=== PATIENT | female | born 1945 | race Caucasian/White ===

== ENCOUNTER 2017-06-11 19:39 | Inpatient (IN) | payer MEDICARE ==
[2017-06-11] MEDS ORDERED: SODIUM CHLORIDE 0.9% 500 ML IV STA (20:09)
--- NOTE | 2017-06-11 20:18 | ED ---
General Adult HPI - General Source: patient, RN notes reviewed Mode of arrival: EMS Limitations: altered mental status <Mehdi Starks - Last Filed: 06/11/17 20:48> <Ernesto Bailon - Last Filed: 06/11/17 23:35> - General Chief complaint: Fall Stated complaint: Fall Time Seen by Provider: 06/11/17 19:40 - History of Present Illness Initial comments: This is a 72-year-old female with a past medical history significant for dementia. Patient comes to the emergency department after she tripped and hurt her right knee and hurt her neck. Patient states she doesn't remember much about the fall but she does not remember having any difficulty breathing shortness of breath or chest pain. Patient believes she just tripped which is not 100% sure because of her dementia she is not that accurate. Patient denies any headache or head pain. Patient denies any numbness or weakness. Patient denies any abdominal pain. Patient denies any recent fever chills or cough. Patient denies any upper extremity or lower extremity injuries. (Mehdi Starks) - Related Data Home Medications Medication Instructions Recorded Confirmed Magnesium Oxide [Mag-Ox] 250 mg PO BID@0800,1800 08/18/15 06/11/17 Potassium Chloride [Klor-Con 20] 20 meq PO HS@1800 08/18/15 06/11/17 Pravastatin Sodium [Pravachol] 40 mg PO Q48H 08/18/15 06/11/17 Diltiazem Oral [Cardizem Oral] 30 mg PO BID@0800,1800 06/11/17 06/11/17 Furosemide [Lasix] 40 mg PO DAILY@0800 06/11/17 06/11/17 Irbesartan [Avapro] 300 mg PO DAILY@0800 06/11/17 06/11/17 Lisinopril [Prinivil] 10 mg PO DAILY 06/11/17 06/11/17 Memantine HCl [Namenda Xr] 14 mg PO DAILY@0800 06/11/17 06/11/17 Pantoprazole Sodium [Protonix] 40 mg PO DAILY@0800 06/11/17 06/11/17 cloNIDine HCL [Catapres] 0.4 mg PO BID@0800,1800 06/11/17 06/11/17 Allergies Allergy/AdvReac Type Severity Reaction Status Date / Time No Known Allergies Allergy Verified 06/11/17 19:54 Review of Systems ROS Other: All systems not noted in ROS Statement are negative. <Mehdi Starks - Last Filed: 06/11/17 20:48> ROS Other: All systems not noted in ROS Statement are negative. <AdamarisErnesto - Last Filed: 06/11/17 23:35> ROS Statement: Those systems with pertinent positive or pertinent negative responses have been documented in the HPI. Past Medical History Past Medical History: Atrial Fibrillation, Dementia, Hypertension, Memory Impairment History of Any Multi-Drug Resistant Organisms: None Reported Past Surgical History: Hysterectomy, Joint Replacement, Tonsillectomy Additional Past Surgical History / Comment(s): rt knee replacement Past Anesthesia/Blood Transfusion Reactions: No Reported Reaction Past Psychological History: No Psychological Hx Reported Smoking Status: Never smoker Past Alcohol Use History: None Reported Past Drug Use History: None Reported - Past Family History Father History Unknown: Yes <StarksMehdi - Last Filed: 06/11/17 20:48> General Exam Limitations: altered mental status <Mehdi Starks - Last Filed: 06/11/17 20:48> <BraddatErnesto - Last Filed: 06/11/17 23:35> - General Exam Comments Initial Comments: GENERAL: Patient is well-developed and well-nourished. Patient is nontoxic and well- hydrated and is in mild distress. ENT: Neck is soft and supple. No significant lymphadenopathy is noted. Oropharynx is clear. Moist mucous membranes. Neck has full range of motion without eliciting any pain. EYES: The sclera were anicteric and conjunctiva were pink and moist. Extraocular movements were intact and pupils were equal round and reactive to light. Eyelids were unremarkable. PULMONARY: Unlabored respirations. Good breath sounds bilaterally. No audible rales rhonchi or wheezing was noted. CARDIOVASCULAR: There is a regular rate and rhythm without any murmurs gallops or rubs. ABDOMEN: Soft and nontender with normal bowel sounds. No palpable organomegaly was noted. There is no palpable pulsatile mass. SKIN: Skin is clear with no lesions or rashes and otherwise unremarkable. NEUROLOGIC: Patient is alert and oriented 2. Cranial nerves II through XII are grossly intact. Motor and sensory are also intact. Normal speech, volume and content. Symmetrical smile. MUSCULOSKELETAL: Patient's right knee is tender to palpation anterior and lateral aspect of the knee LYMPHATICS: No significant lymphadenopathy is noted PSYCHIATRIC: Normal psychiatric evaluation. (Mehdi Starks) Vital Signs 06/11/17 06/11/17 19:40 23:05 Temperature 100.3 F H Pulse Rate 62 75 Respiratory 22 20 Rate Blood Pressure 161/70 146/63 O2 Sat by Pulse 98 97 Oximetry Medical Decision Making - Lab Data Result diagrams: 06/11/17 20:24 <Mehdi Starks - Last Filed: 06/11/17 20:48> - Lab Data Result diagrams: 06/11/17 20:24 06/11/17 20:24 <Ernesto Bailon - Last Filed: 06/11/17 23:35> - Medical Decision Making EKG shows atrial fibrillation at 64 bpm QRS is 94 Q-T intervals 410 QTC is 422. Patient's EKG shows no ST segment elevation or depression or T wave abnormalities are noted. Dr. Chacon will be taking over the care of this patient at 9 PM (Mehdi Starks) Receive this patient has a sign out, pending her studies. I did reevaluate the patient following the studies, and discuss her injuries with her. The patient does appear to have some moderate to severe underlying dementia. In light of this I also phoned the patient's brother who has subsequent come to the hospital and is at the bedside. I did have discussion with the patient prior to his arrival about CODE STATUS and the patient does not demonstrate the capacity to make this decision, nor is she able to answer questions regarding CODE STATUS. Discussion with the patient's brother and his are reveal that she has previously expressed desire not to have machine life-support and they state that they believe is her desire to not have CPR. Discussed the case with Dr[facility], and he will admit the patient provided orthopedic surgery can manage her injuries. I discussed case with the physician assistant director of financial aid covering for [facility], as she turned, who stepped case with Dr. Mann, and they can be managed injuries. They request patient placed into the immobilizer. We have provided analgesia and also immobilized patient's right leg. Patient and family questions answered (Ernesto Bailon) - Lab Data Lab Results 06/11/17 06/11/17 06/11/17 Range/Units 20:24 20:24 20:24 WBC 11.8 H (3.8-10.6) k/uL RBC 4.73 (3.80-5.40) m/uL Hgb 11.9 (11.4-16.0) gm/dL Hct 38.0 (34.0-46.0) % MCV 80.3 (80.0-100.0) fL MCH 25.2 (25.0-35.0) pg MCHC 31.4 (31.0-37.0) g/dL RDW 16.2 H (11.5-15.5) % Plt Count 247 (150-450) k/uL Neutrophils % 91 % Lymphocytes % 3 % Monocytes % 5 % Eosinophils % 0 % Basophils % 0 % Neutrophils # 10.8 H (1.3-7.7) k/uL Lymphocytes # 0.4 L (1.0-4.8) k/uL Monocytes # 0.5 (0-1.0) k/uL Eosinophils # 0.0 (0-0.7) k/uL Basophils # 0.0 (0-0.2) k/uL Hypochromasia Moderate Anisocytosis Slight PT (9.0-12.0) sec INR (<1.2) APTT (22.0-30.0) sec Sodium 140 (137-145) mmol/L Potassium 4.2 (3.5-5.1) mmol/L Chloride 107 (98-107) mmol/L Carbon Dioxide 20 L (22-30) mmol/L Anion Gap 13 mmol/L BUN 27 H (7-17) mg/dL Creatinine 1.20 H (0.52-1.04) mg/dL Est GFR (MDRD) Af Amer 53 (>60 ml/min/1.73 sqM) Est GFR (MDRD) Non-Af 44 (>60 ml/min/1.73 sqM) Glucose 156 H (74-99) mg/dL Calcium 10.1 (8.4-10.2) mg/dL Magnesium 2.1 (1.6-2.3) mg/dL Total Bilirubin 0.3 (0.2-1.3) mg/dL AST 18 (14-36) U/L ALT 27 (9-52) U/L Alkaline Phosphatase 93 (38-126) U/L Total Creatine Kinase 47 (30-135) U/L CK-MB (CK-2) 1.2 (0.0-2.4) ng/mL CK-MB (CK-2) Rel Index 2.6 Troponin I 0.013 (0.000-0.034) ng/mL Total Protein 6.4 (6.3-8.2) g/dL Albumin 3.8 (3.5-5.0) g/dL 06/11/17 Range/Units 20:24 WBC (3.8-10.6) k/uL RBC (3.80-5.40) m/uL Hgb (11.4-16.0) gm/dL Hct (34.0-46.0) % MCV (80.0-100.0) fL MCH (25.0-35.0) pg MCHC (31.0-37.0) g/dL RDW (11.5-15.5) % Plt Count (150-450) k/uL Neutrophils % % Lymphocytes % % Monocytes % % Eosinophils % % Basophils % % Neutrophils # (1.3-7.7) k/uL Lymphocytes # (1.0-4.8) k/uL Monocytes # (0-1.0) k/uL Eosinophils # (0-0.7) k/uL Basophils # (0-0.2) k/uL Hypochromasia Anisocytosis PT 10.0 (9.0-12.0) sec INR 1.0 (<1.2) APTT 23.8 (22.0-30.0) sec Sodium (137-145) mmol/L Potassium (3.5-5.1) mmol/L Chloride (98-107) mmol/L Carbon Dioxide (22-30) mmol/L Anion Gap mmol/L BUN (7-17) mg/dL Creatinine (0.52-1.04) mg/dL Est GFR (MDRD) Af Amer (>60 ml/min/1.73 sqM) Est GFR (MDRD) Non-Af (>60 ml/min/1.73 sqM) Glucose (74-99) mg/dL Calcium (8.4-10.2) mg/dL Magnesium (1.6-2.3) mg/dL Total Bilirubin (0.2-1.3) mg/dL AST (14-36) U/L ALT (9-52) U/L Alkaline Phosphatase (38-126) U/L Total Creatine Kinase (30-135) U/L CK-MB (CK-2) (0.0-2.4) ng/mL CK-MB (CK-2) Rel Index Troponin I (0.000-0.034) ng/mL Total Protein (6.3-8.2) g/dL Albumin (3.5-5.0) g/dL Disposition <Mehdi Starks - Last Filed: 06/11/17 20:48> <Ernesto Bailon - Last Filed: 06/11/17 23:35> Clinical Impression: Fall, Right femoral shaft fracture, Cervical transverse process fracture Disposition: ADMITTED IP TO THIS [facility] Condition: Poor Referrals: None,Stated [Primary Care Provider] - 1-2 days
[2017-06-11 20:38] LABS: Anisocytosis Slight; Basophils % (A) 0 %; Eosinophils % (A) 0 %; HGB 11.9 gm/dL (11.4-16.0); Hypochromasia Moderate; Lymphocytes # (A) 0.4 k/uL (1.0-4.8); Lymphocytes % (A) 3 %; MCH 25.2 pg (25.0-35.0); MCHC 31.4 g/dL (31.0-37.0); MCV 80.3 fL (80.0-100.0); Monocytes # (A) 0.5 k/uL (0-1.0); Monocytes % (A) 5 %; Neutrophils # (A) 10.8 k/uL (1.3-7.7); Neutrophils % (A) 91 %; Platelet Count 247 k/uL (150-450); RBC 4.73 m/uL (3.80-5.40); RDW 16.2 % (11.5-15.5); WBC 11.8 k/uL (3.8-10.6)
[2017-06-11] MEDS ORDERED: ACETAMINOPHEN TAB 500 MG TAB PO STA (20:48)
[2017-06-11 20:49] LABS: Partial Thromboplastin Time 23.8 sec (22.0-30.0)
[2017-06-11 20:50] LABS: Albumin 3.8 g/dL (3.5-5.0); Calcium 10.1 mg/dL (8.4-10.2); Magnesium 2.1 mg/dL (1.6-2.3); Potassium 4.2 mmol/L (3.5-5.1); Total Bilirubin 0.3 mg/dL (0.2-1.3); Total Protein 6.4 g/dL (6.3-8.2)
[2017-06-11 21:16] LABS: Creatine Kinase MB 1.2 ng/mL (0.0-2.4); Troponin I 0.013 ng/mL (0.000-0.034)
--- NOTE | 2017-06-11 21:18 | CT ---
EXAMINATION TYPE: CT brain annika kraus DATE OF EXAM: 06/11/2017 COMPARISON: NONE HISTORY: Fall today on carpet. History of dementia. CT DLP: 2155.90 mGycm Automated exposure control for dose reduction was used. TECHNIQUE: CT scan of the head and cervical spine are performed without contrast. Examination is subo ptimal due to motion artifact. FINDINGS: There is no acute intracranial hemorrhage, mass effect, or midline shift identified. Mode rate cortical atrophy and chronic white matter ischemic changes are noted. The ventricles and sulci a re within normal limits in size. The globes are intact and the visualized sinuses are clear. Cervical spine is visualized in its entirety from C1 through upper thoracic levels and demonstrates s atisfactory alignment. There is a lucency identified in the transverse process on the left at the lev el of C6 which is felt to be a fracture. This is complete and minimally displaced. Multilevel degener ative changes are identified in the cervical spine with multiple levels demonstrating endplate spurri ng and facet hypertrophy. Prevertebral soft tissue appears within normal limits. The C1-C2 articulat ion is unremarkable. IMPRESSION: 1. Complete minimally displaced fracture of the posterior transverse process on the left at the level of C6. 2. No acute intracranial hemorrhage, mass effect, or midline shift is seen.
--- NOTE | 2017-06-11 21:49 | XR ---
EXAMINATION TYPE: XR chest 1V DATE OF EXAM: 06/11/2017 COMPARISON: August 19, 2015 HISTORY: Chest pain TECHNIQUE: Single frontal view of the chest is obtained. FINDINGS: Mild cephalization of the pulmonary vasculature is identified which could be due to mild CH F. No pleural effusion or pneumothorax is identified. The cardiac silhouette is borderline enlarged. IMPRESSION: Findings concerning for mild congestive heart failure.
[2017-06-11] MEDS ORDERED: MORPHINE SULFATE 2 MG/ML SYRINGE IVP ONE (21:50)
--- NOTE | 2017-06-11 21:50 | XR ---
Exam: Right knee complete TECHNIQUE: 2 views of the right knee were obtained. HISTORY: Right knee pain. Findings: There is an acute complete comminuted fracture of the distal aspect of the femur. There frannie ears to be 1.5 cm of impaction. There is previously been a tricompartmental knee arthroplasty. Extens suhail soft tissue swelling is noted as well as a lipohemarthrosis. IMPRESSION: Acute complete comminuted and impacted fracture of the distal femur.
[2017-06-11] MEDS: MORPHINE SULFATE 5 MG/ML SYRINGE IV STA ×2 (21:55→23:24)
[2017-06-11] MEDS ORDERED: ACETAMINOPHEN TAB 325 MG TAB PO PRN (22:38)
[2017-06-11] MEDS ORDERED: NALOXONE 0.4 MG/ML 1 ML VIAL IV PRN (22:38)
[2017-06-11] MEDS ORDERED: ONDANSETRON 4 MG/2 ML VIAL IVP PRN (22:38)
[2017-06-11] MEDS ORDERED: MORPHINE SULFATE 5 MG/ML SYRINGE IV STA (23:23)
[2017-06-12 00:03] VITALS: BMI 40.7
[2017-06-12] MEDS: HYDROcodone/APAP 5-325MG 1 EACH TAB PO PRN ×5 (00:57→20:27)
[2017-06-12] MEDS: MORPHINE SULFATE 2 MG/ML SYRINGE IV PRN ×5 (03:35→20:08)
[2017-06-12] MEDS: cloNIDine HCL 0.2 MG TAB PO SCH ×3 (03:56→20:20)
[2017-06-12] MEDS: MAGNESIUM OXIDE 400 MG TAB PO SCH ×3 (03:57→20:19)
[2017-06-12] MEDS: DILTIAZEM ORAL 30 MG TAB PO SCH ×3 (03:57→20:20)
[2017-06-12] MEDS ORDERED: DILTIAZEM ORAL 30 MG TAB PO SCH (08:00)
[2017-06-12] MEDS ORDERED: MAGNESIUM OXIDE 400 MG TAB PO SCH (08:00)
[2017-06-12] MEDS ORDERED: cloNIDine HCL 0.2 MG TAB PO SCH (08:00)
--- NOTE | 2017-06-12 08:15 | P.CNOR ---
History of Present Illness - HPI Consult date: 06/12/17 History of present illness: This is a 72-year-old female with a known history of dementia who is admitted for a right distal femur fracture after a fall. Patient also sustained a neck injury. Patient states she does not remember what happened. There is no family present in the room to speak with. Patient was evaluated in the emergency room. Patient does admit to pain in the right lower extremity. Patient denies pain in the upper extremities, left lower extremity, neck, back or hips. Patient denies any fever/chills, numbness, tingling or weakness. Review of Systems See HPI. Past Medical History Past Medical History: Atrial Fibrillation, Dementia, Hypertension, Memory Impairment History of Any Multi-Drug Resistant Organisms: None Reported Past Surgical History: Hysterectomy, Joint Replacement, Tonsillectomy Additional Past Surgical History / Comment(s): rt knee replacement; gastric bypass Past Anesthesia/Blood Transfusion Reactions: No Reported Reaction Past Psychological History: No Psychological Hx Reported Smoking Status: Never smoker Past Alcohol Use History: None Reported Past Drug Use History: None Reported - Past Family History Father History Unknown: Yes Medications and Allergies Home Medications Medication Instructions Recorded Confirmed Type Magnesium Oxide [Mag-Ox] 250 mg PO BID@0800,1800 08/18/15 06/11/17 History Potassium Chloride [Klor-Con 20] 20 meq PO HS@1800 08/18/15 06/11/17 History Pravastatin Sodium [Pravachol] 40 mg PO Q48H 08/18/15 06/11/17 History Diltiazem Oral [Cardizem Oral] 30 mg PO BID@0800,1800 06/11/17 06/11/17 History Furosemide [Lasix] 40 mg PO DAILY@0806/11/17 06/11/17 History Irbesartan [Avapro] 300 mg PO DAILY@0800 06/11/17 06/11/17 History Lisinopril [Prinivil] 10 mg PO DAILY 06/11/17 06/11/17 History Memantine HCl [Namenda Xr] 14 mg PO DAILY@0800 06/11/17 06/11/17 History Pantoprazole Sodium [Protonix] 20 mg PO DAILY@0800 06/11/17 06/11/17 History cloNIDine HCL [Catapres] 0.4 mg PO BID@0800,1800 06/11/17 06/11/17 History Allergies Allergy/AdvReac Type Severity Reaction Status Date / Time No Known Allergies Allergy Verified 06/11/17 19:54 Physical Examination On exam patient is alert and in no acute distress. Knee immobilizer is removed from the right lower extremity revealing mild deformity at the knee. There is mild soft tissue swelling. Skin is intact. Calf is soft and nontender to palpation. Patient has full foot and ankle motion without difficulty or pain. Right lower extremity is warm and well perfused. Neurovascular status and circulatory status are intact. Results X-rays of the right knee are reviewed showing an acute complete comminuted and impacted fracture of the distal femur. CT of the head and cervical spine shows #1 complete displaced fracture of the posterior transverse process on the left at the level of C6. #2 no acute intracranial hemorrhage, mass effect, or midline shift is seen. - Labs Labs: Abnormal Lab Results - Last 24 Hours (Table) 06/11/17 06/11/17 Range/Units 20:24 20:24 WBC 11.8 H (3.8-10.6) k/uL RDW 16.2 H (11.5-15.5) % Neutrophils # 10.8 H (1.3-7.7) k/uL Lymphocytes # 0.4 L (1.0-4.8) k/uL Carbon Dioxide 20 L (22-30) mmol/L BUN 27 H (7-17) mg/dL Creatinine 1.20 H (0.52-1.04) mg/dL Glucose 156 H (74-99) mg/dL H & H 06/11/17 Range/Units 20:24 Hgb 11.9 (11.4-16.0) gm/dL Hct 38.0 (34.0-46.0) % Coagulation 06/11/17 Range/Units 20:24 INR 1.0 (<1.2) Result Diagrams: 06/11/17 20:24 06/11/17 20:24 Assessment and Plan (1) Fracture of distal end of right femur Current Visit: Yes Status: Acute Code(s): S72.401A - UNSP FRACTURE OF LOWER END OF RIGHT FEMUR, INIT FOR CLOS FX SNOMED Code(s): 413579823 (2) Hx of total knee arthroplasty Current Visit: Yes Status: Acute Code(s): Z96.659 - PRESENCE OF UNSPECIFIED ARTIFICIAL KNEE JOINT SNOMED Code(s): 9409691758638 (3) Cervical transverse process fracture Current Visit: Yes Status: Acute Code(s): S12.9XXA - FRACTURE OF NECK, UNSPECIFIED, INITIAL ENCOUNTER SNOMED Code(s): 356467805 (4) Fall Current Visit: Yes Status: Acute Code(s): W19.XXXA - UNSPECIFIED FALL, INITIAL ENCOUNTER SNOMED Code(s): 9453687 Plan: #1. Maintain knee immobilizer to the right lower extremity along with nonweightbearing status. #2. Maintain cervical collar #3. Rest, ice and elevate the right lower extremity. #4. Continue pain control. #5. ORIF of the right distal femur is planned for Tuesday06/14/2017 pending medical clearance.
[2017-06-12] MEDS: LISINOPRIL 10 MG TAB PO SCH (08:32)
[2017-06-12] MEDS: PRAVASTATIN SODIUM 40 MG TAB PO SCH (08:32)
[2017-06-12] MEDS: FUROSEMIDE 40 MG TAB PO SCH (08:41)
[2017-06-12] MEDS: LOSARTAN 50 MG TAB PO SCH (08:43)
[2017-06-12] MEDS: FAMOTIDINE 20 MG TAB PO SCH ×2 (08:44→20:19)
[2017-06-12] MEDS: MEMANTINE 5 MG TAB PO SCH ×2 (08:45→20:20)
[2017-06-12] MEDS: PANTOPRAZOLE 40 MG TABLET PO SCH (08:45)
[2017-06-12] MEDS: ENOXAPARIN 40 MG/0.4 ML SYRINGE SQ SCH (11:14)
--- NOTE | 2017-06-12 12:17 | P.GSHP ---
History of Present Illness H&P Date: 06/12/17 Chief Complaint: Fall Patient presents to the emergency department last night. She lives in assisted living. She apparently fell from a standing position. She has dementia and has poor short-term memory just chronic for her. Per the patient's brother there is no change in baseline patient. In the ER the patient was complaining of her neck and her right knee. Limited workup showed a transverse process fracture of C6. She was also found have a right femoral fracture above a previous knee replacement. Complains of only pain in the neck and then leg at this time. Denies shortness of breath, no chest pain. She was evaluated today by orthopedics. They have plans for repair femoral fracture this Tuesday after medical clearance obtained. She has a c-collar intact currently. - Review of Systems Comment: The patient denies any acute changes in vision or hearing, no dysphagia or odynophagia, no chest pain or shortness of breath, no dysuria or hematuria, no headache, no runny nose, no rectal bleeding or melena, no unexplained weight loss Past Medical History Past Medical History: Atrial Fibrillation, Dementia, Hypertension, Memory Impairment History of Any Multi-Drug Resistant Organisms: None Reported Past Surgical History: Hysterectomy, Joint Replacement, Tonsillectomy Additional Past Surgical History / Comment(s): rt knee replacement; gastric bypass Past Anesthesia/Blood Transfusion Reactions: No Reported Reaction Past Psychological History: No Psychological Hx Reported Smoking Status: Never smoker Past Alcohol Use History: None Reported Past Drug Use History: None Reported - Past Family History Father History Unknown: Yes Medications and Allergies Home Medications Medication Instructions Recorded Confirmed Type Magnesium Oxide [Mag-Ox] 250 mg PO BID@0800,1800 08/18/15 06/11/17 History Potassium Chloride [Klor-Con 20] 20 meq PO HS@1800 08/18/15 06/11/17 History Pravastatin Sodium [Pravachol] 40 mg PO Q48H 08/18/15 06/11/17 History Diltiazem Oral [Cardizem Oral] 30 mg PO BID@0800,1800 06/11/17 06/11/17 History Furosemide [Lasix] 40 mg PO DAILY@0800 06/11/17 06/11/17 History Irbesartan [Avapro] 300 mg PO DAILY@0800 06/11/17 06/11/17 History Lisinopril [Prinivil] 10 mg PO DAILY 06/11/17 06/11/17 History Memantine HCl [Namenda Xr] 14 mg PO DAILY@0800 06/11/17 06/11/17 History Pantoprazole Sodium [Protonix] 20 mg PO DAILY@0800 06/11/17 06/11/17 History cloNIDine HCL [Catapres] 0.4 mg PO BID@0800,1800 06/11/17 06/11/17 History Allergies Allergy/AdvReac Type Severity Reaction Status Date / Time No Known Allergies Allergy Verified 06/11/17 19:54 Surgical - Exam Vital Signs Temp Pulse Resp BP Pulse Ox 100.3 F H 62 22 161/70 98 06/11/17 19:40 06/11/17 19:40 06/11/17 19:40 06/11/17 19:40 06/11/17 19:40 Physical exam: General: Well-developed, well-nourished HEENT: Normocephalic, sclerae nonicteric, trachea midline, mild neck tenderness , c-collar intact Chest: Equal breath sounds, nontender Abdomen: Nontender, nondistended Extremities: Right lower extremity tenderness Neuro: Alert and to person and place Results - Labs 06/11/17 20:24 06/11/17 20:24 Abnormal Lab Results - Last 24 Hours (Table) 06/11/17 06/11/17 Range/Units 20:24 20:24 WBC 11.8 H (3.8-10.6) k/uL RDW 16.2 H (11.5-15.5) % Neutrophils # 10.8 H (1.3-7.7) k/uL Lymphocytes # 0.4 L (1.0-4.8) k/uL Carbon Dioxide 20 L (22-30) mmol/L BUN 27 H (7-17) mg/dL Creatinine 1.20 H (0.52-1.04) mg/dL Glucose 156 H (74-99) mg/dL Diabetes panel 06/11/17 Range/Units 20:24 Sodium 140 (137-145) mmol/L Potassium 4.2 (3.5-5.1) mmol/L Chloride 107 (98-107) mmol/L Carbon Dioxide 20 L (22-30) mmol/L BUN 27 H (7-17) mg/dL Creatinine 1.20 H (0.52-1.04) mg/dL Glucose 156 H (74-99) mg/dL Calcium 10.1 (8.4-10.2) mg/dL AST 18 (14-36) U/L ALT 27 (9-52) U/L Alkaline Phosphatase 93 (38-126) U/L Total Protein 6.4 (6.3-8.2) g/dL Albumin 3.8 (3.5-5.0) g/dL Calcium panel 06/11/17 Range/Units 20:24 Calcium 10.1 (8.4-10.2) mg/dL Albumin 3.8 (3.5-5.0) g/dL Pituitary panel 06/11/17 Range/Units 20:24 Sodium 140 (137-145) mmol/L Potassium 4.2 (3.5-5.1) mmol/L Chloride 107 (98-107) mmol/L Carbon Dioxide 20 L (22-30) mmol/L BUN 27 H (7-17) mg/dL Creatinine 1.20 H (0.52-1.04) mg/dL Glucose 156 H (74-99) mg/dL Calcium 10.1 (8.4-10.2) mg/dL Adrenal panel 06/11/17 Range/Units 20:24 Sodium 140 (137-145) mmol/L Potassium 4.2 (3.5-5.1) mmol/L Chloride 107 (98-107) mmol/L Carbon Dioxide 20 L (22-30) mmol/L BUN 27 H (7-17) mg/dL Creatinine 1.20 H (0.52-1.04) mg/dL Glucose 156 H (74-99) mg/dL Calcium 10.1 (8.4-10.2) mg/dL Total Bilirubin 0.3 (0.2-1.3) mg/dL AST 18 (14-36) U/L ALT 27 (9-52) U/L Alkaline Phosphatase 93 (38-126) U/L Total Protein 6.4 (6.3-8.2) g/dL Albumin 3.8 (3.5-5.0) g/dL Assessment and Plan (1) Fall Narrative/Plan: Consult medicine for medical clearance and medical management. We will add pelvis x-ray. CAT scan chest and pelvis will be held off for now we'll follow the patient clinically. Continue GI and DVT prophylaxis. Continue diet. Await final orthopedic recommendations regarding c-collar. Current Visit: Yes Status: Acute Code(s): W19.XXXA - UNSPECIFIED FALL, INITIAL ENCOUNTER SNOMED Code(s): 7546911
[2017-06-12] MEDS: SODIUM CHLORIDE 0.9% 1,000 ML IV SCH (15:11)
--- NOTE | 2017-06-12 15:47 | XR ---
EXAMINATION TYPE: XR pelvis AP view DATE OF EXAM: 06/12/2017 CLINICAL HISTORY: Pain after a fall TECHNIQUE: A single AP view of the pelvis is obtained. COMPARISON: None. FINDINGS: The exam is suboptimal for evaluation of femoral fracture due to patient positioning. No gr oss evidence of femoral fracture is seen. Myositis ossificans is noted of the left gluteal region. He terotopic ossification/enthesopathy is seen of the iliac crests. Postsurgical changes of the lower nadege mbar spine are noted. Mild osseous demineralization is seen. Sacroiliac joints are symmetric as is th e pubic symphysis. Moderate femoral acetabular arthropathy is also noted bilaterally. IMPRESSION: 1. No gross evidence for pelvic fracture although the exam is somewhat limited for evaluation of the proximal femurs given patient positioning. 2. Moderate degenerative changes of the femoral acetabular joints, postsurgical changes of the lower lumbar spine and myositis ossificans of the left gluteal region.
--- NOTE | 2017-06-12 17:07 | CONS ---
CONSULTATION DATE OF CONSULTATION: 06/12/17 REASON FOR CONSULTATION: Medical management requested by Dr. Rodriguez. CONSULTATION: This is a 72-year-old patient of visiting physician, Dr. Patino, lives at the [facility]. Uses a cane. Fell near the door. This was a mechanical fall after losing balance. No chest pain. No palpitation. No passing-out. As a subsequent start the patient is now diagnosed to have a C6 transverse process fracture on the left side, right distal femur fracture. Right leg is in a brace. The patient's son and daughter at the bedside. The patient's chronic stable medical conditions include hypertension, dementia, atrial fibrillation. Not a candidate for anticoagulation because of previous nosebleeds. The patient is able to answer simple questions. REVIEW OF SYSTEMS: CONSTITUTIONAL: None. HEENT none. Respiratory none. Cardiovascular none. Gastrointestinal none. Genitourinary: None. Musculoskeletal arthritic pain in joints and at the fracture site. Dermatological: None. Hematologic none. Lymphatics none. Psychiatry: Forgetful. Neurological uses a cane. PAST MEDICAL HISTORY: Atrial fibrillation, dementia, hypertension. PAST SURGICAL HISTORY: Hysterectomy, joint replacement, tonsillectomy, right knee replacement, gastric bypass. SOCIAL HISTORY: No smoking. No alcohol. Lives at the [facility]. FAMILY HISTORY: Reviewed, noncontributory to presentation. HOME MEDICATIONS: 1. Protonix 20 mg a day. 2. Prinivil 10 mg a day. 3. Pravachol 40 mg every 48 hours. 4. Catapres 0.4 mg p.o. b.i.d. 5. Klor-Con 20 mEq p.o. q.h.s. 6. Namenda XR 40 mg p.o. daily. 7. Magnesium oxide 250 mg p.o. b.i.d. 8. Avapro 300 mg p.o. daily. 9. Lasix 40 mg p.o. daily. 10.Cardizem 30 mg p.o. t.i.d. ALLERGIES: None. PHYSICAL EXAMINATION: Temperature 98.2, pulse 91, respirations 16, blood pressure 164/90, pulse ox 98% on room. General appearance: Well built, BMI 40.7. Lying in bed. Eyes pupils equal. Conjunctivae normal. HEENT external appearance of nose and ears normal. Oral cavity normal. Neck cervical collar in place. Respiratory effort normal. Lungs slightly decreased breath sounds. Cardiovascular heart sounds irregular. No edema. ABDOMEN: Soft, nontender. Liver and spleen not palpable. Lymphatics: No lymph nodes palpable in neck or axillae. Psychiatry: The patient is slowly able to tell the name of the hospital. It took a while to tell me it is May. Able to answer simple questions. Neurological: Pupils equal. No facial asymmetry. Moving all limbs. Extremities: Right lower extremity in a knee brace and cervical collar in place. INVESTIGATIONS: White count 11.8, hemoglobin 11.9, potassium 4.2, BUN 27, creatinine 1.20. X-ray of the right leg shows distal femur fracture and also the patient has a C6 transverse process fracture on the left side. EKG atrial fibrillation, rate controlled. ASSESSMENT: 1. Right distal femur fracture secondary to fall. 2. C6 transverse process fracture on the left side with a cervical collar in place. 3. Morbid obesity BMI 40.7. 4. Persistent atrial fibrillation. The patient is not a candidate for anticoagulation because of bleeding in the past. 5. Alzheimer's dementia with no psychosis. 6. Essential hypertension uncontrolled. PLAN: Home medications will be resumed. Pain control is in place. We will use Lovenox for DVT prophylaxis. The patient has got a limited exercise tolerance. Uses a cane to get about, but denies any chest pain or palpitation. The patient given her age and vascular surgery remains in [id number] risk for surgery with no evident immediate contraindications. Care was discussed the patient and the family at the bedside. Questions were answered. Thank you Dr. Rodriguez. Copy to Dr. Patino from [facility]. MMODL / IJN: [id number] /
[2017-06-12] MEDS: POTASSIUM CHLORIDE ER 20 MEQ TAB.ER PO SCH (20:19)
[2017-06-13] MEDS: HYDROcodone/APAP 5-325MG 1 EACH TAB PO PRN ×5 (02:15→21:29)
[2017-06-13] MEDS: MORPHINE SULFATE 2 MG/ML SYRINGE IV PRN (05:02)
[2017-06-13] MEDS ORDERED: diphenhydrAMINE 25 MG CAP PO PRN (05:06)
[2017-06-13 07:19] LABS: Basophils % (A) 0 %; Eosinophils # (A) 0.1 k/uL (0-0.7); Eosinophils % (A) 1 %; HCT 35.1 % (34.0-46.0); HGB 10.6 gm/dL (11.4-16.0); Hypochromasia Marked; Lymphocytes # (A) 1.6 k/uL (1.0-4.8); Lymphocytes % (A) 17 %; MCH 25.4 pg (25.0-35.0); MCHC 30.2 g/dL (31.0-37.0); MCV 84.1 fL (80.0-100.0); Mean Platelet Volume 7.8; Monocytes # (A) 0.9 k/uL (0-1.0); Monocytes % (A) 10 %; Neutrophils # (A) 6.6 k/uL (1.3-7.7); Neutrophils % (A) 70 %; Platelet Count 218 k/uL (150-450); RBC 4.17 m/uL (3.80-5.40); RDW 15.3 % (11.5-15.5); WBC 9.5 k/uL (3.8-10.6)
[2017-06-13 07:54] LABS: ALT 27 U/L (9-52); AST 17 U/L (14-36); Albumin 3.5 g/dL (3.5-5.0); Alkaline Phosphatase 78 U/L (38-126); Anion Gap 10 mmol/L; Blood Urea Nitrogen 19 mg/dL (7-17); Calcium 9.4 mg/dL (8.4-10.2); Carbon Dioxide 22 mmol/L (22-30); Chloride 110 mmol/L (98-107); Glucose 113 mg/dL (74-99); Potassium 4.9 mmol/L (3.5-5.1); Sodium 142 mmol/L (137-145); Total Bilirubin 0.6 mg/dL (0.2-1.3); Total Protein 6.2 g/dL (6.3-8.2)
[2017-06-13] MEDS: MAGNESIUM OXIDE 400 MG TAB PO SCH ×2 (08:42→16:52)
[2017-06-13] MEDS: PANTOPRAZOLE 40 MG TABLET PO SCH (08:42)
[2017-06-13] MEDS: cloNIDine HCL 0.2 MG TAB PO SCH (08:42)
[2017-06-13] MEDS: MEMANTINE 5 MG TAB PO SCH ×2 (08:42→16:53)
[2017-06-13] MEDS: FUROSEMIDE 40 MG TAB PO SCH (08:43)
[2017-06-13] MEDS: FAMOTIDINE 20 MG TAB PO SCH (08:43)
[2017-06-13] MEDS: DILTIAZEM ORAL 30 MG TAB PO SCH ×2 (08:43→16:53)
[2017-06-13] MEDS: LISINOPRIL 10 MG TAB PO SCH (08:43)
[2017-06-13] MEDS: LOSARTAN 50 MG TAB PO SCH (08:48)
[2017-06-13] MEDS: ENOXAPARIN 40 MG/0.4 ML SYRINGE SQ SCH (08:48)
--- NOTE | 2017-06-13 09:56 | P.PN ---
Subjective Progress Note Date: 06/13/17 This is a 72-year-old female admitted for right distal femur fracture and fracture of C6 transverse process. Patient does report pain to the right lower extremity but states pain is under control. Patient has a history of dementia and does not remember how this fall occurred. Patient states her neck has been painful but she is tolerating the cervical collar. Patient has no new complaints today. Objective - Vital Signs Vital signs: Vital Signs Temp 98.8 F 06/13/17 07:00 Pulse 99 06/13/17 07:00 Resp 16 06/13/17 07:00 BP 168/82 06/13/17 07:00 Pulse Ox 97 06/13/17 07:00 Intake & Output 06/12/17 06/13/17 06/13/17 18:59 06:59 18:59 Intake Total 480 Output Total 800 950 Balance -320 -950 Intake: Oral 480 Output: Urine 800 950 Other: Voiding Method Indwelling Catheter Indwelling Catheter - Exam On exam patient is sitting up in bed and in no acute distress. Knee immobilizer intact to the right lower extremity. Patient has full foot and ankle motion without difficulty. Sensation intact to the right foot. Neurovascular status and circulatory status intact. - Labs CBC & Chem 7: 06/13/17 06:59 06/13/17 06:59 Labs: Abnormal Lab Results - Last 24 Hours (Table) 06/13/17 06/13/17 Range/Units 06:59 06:59 Hgb 10.6 L (11.4-16.0) gm/dL MCHC 30.2 L (31.0-37.0) g/dL Chloride 110 H (98-107) mmol/L BUN 19 H (7-17) mg/dL Glucose 113 H (74-99) mg/dL Total Protein 6.2 L (6.3-8.2) g/dL Assessment and Plan (1) Fracture of distal end of right femur Current Visit: Yes Status: Acute Code(s): S72.401A - UNSP FRACTURE OF LOWER END OF RIGHT FEMUR, INIT FOR CLOS FX SNOMED Code(s): 433255331 (2) Hx of total knee arthroplasty Current Visit: Yes Status: Acute Code(s): Z96.659 - PRESENCE OF UNSPECIFIED ARTIFICIAL KNEE JOINT SNOMED Code(s): 4298190491069 (3) Cervical transverse process fracture Current Visit: Yes Status: Acute Code(s): S12.9XXA - FRACTURE OF NECK, UNSPECIFIED, INITIAL ENCOUNTER SNOMED Code(s): 060438215 (4) Fall Current Visit: Yes Status: Acute Code(s): W19.XXXA - UNSPECIFIED FALL, INITIAL ENCOUNTER SNOMED Code(s): 2519500 Plan: #1. Maintain knee immobilizer to the right lower extremity along with nonweightbearing status. #2. Maintain cervical collar at all times #3. Rest, ice and elevate the right lower extremity. #4. Continue pain control. #5. NPO at midnight #6. ORIF of the right distal femur is planned for tomorrow.
--- NOTE | 2017-06-13 11:38 | P.PN ---
<LitoNandaPepper M - Last Filed: 06/13/17 11:38> Subjective Progress Note Date: 06/13/17 72-year-old female seen and examined resting in bed patient is status post fall from a standing position resulting in a fracture of the distal end of the right femur. Patient is being scheduled per orthopedics tomorrow to undergo an ORIF of the right distal femur. Currently denying dizziness lightheadedness chest pain or shortness of breath. Immobilizer is in place to the right lower extremity with a cervical collar in place Patient states she remembers why she fell. was going back and forth to the bathroom having loose frequent stools tripped on something fell Objective - Vital Signs Vital signs: Vital Signs Temp 98.8 F 06/13/17 07:00 Pulse 99 06/13/17 07:00 Resp 16 06/13/17 07:00 BP 168/82 06/13/17 07:00 Pulse Ox 97 06/13/17 07:00 Intake & Output 06/12/17 06/13/17 06/13/17 18:59 06:59 18:59 Intake Total 480 Output Total 800 950 Balance -320 -950 Weight 117.934 kg Intake: Oral 480 Output: Urine 800 950 Other: Voiding Method Indwelling Catheter Indwelling Catheter - Exam Physical exam 72-year-old female sitting up in bed pleasant cooperative talkative with a c- collar on Lungs diminished at the bases otherwise adequate air movement Heart S1-S2 audible regular denying chest pain when questioning Abdomen indwelling Villa catheter in place soft nondistended no stool no nausea no vomiting bowel tones present nontender Extremities upper extremities unremarkable right lower extremity immobilizer in place - Labs CBC & Chem 7: 06/13/17 06:59 06/13/17 06:59 Labs: Abnormal Lab Results - Last 24 Hours (Table) 06/13/17 06/13/17 Range/Units 06:59 06:59 Hgb 10.6 L (11.4-16.0) gm/dL MCHC 30.2 L (31.0-37.0) g/dL Chloride 110 H (98-107) mmol/L BUN 19 H (7-17) mg/dL Glucose 113 H (74-99) mg/dL Total Protein 6.2 L (6.3-8.2) g/dL Assessment and Plan Assessment: Impression Fall from a standing position with right femoral fracture Baseline dementia with short-term memory loss Hypertension History of gastric bypass in 1979 Chronic debility with the use of a cane Fracture of C6 transverse Plan right femur tomorrow scheduled per orthopedic IV fluid for hydration as ordered Pain control Continue with the c-collar is needed per orthopedics recommendations CAT scan of the chest and pelvis on hold will re-eval DVT and GI prophylaxis Further recommendations pending The above impression and plan of care have been discussed and directed by signing physician. Pepper Morse nurse practitioner acting as scribe for signing physician. <Saulo Rodriguez - Last Filed: 06/13/17 17:05> Objective - Vital Signs Vital signs: Vital Signs Temp 98.6 F 06/13/17 15:00 Pulse 89 06/13/17 15:00 Resp 16 06/13/17 15:00 BP 141/83 06/13/17 15:00 Pulse Ox 96 06/13/17 15:00 Intake & Output 06/12/17 06/13/17 06/13/17 18:59 06:59 18:59 Intake Total 480 1386 Output Total 498 186 8492 Balance -320 -950 -264 Weight 117.934 kg Intake: Intake, IV Titration 675 Amount Sodium Chloride 0.9% 1, 675 000 ml @ 75 mls/hr IV . [id number] [facility] Rx#:[id number] Oral 480 711 Output: Urine 561 111 7309 Other: Voiding Method Indwelling Catheter Indwelling Catheter - Labs CBC & Chem 7: 06/13/17 06:59 06/13/17 06:59 Labs: Abnormal Lab Results - Last 24 Hours (Table) 06/13/17 06/13/17 Range/Units 06:59 06:59 Hgb 10.6 L (11.4-16.0) gm/dL MCHC 30.2 L (31.0-37.0) g/dL Chloride 110 H (98-107) mmol/L BUN 19 H (7-17) mg/dL Glucose 113 H (74-99) mg/dL Total Protein 6.2 L (6.3-8.2) g/dL Assessment and Plan Assessment: As above. No further general surgery plans for this patient. We'll transfer this patient to the medical service at this point. Continue orthopedic evaluation and care. (1) Fall Current Visit: Yes Status: Acute Code(s): W19.XXXA - UNSPECIFIED FALL, INITIAL ENCOUNTER SNOMED Code(s): 2264658
--- NOTE | 2017-06-13 16:50 | PN ---
PROGRESS NOTE DATE OF SERVICE: 06/13/17 ATTENDING NOTE: Patient was seen and examined by me. I discussed with nurse practitioner, Ms. Watson. The patient is status post right distal femur fracture and fracture. Has got a new collar in place. Feels more comfortable. Tolerating a diet. Awaiting surgery tomorrow. Brother at the bedside. PHYSICAL EXAMINATION: On examination, afebrile, pulse 99, respiratory rate 16. Blood pressure 160/82, pulse ox 97% on room air. Lungs are clear. Cardiovascular 1st and 2nd sounds are normal. ASSESSMENT: 1. Right distal femur fracture and C6 transverse process fracture. 2. Essential hypertension, still somewhat uncontrolled. PLAN: Will change the patient's Catapres to 2.3 mg 3 times a day. Other medication and treatment plan is to continue. MMODL / IJN: [id number] /
[2017-06-13] MEDS: cloNIDine HCL 0.1 MG TAB PO SCH ×2 (16:51→21:29)
[2017-06-13] MEDS: HEPARIN SODIUM,PORCINE 5,000 UNIT/ML 1 ML VIAL SQ SCH ×2 (16:52→23:52)
[2017-06-13] MEDS: POTASSIUM CHLORIDE ER 20 MEQ TAB.ER PO SCH (16:52)
[2017-06-13] MEDS: SODIUM CHLORIDE 0.9% 1,000 ML IV SCH ×2 (18:15→21:35)
--- NOTE | 2017-06-13 20:05 | P.PN ---
Progress Note - Text Progress Note Date: 06/13/17 DATE OF SERVICE: 06/13/2017 PRESENTING COMPLAINT: Status post fall HISTORY OF PRESENT ILLNESS: 72-year-old female who uses a cane and fell near the door after she lost her balance was a mechanical fall. No chest pain or palpitations no passing out. As result patient has sustained a C6 transverse process fracture on the left side and a right distal femur fracture. Surgical intervention scheduled for 06/14/2017. INTERVAL HISTORY: 06/13/2017: Lying in bed she is wearing a hard neck brace once it switched out. It's causing her tremendous amount of pain. No acute overnight events, afebrile, blood pressure and vital signs stable. Neck and right leg causing the patient fair amount of pain pain medications on board and do a pretty good job keeping the pain under control. Tolerating her diet, currently remains on bedrest and last BM prior to admission. REVIEW OF SYSTEMS: Done for constitutional ,cardiovascular, GI, pulmonary with relevant findings as above. CURRENT MEDICATIONS Tylenol, Warner, Catapres, Cardizem, Benadryl, Lasix, heparin, lisinopril, Cozaar , Namenda, mag oxide, morphine sulfate, Narcan, Zofran, Protonix, potassium chloride, Pravachol. PHYSICAL EXAM VITAL SIGNS: Temp temperature 98.8, pulse 99, respiratory rate 18, blood pressure 160/82, oxygen saturation 97% GENERAL APPEARANCE: Lying in bed, not in distress. HEENT: Normocephalic, Pupils equal. Conjunctiva normal. JVD not raised. Mass not palpable.: RESPIRATORY: Respiratory effort normal. Lungs clear to auscultation. CARDIOVASCULAR: Irregular rhythm. No edema. ABDOMEN: Soft. Liver and spleen not palpable. No tenderness. No mass palpable. GENITOURINARY: Villa catheter in place PSYCHIATRY: Able to answer simple straightforward questions. Mood and affect normal. EXTREMITY, right lower extremity in a knee brace and cervical collar in place INVESTIGATIONS: Hemoglobin 10.6, chloride 110, BUN 19, ASSESSMENT: -Right distal femur fracture secondary to a fall. -C6 transverse process fracture on the left side with cervical collar in place. -Morbid obesity BMI 40.7. -Persistent atrial fibrillation, patient is not a candidate for anticoagulation because of bleeding in the past. -Alzheimer's dementia with no psychoses. -Essential hypertension, uncontrolled PLAN: Continue current medication treatment plan, Lovenox for DVT prophylaxis. Surgery scheduled for the morning will be made nothing by mouth after midnight. Plan of care discussed the bedside we will continue to follow closely. PHOTOGRAMMETRY AIRPLANE PILOT statement: Patient was seen and examined by nurse practitioner Moira Watson and all elements of the case discussed with attending Dr. Hancock
[2017-06-14] MEDS: HEPARIN SODIUM,PORCINE 5,000 UNIT/ML 1 ML VIAL SQ SCH (08:34)
[2017-06-14] MEDS: FUROSEMIDE 40 MG TAB PO SCH (08:37)
[2017-06-14] MEDS: LOSARTAN 50 MG TAB PO SCH (08:37)
[2017-06-14] MEDS: LISINOPRIL 10 MG TAB PO SCH (08:37)
[2017-06-14] MEDS: MEMANTINE 5 MG TAB PO SCH ×2 (08:37→17:18)
[2017-06-14] MEDS: DILTIAZEM ORAL 30 MG TAB PO SCH ×2 (08:38→17:17)
[2017-06-14] MEDS: cloNIDine HCL 0.1 MG TAB PO SCH ×3 (08:38→21:33)
[2017-06-14] MEDS: MORPHINE SULFATE 2 MG/ML SYRINGE IV PRN ×2 (08:44→18:48)
[2017-06-14] MEDS: PANTOPRAZOLE 40 MG TABLET PO SCH (08:50)
[2017-06-14] MEDS: MAGNESIUM OXIDE 400 MG TAB PO SCH ×2 (08:50→17:17)
[2017-06-14] MEDS: PRAVASTATIN SODIUM 40 MG TAB PO SCH (08:50)
[2017-06-14] MEDS: SODIUM CHLORIDE 0.9% 1,000 ML IV SCH ×3 (08:51→16:56)
--- NOTE | 2017-06-14 10:48 | XR ---
Right ankle HISTORY: Pain 2 views of the right ankle No comparisons Bone mineralization is reduced which may limit sensitivity. There is overlying artifact. Postop peterson es are noted posterior Achilles insertion, calcaneus. Ossific densities are present at the level of t he Achilles insertion, there may be heterotopic new bone formation, calcific tendinitis. There is a p lantar calcaneal spur with some associated calcification. No evident joint effusion. Vascular calcifi cations are noted incidentally. Spurring is present at the tibiotalar joint, intertarsal joints. Alig nment is maintained, mild joint space loss. IMPRESSION: No acute fracture or dislocation. Proximal fifth metatarsal is not well seen on the front al view. Exam is limited.
[2017-06-14] MEDS ORDERED: ceFAZolin IN SWFI 2 GM/20 ML SYRINGE IVP ONE (11:30)
[2017-06-14] MEDS ORDERED: IV FLUID CONTINUATION 900 ML IV ONE (11:48)
[2017-06-14] MEDS ORDERED: SODIUM CHLORIDE 0.9% 100 ML BAG ONE (12:56)
[2017-06-14] MEDS ORDERED: ceFAZolin 1,000 MG VIAL ONE (12:56)
[2017-06-14] MEDS ORDERED: fentaNYL (PF) 50 MCG/ML 2 ML AMP ONE (12:56)
[2017-06-14] MEDS ORDERED: MIDAZOLAM 2 MG/2 ML VIAL ONE (12:56)
[2017-06-14] MEDS ORDERED: KETAMINE 10 MG/ML 20 ML VIAL ONE (12:56)
[2017-06-14] MEDS ORDERED: HYDROmorphone (PF) 1 MG/ML ONE (12:56)
[2017-06-14] MEDS ORDERED: PROPOFOL 10 MG/ML 20 ML VIAL IV ONE (12:56)
[2017-06-14] MEDS ORDERED: PHENYLEPHRINE-0.9% NACL SYG 1 MG/10 ML SYRINGE ONE (12:56)
[2017-06-14] MEDS ORDERED: LACTATED RINGERS 1,000 ML IV ONE (13:36)
--- NOTE | 2017-06-14 15:00 | P.OP ---
Date of Procedure: 06/14/17 Preoperative Diagnosis: Periprosthetic distal femur fracture right Postoperative Diagnosis: Periprosthetic distal femur fracture right Procedure(s) Performed: Open reduction and internal fixation of the periprosthetic distal femur fracture right Implants: Vera and Nephew distal femur periarticular plate, 6-hole Locking and non- locking screws Anesthesia: spinal Surgeon: Surjit Mann Perfume Maker #1: Lorie Purcell Estimated Blood Loss (ml): 100 Pathology: none sent Condition: stable Disposition: PACU Indications for Procedure: This is a 72-year-old female who fell and landed onto her right leg. She's had a prior right total knee arthroplasty performed and is a minimal ambulator. She sustained a periprosthetic distal femur fracture of her right femur just proximal to her knee replacement. Due to the displacement of the fracture, I recommended open reduction and internal fixation informed consent was obtained. Operative Findings: The operative findings are consistent with a periprosthetic distal femur fracture of the right leg. Description of Procedure: The patient was seen in the preoperative area, consent was reviewed and the operative site was marked with a skin marker. Patient was then brought to the operating room and given a spinal anesthetic by the anesthesia department. 2 g of Ancef were given intravenously. Patient was then placed supine on the operating room table, and the right lower extremities and prepped and draped in usual sterile fashion. A universal timeout was then performed which confirmed the patient's name, surgical site, ALLERGIES, and consent. The procedure began by making a lateral incision over the lateral condyle of the right knee. The fracture was then reduced and the appropriate length plate was then placed percutaneously on the lateral aspect of the femur. Screws were then placed provisionally both proximally and distally in order to hold the plate. Fluoroscopic x-rays confirmed reduction of the fracture locking and nonlocking screws were then placed both proximally and distally which afforded excellent fixation of the fracture. The proximal screws were placed through small stab incisions through the skin. After all the screws been placed, final x-rays were obtained which show the fracture reduced in good position alignment as well as good position of the plate and screws. Wound was then irrigated and closed with 0 Vicryl followed by 2-0 Vicryl and estrella for the skin. Sterile dressing was applied and patient was transferred recovery room in stable condition. The assistant professor of biochemistry NAVA Su was required due the complexity of surgery and the need for skilled surgical specialist.
--- NOTE | 2017-06-14 15:30 | XR ---
Open reduction internal fixation HISTORY: Fracture 2 minutes 17 seconds fluoroscopy time. 2 intraoperative C-arm images document the procedure. See repo rt from orthopedic surgery.
--- NOTE | 2017-06-14 15:54 | FL ---
Fluoroscopy HISTORY: Open reduction internal fixation 2 minutes 17 seconds fluoroscopy time supplied to the referring clinician. 2 intraoperative C-arm im ages document the procedure. See dictated report from orthopedic surgery.
[2017-06-14] MEDS: POTASSIUM CHLORIDE ER 20 MEQ TAB.ER PO SCH (17:17)
[2017-06-14] MEDS: HYDROcodone/APAP 5-325MG 1 EACH TAB PO PRN ×2 (18:04→21:36)
--- NOTE | 2017-06-14 19:51 | P.PN ---
Progress Note - Text Progress Note Date: 06/14/17 DATE OF SERVICE: 06/14/2017 PRESENTING COMPLAINT: Status post fall HISTORY OF PRESENT ILLNESS: 72-year-old female who uses a cane and fell near the door after she lost her balance was a mechanical fall. No chest pain or palpitations no passing out. As result patient has sustained a C6 transverse process fracture on the left side and a right distal femur fracture. Status post open reduction internal fixation of the periprosthetic distal femur fracture right INTERVAL HISTORY: Lying in bed, wearing a soft c-collar. Remains nothing by mouth for surgery this morning. Afebrile, vitals are stable. Remains on bedrest last BM, prior to admission. 06/13/2017: Lying in bed she is wearing a hard neck brace once it switched out. It's causing her tremendous amount of pain. No acute overnight events, afebrile, blood pressure and vital signs stable. Neck and right leg causing the patient fair amount of pain pain medications on board and do a pretty good job keeping the pain under control. Tolerating her diet, currently remains on bedrest and last BM prior to admission. REVIEW OF SYSTEMS: Done for constitutional ,cardiovascular, GI, pulmonary with relevant findings as above. CURRENT MEDICATIONS Tylenol, Etters, Catapres, Cardizem, Benadryl, Lasix, heparin, lisinopril, Cozaar , Namenda, mag oxide, morphine sulfate, Narcan, Zofran, Protonix, potassium chloride, Pravachol. PHYSICAL EXAM VITAL SIGNS: Temperature 99.0, pulse 83, respiratory rate 16, blood pressure 154/79, oxygen saturation 96% on room air. GENERAL APPEARANCE: Lying in bed, not in distress. HEENT: Normocephalic, Pupils equal. Conjunctiva normal. JVD not raised. Mass not palpable.: RESPIRATORY: Respiratory effort normal. Lungs clear to auscultation. CARDIOVASCULAR: Irregular rhythm. No edema. ABDOMEN: Soft. Liver and spleen not palpable. No tenderness. No mass palpable. GENITOURINARY: Villa catheter in place PSYCHIATRY: Able to answer simple straightforward questions. Mood and affect normal. EXTREMITY, right lower extremity in a knee brace and cervical collar in place INVESTIGATIONS: Hemoglobin 10.6, chloride 110, BUN 19 ASSESSMENT: -Right distal femur fracture secondary to a fall, status post open reduction internal fixation of periprosthetic distal femur fracture -C6 transverse process fracture on the left side with cervical collar in place. -Morbid obesity BMI 40.7. -Persistent atrial fibrillation, patient is not a candidate for anticoagulation because of bleeding in the past. -Alzheimer's dementia with no psychoses. -Essential hypertension, controlled PLAN: Continue current medication treatment plan, will begin working with physical therapy tomorrow. Plan of care discussed the bedside we will continue to follow closely. DISTRIBUTION SUPERINTENDENT statement: Patient was seen and examined by nurse practitioner Moira Watson and all elements of the case discussed with attending Dr. Hancock
[2017-06-14] MEDS: ceFAZolin IN SWFI 2 GM/20 ML SYRINGE IVP SCH (21:33)
[2017-06-15] MEDS: SODIUM CHLORIDE 0.9% 1,000 ML IV SCH (04:11)
[2017-06-15] MEDS: ceFAZolin IN SWFI 2 GM/20 ML SYRINGE IVP SCH (04:11)
[2017-06-15] MEDS: HYDROcodone/APAP 5-325MG 1 EACH TAB PO PRN ×4 (04:15→19:26)
--- NOTE | 2017-06-15 05:12 | PN ---
PROGRESS NOTE DATE OF SERVICE: 06/14/2017. ATTENDING NOTE: Patient seen and examined by me. I discussed with my nurse practitioner, Ms. Watson. The patient is status post right femur surgery. Lying in bed, tired. ON EXAM: Lungs are clear CARDIOVASCULAR: First and second sounds normal. Dressing over the right femur. INVESTIGATIONS: No blood work from today. ASSESSMENT: 1. Status post right femur repair. 2. C6 transverse process fracture, left side with cervical collar in place. Continue current medication and treatment plan. Will follow. MMODL / IJN: [id number] /
[2017-06-15] MEDS: hydrOXYzine PAMOATE 25 MG CAP PO PRN ×2 (07:40→19:27)
[2017-06-15] MEDS: DILTIAZEM ORAL 30 MG TAB PO SCH ×2 (07:41→19:27)
[2017-06-15] MEDS: FUROSEMIDE 40 MG TAB PO SCH (07:42)
[2017-06-15] MEDS: LOSARTAN 50 MG TAB PO SCH (07:42)
[2017-06-15] MEDS: MAGNESIUM OXIDE 400 MG TAB PO SCH ×2 (07:42→19:27)
[2017-06-15] MEDS: MEMANTINE 5 MG TAB PO SCH ×2 (07:43→19:28)
[2017-06-15] MEDS: LISINOPRIL 10 MG TAB PO SCH (07:43)
[2017-06-15] MEDS: PANTOPRAZOLE 40 MG TABLET PO SCH (07:43)
[2017-06-15] MEDS: cloNIDine HCL 0.1 MG TAB PO SCH ×3 (07:43→20:27)
--- NOTE | 2017-06-15 09:35 | P.PN ---
Subjective Progress Note Date: 06/15/17 This is a 72-year-old female admitted for right distal femur fracture and fracture of C6 transverse process. Patient is status post ORIF right distal femur. This is postoperative day #1. Patient is seen and evaluated at bedside today. Patient does report pain to the right lower extremity as expected after surgery. Patient states that her cervical collar is very uncomfortable. Patient denies any other complaints today. Objective - Vital Signs Vital signs: Vital Signs Temp 99 F 06/15/17 01:17 Pulse 72 06/15/17 01:17 Resp 16 06/15/17 01:17 BP 167/87 06/15/17 01:17 Pulse Ox 100 06/15/17 01:17 Intake & Output 06/14/17 06/15/17 06/15/17 18:59 06:59 18:59 Intake Total 2000 800 180 Output Total 2700 1000 Balance -700 -200 180 Intake: IV 1700 Intake, IV Titration 300 300 Amount Sodium Chloride 0.9% 1, 300 300 000 ml @ 75 mls/hr IV . [id number] [facility] Rx#:[id number] Oral 500 180 Output: Urine 2600 1000 Estimated Blood Loss 100 Other: Voiding Method Indwelling Catheter Indwelling Catheter - Exam On exam patient is sitting up in bed and in no acute distress. Surgical dressing is removed. Incisions are clean, dry and intact. There is minimal drainage at this time. There is mild soft tissue swelling. Sensation intact to the right foot. Cervical collar in place. Neurovascular status and circulatory status intact. - Labs CBC & Chem 7: 06/13/17 06:59 06/13/17 06:59 Assessment and Plan (1) Fracture of distal end of right femur Current Visit: Yes Status: Acute Code(s): S72.401A - UNSP FRACTURE OF LOWER END OF RIGHT FEMUR, INIT FOR CLOS FX SNOMED Code(s): 486490734 (2) Hx of total knee arthroplasty Current Visit: Yes Status: Acute Code(s): Z96.659 - PRESENCE OF UNSPECIFIED ARTIFICIAL KNEE JOINT SNOMED Code(s): 3197879445195 (3) Cervical transverse process fracture Current Visit: Yes Status: Acute Code(s): S12.9XXA - FRACTURE OF NECK, UNSPECIFIED, INITIAL ENCOUNTER SNOMED Code(s): 037380381 (4) Fall Current Visit: Yes Status: Acute Code(s): W19.XXXA - UNSPECIFIED FALL, INITIAL ENCOUNTER SNOMED Code(s): 7918471 Plan: #1. Nonweightbearing to the right lower extremity. #2. Maintain cervical collar at all times. Working on getting a different kind of cervical collar or a different size. #3. Daily dressing changes to right lower extremity. Rest, ice and elevate the right lower extremity. #4. Continue pain control. #5. We'll continue to follow the patient closely.
[2017-06-15] MEDS: INSULIN ASPART 100 UNIT/ML 1 ML 10 ML VIAL SQ SCH ×3 (12:00→20:26)
[2017-06-15 12:03] LABS: Glucose,Whole Blood 134 mg/dL (75-99)
[2017-06-15] MEDS: ENOXAPARIN 40 MG/0.4 ML SYRINGE SQ SCH ×2 (14:26→20:26)
--- NOTE | 2017-06-15 16:26 | P.CNOR ---
History of Present Illness - [facility] Consult date: 06/15/17 Requesting physician: Lorie Purcell Consult reason: fracture (Left C6 transverse process fracture) History of present illness: Patient is a very pleasant 72-year-old female who is seen and examined at the bedside after we were consulted for further evaluation in regards to her cervical spine. Patient had recently fallen and sustained a right distal femur fracture as well as a cervical fracture at C6. She has been seen and examined by Dr. Surjit Mann and Lorie Purcell PA-C. She subsequently underwent an open reduction and internal fixation of the right periprosthetic distal femur fracture. She is planning to go to rehabilitation following discharge. This was postponed today due to waiting for an authorization number. She is planning go to rehabilitation tomorrow. Since her fall, she has been placed in a hard cervical collar due to her C6 fracture. She's had significant difficulty with this brace as it is uncomfortable for her and rides up on the front of her face. She states she has some stiffness in her cervical spine but has not experienced significant pain. She denies any upper extremity weakness and radiculopathy bilaterally. She has active full range of motion of the upper extremities without difficulty. She has no significant complaints in regards to her upper extremities or cervical spine other than the difficulty with wearing the hard cervical collar. Past Medical History Past Medical History: Atrial Fibrillation, Dementia, Hypertension, Memory Impairment History of Any Multi-Drug Resistant Organisms: None Reported Past Surgical History: Hysterectomy, Joint Replacement, Tonsillectomy Additional Past Surgical History / Comment(s): rt knee replacement; gastric bypass Past Anesthesia/Blood Transfusion Reactions: No Reported Reaction Past Psychological History: No Psychological Hx Reported Smoking Status: Never smoker Past Alcohol Use History: None Reported Past Drug Use History: None Reported - Past Family History Father History Unknown: Yes Medications and Allergies Home Medications Medication Instructions Recorded Confirmed Type Magnesium Oxide [Mag-Ox] 250 mg PO BID@0800,1800 08/18/15 06/11/17 History Potassium Chloride [Klor-Con 20] 20 meq PO HS@1800 08/18/15 06/11/17 History Pravastatin Sodium [Pravachol] 40 mg PO Q48H 08/18/15 06/11/17 History Diltiazem Oral [Cardizem Oral] 30 mg PO BID@0800,1800 06/11/17 06/11/17 History Furosemide [Lasix] 40 mg PO DAILY@0800 06/11/17 06/11/17 History Irbesartan [Avapro] 300 mg PO DAILY@0800 06/11/17 06/11/17 History Lisinopril [Prinivil] 10 mg PO DAILY 06/11/17 06/11/17 History Memantine HCl [Namenda Xr] 14 mg PO DAILY@0800 06/11/17 06/11/17 History Pantoprazole Sodium [Protonix] 20 mg PO DAILY@0800 06/11/17 06/11/17 History cloNIDine HCL [Catapres] 0.4 mg PO BID@0800,1800 06/11/17 06/11/17 History Allergies Allergy/AdvReac Type Severity Reaction Status Date / Time No Known Allergies Allergy Verified 06/11/17 19:54 Physical Examination Physical exam: Patient is awake, alert, and oriented 3 Vital signs stable Good chest excursion with deep inspiration and expiration Abdomen soft nontender Examination of the cervical spine reveals skin is intact with no abrasions, lacerations, or bruises; no erythema, purulence or signs of infection No significant pain with palpation of the cervical spine Stiff but adequate range of motion of the cervical spine including flexion, extension, and bilateral rotation Production Estimator strength, thumb strength, interosseous strength, biceps strength, triceps strength, and shoulder strength positive sustained bilaterally No upper extremity hyperreflexia bilaterally Hoffmans sign negative upper extremity bilaterally Results Pertinent studies: CT of the head and cervical spine: C6 complete minimally displaced fracture of the posterior transverse process on the left; no evidence of acute intracranial hemorrhage, mass effect, or midline shift is seen; Mutlilevel cervical degenerative disc disease with multiple levels demonstrating spurring and facet hypertrophy - Labs Labs: Abnormal Lab Results - Last 24 Hours (Table) 06/15/17 Range/Units 11:58 POC Glucose (mg/dL) 134 H (75-99) mg/dL H & H 06/11/17 06/13/17 Range/Units 20:24 06:59 Hgb 11.9 10.6 L (11.4-16.0) gm/dL Hct 38.0 35.1 (34.0-46.0) % Coagulation 06/11/17 Range/Units 20:24 INR 1.0 (<1.2) Result Diagrams: 06/13/17 06:59 06/13/17 06:59 Assessment and Plan Assessment: Assessment: C6 left transverse process fracture Cervical degenerative disc disease and facet arthropathy Status post fall Status post open reduction and internal fixation of the right periprosthetic distal femur fracture (1) Degenerative disc disease, cervical Current Visit: Yes Status: Acute Code(s): M50.30 - OTHER CERVICAL DISC DEGENERATION, UNSP CERVICAL REGION SNOMED Code(s): 39475208 (2) Facet arthropathy, cervical Current Visit: Yes Status: Acute Code(s): M46.92 - UNSPECIFIED INFLAMMATORY SPONDYLOPATHY, CERVICAL REGION SNOMED Code(s): 163943469 (3) Cervical transverse process fracture Current Visit: Yes Status: Acute Code(s): S12.9XXA - FRACTURE OF NECK, UNSPECIFIED, INITIAL ENCOUNTER SNOMED Code(s): 115829144 (4) Fall Current Visit: Yes Status: Acute Code(s): W19.XXXA - UNSPECIFIED FALL, INITIAL ENCOUNTER SNOMED Code(s): 5335443 (5) Fracture of distal end of right femur Current Visit: Yes Status: Acute Code(s): S72.401A - UNSP FRACTURE OF LOWER END OF RIGHT FEMUR, INIT FOR CLOS FX SNOMED Code(s): 793487093 Plan: Plan: 1. Patient has been discussed in detail and imaging has been reviewed with Dr. Vahe Mazariegos. We'll plan to continue conservative treatment at this time in regards to her left C6 transverse process fracture and cervical degenerative changes. We will plan to discontinue her hard cervical collar and transition her into a soft cervical collar. She should continue to wear this soft cervical colar for comfort and support at all times, except while bathing. We will plan have her follow-up in the outpatient setting in approximately 2-3 weeks for further evaluation. She may continue to participate in light activities to tolerance with her brace is intact in regards to her cervical spine and upper extremities. She should continue with activities for her right lower extremity as instructed by Dr. Surjit Mann and Lorie Purcell PA-C. At this time, patient is clear for discharge from orthopedic spine standpoint. 2. Medicine to continue following the patient closely 3. Following discharge, patient may follow-up with Jesus Crowe or Dr. Vahe Mazariegos at [facility] in approximately 2-3 weeks for further evaluation 4. Patient has been discussed in detail with Dr. Vahe Mazariegos and he agrees with this plan. Time with Patient: Less than 30
[2017-06-15 16:57] LABS: Glucose,Whole Blood 139 mg/dL (75-99)
--- NOTE | 2017-06-15 17:42 | P.PN ---
Progress Note - Text Progress Note Date: 06/15/17 DATE OF SERVICE: 06/15/2017 PRESENTING COMPLAINT: Status post fall HISTORY OF PRESENT ILLNESS: 72-year-old female who uses a cane and fell near the door after she lost her balance was a mechanical fall. No chest pain or palpitations no passing out. As result patient has sustained a C6 transverse process fracture on the left side and a right distal femur fracture. Status post open reduction internal fixation of the periprosthetic distal femur fracture right INTERVAL HISTORY: 06/15/2017: Lying in bed, hard c-collar on appears uncomfortable. Right knee pain is well controlled, afebrile, vital signs stable, no acute overnight events. Status post ORIF of periprosthetic distal femur fracture on the right. Patient remains nonweightbearing to the right lower extremity, agreeable to work with physical therapy. seen by orthospine ordered C6 fracture. 06/14/2017: Lying in bed, wearing a soft c-collar. Remains nothing by mouth for surgery this morning. Afebrile, vitals are stable. Remains on bedrest last BM, prior to admission. 06/13/2017: Lying in bed she is wearing a hard neck brace once it switched out. It's causing her tremendous amount of pain. No acute overnight events, afebrile, blood pressure and vital signs stable. Neck and right leg causing the patient fair amount of pain pain medications on board and do a pretty good job keeping the pain under control. Tolerating her diet, currently remains on bedrest and last BM prior to admission. REVIEW OF SYSTEMS: Done for constitutional ,cardiovascular, GI, pulmonary with relevant findings as above. CURRENT MEDICATIONS Tylenol, [place], Catapres, Cardizem, Benadryl, Lasix, Lovenox Vistaril lisinopril , Cozaar, Namenda, mag oxide, morphine sulfate, Narcan, Zofran, Protonix, potassium chloride, Pravachol. PHYSICAL EXAM VITAL SIGNS: Temperature 98.1, pulse 87, respiratory rate 17, blood pressure 181/68, oxygen saturation 97% on room air GENERAL APPEARANCE: Lying in bed, appears somewhat uncomfortable. HENT: Normocephalic, oral cavity normal, external appearance of ears/nose normal. NECK: C-collar in place ill fitting EYES:Pupils equal. Conjunctiva normal. RESPIRATORY: Respiratory effort normal. Lungs clear to auscultation. CARDIOVASCULAR: Irregular rhythm. No edema. ABDOMEN: Soft. Liver and spleen not palpable. No tenderness. No mass palpable. GENITOURINARY: Villa catheter in place PSYCHIATRY: Able to answer simple straightforward questions. Mood and affect normal. EXTREMITY, right lower extremity in a knee brace and cervical collar in place INVESTIGATIONS: None new ASSESSMENT: -Right distal femur fracture secondary to a fall, status post open reduction internal fixation of periprosthetic distal femur fracture -C6 transverse process fracture on the left side with cervical collar in place. -Morbid obesity BMI 40.7. -Persistent atrial fibrillation, patient is not a candidate for anticoagulation because of bleeding in the past. -Alzheimer's dementia with no psychoses. -Essential hypertension, controlled PLAN: Continue current medication treatment plan, will continue working with physical therapy tomorrow. Plan of care discussed the bedside we will continue to follow closely. [employer] statement: Patient was seen and examined by nurse practitioner Moira Watson and all elements of the case discussed with attending Dr. Hancock
[2017-06-15 18:45] LABS: Hemoglobin A1C 6.3 % (4.0-6.0)
--- NOTE | 2017-06-15 19:40 | PN ---
PROGRESS NOTE DATE OF SERVICE: 06/15/2017 ATTENDING NOTE: This patient was seen and examined by me. I discussed the case with the nurse practitioner Ms. Watson. The patient is sitting up in a chair, awake. Hard C-collar is in place. Lungs are clear. CARDIOVASCULAR: First and second sounds normal. Answering questions. Accu-Cheks are noted. ASSESSMENT: 1. Right distal femur fracture, status post open reduction internal fixation. 2. C6 transverse process, left side, with cervical collar in place. PLAN: Continue current medication and treatment plan. Patient will work with physical therapy. Patient is tolerating a diet. Will discontinue the IV fluids. MMODL / IJN: [id number] /
[2017-06-15 20:23] LABS: Glucose,Whole Blood 138 mg/dL (75-99)
[2017-06-15] MEDS: POTASSIUM CHLORIDE ER 20 MEQ TAB.ER PO SCH (20:27)
[2017-06-16] MEDS: hydrOXYzine PAMOATE 25 MG CAP PO PRN ×3 (03:34→17:40)
[2017-06-16] MEDS: HYDROcodone/APAP 5-325MG 1 EACH TAB PO PRN ×5 (03:34→20:56)
[2017-06-16 06:44] LABS: Basophils % (A) 0 %; Eosinophils # (A) 0.1 k/uL (0-0.7); Eosinophils % (A) 1 %; Hypochromasia Moderate; Lymphocytes # (A) 1.3 k/uL (1.0-4.8); Lymphocytes % (A) 18 %; MCH 25.3 pg (25.0-35.0); MCHC 30.2 g/dL (31.0-37.0); MCV 83.8 fL (80.0-100.0); Mean Platelet Volume 7.7; Monocytes # (A) 0.7 k/uL (0-1.0); Monocytes % (A) 9 %; Neutrophils % (A) 68 %; Platelet Count 202 k/uL (150-450); RBC 3.34 m/uL (3.80-5.40); RDW 15.4 % (11.5-15.5); WBC 7.3 k/uL (3.8-10.6)
[2017-06-16 06:49] LABS: Glucose,Whole Blood 114 mg/dL (75-99)
[2017-06-16 06:49] LABS: HGB 8.5 gm/dL (11.4-16.0)
[2017-06-16 06:51] LABS: Anion Gap 7 mmol/L; Blood Urea Nitrogen 16 mg/dL (7-17); Calcium 9.5 mg/dL (8.4-10.2); Carbon Dioxide 22 mmol/L (22-30); Chloride 109 mmol/L (98-107); Glucose 110 mg/dL (74-99); Potassium 4.2 mmol/L (3.5-5.1); Sodium 138 mmol/L (137-145)
[2017-06-16] MEDS: INSULIN ASPART 100 UNIT/ML 1 ML 10 ML VIAL SQ SCH ×4 (07:49→20:55)
[2017-06-16] MEDS: LISINOPRIL 10 MG TAB PO SCH (07:50)
[2017-06-16] MEDS: MAGNESIUM OXIDE 400 MG TAB PO SCH ×2 (07:50→17:41)
[2017-06-16] MEDS: LOSARTAN 50 MG TAB PO SCH (07:51)
[2017-06-16] MEDS: FUROSEMIDE 40 MG TAB PO SCH (07:51)
[2017-06-16] MEDS: MEMANTINE 5 MG TAB PO SCH ×2 (07:51→17:41)
[2017-06-16] MEDS: cloNIDine HCL 0.1 MG TAB PO SCH ×3 (07:51→20:55)
[2017-06-16] MEDS: ENOXAPARIN 40 MG/0.4 ML SYRINGE SQ SCH ×2 (07:51→20:55)
[2017-06-16] MEDS: PANTOPRAZOLE 40 MG TABLET PO SCH (07:51)
[2017-06-16] MEDS: DILTIAZEM ORAL 30 MG TAB PO SCH ×2 (07:51→17:41)
--- NOTE | 2017-06-16 09:01 | P.PN ---
Subjective Progress Note Date: 06/16/17 This is a 72-year-old female admitted for right distal femur fracture and fracture of C6 transverse process. Patient is status post ORIF right distal femur. This is postoperative day #2. Patient is seen and evaluated at bedside today. Patient states her pain is better controlled today. Patient denies any new complaints today. Objective - Vital Signs Vital signs: Vital Signs Temp 97.5 F L 06/16/17 07:00 Pulse 100 06/16/17 07:00 Resp 16 06/16/17 07:00 BP 105/56 06/16/17 08:54 Pulse Ox 96 06/16/17 07:00 Intake & Output 06/15/17 06/16/17 06/16/17 18:59 06:59 18:59 Intake Total 537 1412.5 120 Output Total 1000 500 600 Balance -463 912.5 -480 Intake: Intake, IV Titration 862.5 Amount Sodium Chloride 0.9% 1, 862.5 000 ml @ 75 mls/hr IV . [id number] [facility] Rx#:[id number] Oral 537 550 120 Output: Urine 1000 500 600 Other: Voiding Method Indwelling Catheter Indwelling Catheter Indwelling Catheter - Exam On exam patient is sitting up in bed and in no acute distress. Incisions are clean, dry and intact. There is no drainage at this time. There is mild soft tissue swelling. Sensation intact to the right foot. Calf is soft and nontender to palpation. Neurovascular status and circulatory status intact. - Labs CBC & Chem 7: 06/16/17 06:15 06/16/17 06:15 Labs: Abnormal Lab Results - Last 24 Hours (Table) 06/13/17 06/15/17 06/15/17 Range/Units 06:59 11:58 16:53 RBC (3.80-5.40) m/uL Hgb (11.4-16.0) gm/dL Hct (34.0-46.0) % MCHC (31.0-37.0) g/dL Chloride (98-107) mmol/L Glucose (74-99) mg/dL POC Glucose (mg/dL) 134 H 139 H (75-99) mg/dL Hemoglobin A1c 6.3 H (4.0-6.0) % 06/15/17 06/16/17 06/16/17 Range/Units 20:21 06:15 06:15 RBC 3.34 L (3.80-5.40) m/uL Hgb 8.5 L D (11.4-16.0) gm/dL Hct 28.0 L (34.0-46.0) % MCHC 30.2 L (31.0-37.0) g/dL Chloride 109 H (98-107) mmol/L Glucose 110 H (74-99) mg/dL POC Glucose (mg/dL) 138 H (75-99) mg/dL Hemoglobin A1c (4.0-6.0) % 06/16/17 Range/Units 06:47 RBC (3.80-5.40) m/uL Hgb (11.4-16.0) gm/dL Hct (34.0-46.0) % MCHC (31.0-37.0) g/dL Chloride (98-107) mmol/L Glucose (74-99) mg/dL POC Glucose (mg/dL) 114 H (75-99) mg/dL Hemoglobin A1c (4.0-6.0) % Assessment and Plan (1) Fracture of distal end of right femur Current Visit: Yes Status: Acute Code(s): S72.401A - UNSP FRACTURE OF LOWER END OF RIGHT FEMUR, INIT FOR CLOS FX SNOMED Code(s): 733306626 (2) Hx of total knee arthroplasty Current Visit: Yes Status: Acute Code(s): Z96.659 - PRESENCE OF UNSPECIFIED ARTIFICIAL KNEE JOINT SNOMED Code(s): 6035600298869 (3) Cervical transverse process fracture Current Visit: Yes Status: Acute Code(s): S12.9XXA - FRACTURE OF NECK, UNSPECIFIED, INITIAL ENCOUNTER SNOMED Code(s): 244817080 (4) Fall Current Visit: Yes Status: Acute Code(s): W19.XXXA - UNSPECIFIED FALL, INITIAL ENCOUNTER SNOMED Code(s): 6207458 Plan: #1. Nonweightbearing to the right lower extremity. #2. Maintain soft collar #3. Daily dressing changes to right lower extremity. Rest, ice and elevate the right lower extremity. #4. Continue pain control. #5. We'll continue to follow the patient closely.
[2017-06-16 11:23] LABS: Glucose,Whole Blood 121 mg/dL (75-99)
[2017-06-16] MEDS: PRAVASTATIN SODIUM 40 MG TAB PO SCH (12:34)
[2017-06-16] MEDS: SENNOSIDES 8.6 MG TAB PO SCH ×2 (12:34→20:55)
[2017-06-16 16:54] LABS: Glucose,Whole Blood 110 mg/dL (75-99)
[2017-06-16] MEDS: POTASSIUM CHLORIDE ER 20 MEQ TAB.ER PO SCH (17:41)
--- NOTE | 2017-06-16 19:46 | P.PN ---
Progress Note - Text Progress Note Date: 06/16/17 DATE OF SERVICE: 06/16/2017 PRESENTING COMPLAINT: Status post fall HISTORY OF PRESENT ILLNESS: 72-year-old female who uses a cane and fell near the door after she lost her balance was a mechanical fall. No chest pain or palpitations no passing out. As result patient has sustained a C6 transverse process fracture on the left side and a right distal femur fracture. Status post open reduction internal fixation of the periprosthetic distal femur fracture right INTERVAL HISTORY: 06/16/2017: Lying in bed, soft c-collar on appears comfortable. Right knee pain is controlled however is tender when touched. No acute overnight events, afebrile vital signs stable. Doesn't really want to participate in physical therapy, requires convincing. Tolerating her diet eating about 50% of her meals, last BM prior to admission. 06/15/2017: Lying in bed, hard c-collar on appears uncomfortable. Right knee pain is well controlled, afebrile, vital signs stable, no acute overnight events. Status post ORIF of periprosthetic distal femur fracture on the right. Patient remains nonweightbearing to the right lower extremity, agreeable to work with physical therapy. seen by orthospine ordered C6 fracture. 06/14/2017: Lying in bed, wearing a soft c-collar. Remains nothing by mouth for surgery this morning. Afebrile, vitals are stable. Remains on bedrest last BM, prior to admission. 06/13/2017: Lying in bed she is wearing a hard neck brace once it switched out. It's causing her tremendous amount of pain. No acute overnight events, afebrile, blood pressure and vital signs stable. Neck and right leg causing the patient fair amount of pain pain medications on board and do a pretty good job keeping the pain under control. Tolerating her diet, currently remains on bedrest and last BM prior to admission. REVIEW OF SYSTEMS: Done for constitutional ,cardiovascular, GI, pulmonary with relevant findings as above. CURRENT MEDICATIONS Tylenol, [place], Catapres, Cardizem, Benadryl, Lasix, Lovenox Vistaril lisinopril , Cozaar, Namenda, mag oxide, morphine sulfate, Narcan, Zofran, Protonix, potassium chloride, Pravachol. PHYSICAL EXAM VITAL SIGNS: Temperature 97.5, pulse 100, respiratory rate 16, blood pressure 174/76, oxygen saturation 96% on room air. GENERAL APPEARANCE: Lying in bed, appears comfortable. HENT: Normocephalic, oral cavity normal, external appearance of ears/nose normal. NECK: Soft C-collar in place EYES:Pupils equal. Conjunctiva normal. RESPIRATORY: Respiratory effort normal. Lungs clear to auscultation. CARDIOVASCULAR: Irregular rhythm. No edema. ABDOMEN: Soft. Liver and spleen not palpable. No tenderness. No mass palpable. GENITOURINARY: Villa catheter in place PSYCHIATRY: Able to answer simple straightforward questions. Mood and affect normal. EXTREMITY, right lower extremity in a knee brace and soft cervical collar in place INVESTIGATIONS: LABS: Hemoglobin 8.5, chloride 109, Accu-Cheks noted. ASSESSMENT: -Right distal femur fracture secondary to a fall, status post open reduction internal fixation of periprosthetic distal femur fracture -C6 transverse process fracture on the left side with cervical collar in place. -Morbid obesity BMI 40.7. -Persistent atrial fibrillation, patient is not a candidate for anticoagulation because of bleeding in the past. -Alzheimer's dementia with no psychoses. -Essential hypertension, controlled PLAN: Continue current medication treatment plan, will continue working with physical therapy tomorrow. Discharge planning to [facility] pending insurance authorization. Plan of care discussed the bedside we will continue to follow closely. [employer]PRENTICE statement: Patient was seen and examined by nurse practitioner Moira Watson and all elements of the case discussed with attending Dr. Hancock
[2017-06-16 20:22] LABS: Glucose,Whole Blood 155 mg/dL (75-99)
--- NOTE | 2017-06-16 23:29 | PN ---
PROGRESS NOTE DATE OF SERVICE: 06/16/2017. ATTENDING NOTE: This patient was seen and examined by me. I discussed the case with the nurse practitioner Ms. Watson. Patient is sitting in bed, comfortable, tolerating a diet. Pain is controlled. On examination, afebrile. Blood pressure 143/75. Lungs are clear. CARDIOVASCULAR: First and second sounds normal. Neck collar in place. Answering simple questions. Hemoglobin 8.5. ASSESSMENT: 1. Status post right femur repair. 2. Acute blood loss anemia as expected from surgery. PLAN: Continue current medication and treatment plan. Awaiting inpatient rehab placement. MMODL / IJN: [id number] /
[2017-06-17 01:55] VITALS: RESP 16
[2017-06-17] MEDS: hydrOXYzine PAMOATE 25 MG CAP PO PRN (02:28)
[2017-06-17] MEDS: HYDROcodone/APAP 5-325MG 1 EACH TAB PO PRN ×3 (02:28→12:51)
[2017-06-17 07:09] LABS: Glucose,Whole Blood 135 mg/dL (75-99)
[2017-06-17] MEDS: MEMANTINE 5 MG TAB PO SCH (07:51)
[2017-06-17] MEDS: PANTOPRAZOLE 40 MG TABLET PO SCH (07:51)
[2017-06-17] MEDS: ENOXAPARIN 40 MG/0.4 ML SYRINGE SQ SCH (07:51)
[2017-06-17] MEDS: LOSARTAN 50 MG TAB PO SCH (07:51)
[2017-06-17] MEDS: DILTIAZEM ORAL 30 MG TAB PO SCH (07:52)
[2017-06-17] MEDS: MAGNESIUM OXIDE 400 MG TAB PO SCH (07:52)
[2017-06-17] MEDS: FUROSEMIDE 40 MG TAB PO SCH (07:52)
[2017-06-17] MEDS: LISINOPRIL 10 MG TAB PO SCH (07:52)
[2017-06-17] MEDS: cloNIDine HCL 0.1 MG TAB PO SCH (07:53)
[2017-06-17] MEDS: SENNOSIDES 8.6 MG TAB PO SCH (07:53)
[2017-06-17] MEDS: INSULIN ASPART 100 UNIT/ML 1 ML 10 ML VIAL SQ SCH ×2 (07:56→12:57)
--- NOTE | 2017-06-17 08:22 | P.PN ---
Subjective Progress Note Date: 06/17/17 This is a 72-year-old female admitted for right distal femur fracture and fracture of C6 transverse process. Patient is status post ORIF right distal femur. This is postoperative day #3. Patient is seen and evaluated at bedside today. Patient states her pain is controlled today. Patient states she was tolerating a soft collar well. Patient denies any new complaints today. Objective - Vital Signs Vital signs: Vital Signs Temp 99.0 F 06/17/17 07:49 Pulse 93 06/17/17 07:49 Resp 16 06/17/17 07:49 BP 165/88 06/17/17 07:49 Pulse Ox 96 06/17/17 07:49 Intake & Output 06/16/17 06/17/17 06/17/17 18:59 06:59 18:59 Intake Total 360 300 0 Output Total 2200 700 Balance -1840 -400 0 Intake: Oral 360 300 0 Output: Urine 2200 700 Other: Voiding Method Indwelling Catheter Indwelling Catheter - Exam On exam patient is sitting up in bed and in no acute distress. Incisions are clean, dry and intact. There is no drainage at this time. There is mild soft tissue swelling. Sensation intact to the right foot. Calves are soft and nontender to palpation. Neurovascular status and circulatory status intact. - Labs CBC & Chem 7: 06/16/17 06:15 06/16/17 06:15 Labs: Abnormal Lab Results - Last 24 Hours (Table) 06/16/17 06/16/17 06/16/17 Range/Units 11:05 16:44 20:21 POC Glucose (mg/dL) 121 H 110 H 155 H (75-99) mg/dL 06/17/17 Range/Units 06:58 POC Glucose (mg/dL) 135 H (75-99) mg/dL Assessment and Plan (1) Fracture of distal end of right femur Current Visit: Yes Status: Acute Code(s): S72.401A - UNSP FRACTURE OF LOWER END OF RIGHT FEMUR, INIT FOR CLOS FX SNOMED Code(s): 375709788 (2) Hx of total knee arthroplasty Current Visit: Yes Status: Acute Code(s): Z96.659 - PRESENCE OF UNSPECIFIED ARTIFICIAL KNEE JOINT SNOMED Code(s): 9565097159160 (3) Cervical transverse process fracture Current Visit: Yes Status: Acute Code(s): S12.9XXA - FRACTURE OF NECK, UNSPECIFIED, INITIAL ENCOUNTER SNOMED Code(s): 519756001 (4) Fall Current Visit: Yes Status: Acute Code(s): W19.XXXA - UNSPECIFIED FALL, INITIAL ENCOUNTER SNOMED Code(s): 1574293 Plan: #1. Nonweightbearing to the right lower extremity. #2. Maintain soft collar. #3. Daily dressing changes to right lower extremity. Rest, ice and elevate the right lower extremity. #4. Continue pain control. #5. Waffle boots to bilateral lower extremities for pressure ulcer prevention as patient is refusing repositioning and not participating in physical therapy much. #5. We'll continue to follow the patient closely. Likely discharge to rehab in the near future.
[2017-06-17 09:52] LABS: Anisocytosis Slight; Basophils % (A) 0 %; Eosinophils % (A) 0 %; HCT 27.1 % (34.0-46.0); HGB 8.6 gm/dL (11.4-16.0); Hypochromasia Moderate; Lymphocytes # (A) 0.9 k/uL (1.0-4.8); Lymphocytes % (A) 12 %; MCH 25.7 pg (25.0-35.0); MCHC 31.8 g/dL (31.0-37.0); MCV 80.9 fL (80.0-100.0); Mean Platelet Volume 9.5; Monocytes # (A) 0.6 k/uL (0-1.0); Monocytes % (A) 9 %; Neutrophils # (A) 5.5 k/uL (1.3-7.7); Neutrophils % (A) 75 %; Platelet Count 225 k/uL (150-450); RBC 3.35 m/uL (3.80-5.40); RDW 16.4 % (11.5-15.5); WBC 7.3 k/uL (3.8-10.6)
[2017-06-17 10:17] LABS: Anion Gap 8 mmol/L; Blood Urea Nitrogen 20 mg/dL (7-17); Calcium 9.3 mg/dL (8.4-10.2); Carbon Dioxide 25 mmol/L (22-30); Chloride 106 mmol/L (98-107); Glucose 148 mg/dL (74-99); Potassium 4.7 mmol/L (3.5-5.1); Sodium 139 mmol/L (137-145)
[2017-06-17 11:03] LABS: Glucose,Whole Blood 142 mg/dL (75-99)
--- NOTE | 2017-06-17 13:03 | DS ---
DISCHARGE SUMMARY DATE OF ADMISSION: 06/11/2017 DATE OF DISCHARGE: 06/17/2017 FINAL DIAGNOSIS: 1. Right distal femur fracture secondary to fall, status post ORIF of periprosthetic distal femur fracture. 2. C6 transverse process fracture on the left side secondary to fall. 3. Morbid obesity, body mass index 40.7. 4. Persistent atrial fibrillation, not a candidate for anticoagulation. 5. Alzheimer's dementia, late onset with no psychosis. 6. Essential hypertension, controlled. 7. Acute blood-loss anemia as expected from surgery. CONSULTATION: 1. Dr. Mann from Orthopedics. 2. Dr. Rodriguez from General Surgery. HOSPITAL COURSE: This is a patient who took a fall at home with the above fractures, taken to the OR by Dr. Mann and above surgery was carried out. The patient has got a cervical collar in place. The patient is able answer simple question because of underlying dementia. PHYSICAL EXAMINATION: Temperature 99, pulse 93, respirations 16, blood pressure 165/88, before her blood pressure is 120/75. Lungs are clear. The patient is wearing a cervical collar. Hemoglobin is 8.6. OPERATIVE DESCRIPTION: The patient had open reduction, internal fixation of the periprosthetic distal right femur fracture. DISCHARGE MEDICATIONS: 1. Magnesium oxide 250 mg p.o. b.i.d. 2. Potassium 20 mEq p.o. q.h.s. 3. Pravachol 40 mg p.o. q.48 hours. 4. Cardizem will be changed to 30 mg p.o. t.i.d. 5. Lasix 40 mg p.o. daily. 6. Avapro 37 mg p.o. daily. 7. Prinivil 10 mg p.o. daily. 8. Namenda XR 14 mg p.o. daily. 9. Protonix 20 mg p.o. daily. 10.[place] 5 one tablet q.4 p.r.n. 11.Catapres 0.3 mg p.o. t.i.d. 12.Lovenox 40 mg subcu for 21 days. DISPOSITION: [facility]. Follow up with Dr. Ashby at [facility]. Follow up with Johnathan Chen 06/27/2017. Follow up with 07/04/2017. Orthopedic orders are coming in separately. MMODL / IJN: [id number] /
[2017-06-17 14:29] VITALS: BP 143/79; PULSE 100; TEMP 98.2
== END 2017-06-17 15:50 | DRG 481 ==
LOC: EC 19:39 → 3SUR 22:38
PROVIDERS: ADMIT Hospitalist; ATTEND Hospitalist
PROC: 0QSB04Z Reposition Right Lower Femur with Internal Fixation Device, Open Approach (ICD-10-PCS; principal; 2017-06-14 14:30)
DX: S72.401A Unspecified fracture of lower end of right femur, initial encounter for closed fracture (principal); S12.500A Unspecified displaced fracture of sixth cervical vertebra, initial encounter for closed fracture; I48.1 Persistent atrial fibrillation; E66.01 Morbid (severe) obesity due to excess calories; Z68.41 Body mass index [BMI] 40.0-44.9, adult; M97.11XA Periprosthetic fracture around internal prosthetic right knee joint, initial encounter; D62 Acute posthemorrhagic anemia; G30.1 Alzheimer's disease with late onset; F02.80 Dementia in other diseases classified elsewhere, unspecified severity, without behavioral disturbance, psychotic disturbance, mood disturbance, and anxiety; I10 Essential (primary) hypertension; M46.92 Unspecified inflammatory spondylopathy, cervical region; M50.30 Other cervical disc degeneration, unspecified cervical region; R53.81 Other malaise; Z79.899 Other long term (current) drug therapy; Z90.710 Acquired absence of both cervix and uterus; Z98.84 Bariatric surgery status; W01.0XXA Fall on same level from slipping, tripping and stumbling without subsequent striking against object, initial encounter; Y92.009 Unspecified place in unspecified non-institutional (private) residence as the place of occurrence of the external cause
CPT/HCPCS: 36415; 70450; 71045; 72125; 72170; 80048; 80053; 82550; 82553; 83036; 83735; 84484; 85025; 85610; 85730; 86850; 86870; 86880; 86900; 86901; 86902; 93005; 94760; 96361; 96374; 96376; 99285

== ENCOUNTER 2018-10-27 13:02 | Inpatient (IN) | payer MEDICARE, OTHER ==
[2018-10-27] MEDS ORDERED: FAMOTIDINE 20 MG/2 ML VIAL IV STA (13:29)
[2018-10-27] MEDS ORDERED: SODIUM CHLORIDE 0.9% 1,000 ML IV STA (13:29)
[2018-10-27] MEDS ORDERED: METOCLOPRAMIDE 5 MG/ML 2 ML VIAL IVP STA ×2 (13:29→20:02)
[2018-10-27] MEDS ORDERED: DILTIAZEM 5 MG/ML 5 ML VIAL IVP STA ×2 (13:29→16:04)
--- NOTE | 2018-10-27 13:32 | ED ---
General Adult HPI - General Chief complaint: Arrhythmia/Palpitations Stated complaint: Nausea Time Seen by Provider: 10/27/18 13:12 Source: patient, EMS, RN notes reviewed Mode of arrival: EMS Limitations: altered mental status - History of Present Illness Initial comments: Patient is a pleasant 73-year-old female presenting to the emergency Department with complaints of nausea. Patient is a poor historian. Patient presents from [facility]. Patient admits to feeling sick to her stomach. Patient states she has been vomiting. Patient reportedly that patient had dry heaves and nausea and was sweaty. Patient denies any discomfort. No chest pain. No abdominal pain. No history of chronic vomiting per patient. Patient does have a known history of atrial fibrillation. - Related Data Home Medications Medication Instructions Recorded Confirmed Magnesium Oxide [Mag-Ox] 400 mg PO DAILY 08/18/15 10/27/18 Potassium Chloride [Klor-Con 20] 20 meq PO DAILY@0600 08/18/15 10/27/18 Pravastatin Sodium [Pravachol] 40 mg PO Q48H 08/18/15 10/27/18 Furosemide [Lasix] 40 mg PO BID@0600,1400 06/11/17 10/27/18 Acetaminophen [Acetaminophen ER] 650 mg PO Q4HR PRN 09/04/18 10/27/18 Cyanocobalamin [Vitamin B-12 1,000 mg IM QMONTH 09/04/18 10/27/18 Injection] Ferrous Sulfate [Feosol] 325 mg PO DAILY 09/04/18 10/27/18 Magnesium Hydroxide [Milk of 2,400 ml PO DAILY PRN 09/04/18 10/27/18 Magnesia] Memantine HCl [Namenda Xr] 28 mg PO DAILY 09/04/18 10/27/18 traZODone HCL 25 mg PO HS 09/04/18 10/27/18 Albuterol Nebulized [Ventolin 2.5 mg INHALATION RT-Q4H PRN 10/27/18 10/27/18 Nebulized] Bisacodyl [Dulcolax] 10 mg RECTAL DAILY PRN 10/27/18 10/27/18 Hydrocodone/Acetaminophen [Beeson 1 tab PO Q6HR PRN 10/27/18 10/27/18 7.5-325] Losartan Potassium 100 mg PO DAILY 10/27/18 10/27/18 Na Phos,M-B/Na Phos,Di-Ba [Fleet 133 ml RECTAL DAILY PRN 10/27/18 10/27/18 Adult] Omeprazole [PriLOSEC] 20 mg PO DAILY@0600 10/27/18 10/27/18 Potassium Chloride [Klor-Con 10] 10 meq PO DAILY@1400 10/27/18 10/27/18 Previous Rx's Medication Instructions Recorded Diltiazem Oral [Cardizem*] 30 mg PO TID #0 06/17/17 cloNIDine HCL [Catapres] 0.3 mg PO TID tab 06/17/17 Allergies Allergy/AdvReac Type Severity Reaction Status Date / Time No Known Allergies Allergy Verified 10/27/18 13:59 Review of Systems ROS Statement: Those systems with pertinent positive or pertinent negative responses have been documented in the HPI. ROS Other: All systems not noted in ROS Statement are negative. Constitutional: Denies: fever Eyes: Denies: eye pain ENT: Denies: throat pain Respiratory: Denies: cough Cardiovascular: Denies: chest pain Endocrine: Denies: fatigue Gastrointestinal: Reports: as per HPI, nausea. Denies: abdominal pain Genitourinary: Denies: dysuria Musculoskeletal: Denies: back pain Skin: Denies: rash Neurological: Denies: headache Past Medical History Past Medical History: Atrial Fibrillation, Dementia, GERD/Reflux, Hyperlipidemia, Hypertension, Memory Impairment Additional Past Medical History / Comment(s): IRON DEFICIENCY, ANEMIA, SPONDYLOPATHY, CERVICAL REGION, DEGEN. DISC DX,CERVICAL AREA., FX 6TH CERVICAL VERTEBRAE, FX RT FEMUR,INTESTINAL BYPASS AND ANASTOMOSIS STATUS History of Any Multi-Drug Resistant Organisms: MRSA Date of last positivie culture/infection: 09/04/18 MDRO Source:: LEG Past Surgical History: Hysterectomy, Joint Replacement, Tonsillectomy Additional Past Surgical History / Comment(s): rt knee replacement; gastric bypass Past Anesthesia/Blood Transfusion Reactions: No Reported Reaction Past Psychological History: No Psychological Hx Reported Smoking Status: Never smoker - Past Family History Father History Unknown: Yes General Exam Limitations: altered mental status General appearance: alert, in no apparent distress Head exam: Present: atraumatic Eye exam: Present: normal appearance, PERRL ENT exam: Present: normal oropharynx Neck exam: Present: normal inspection Respiratory exam: Present: normal lung sounds bilaterally Cardiovascular Exam: Present: tachycardia, irregular rhythm GI/Abdominal exam: Present: soft. Absent: distended, tenderness, guarding, rebound, rigid Extremities exam: Present: normal inspection Neurological exam: Present: alert Psychiatric exam: Present: normal affect, normal mood Skin exam: Present: normal color Course Vital Signs 10/27/18 10/27/18 10/27/18 13:10 13:12 13:20 Temperature 97.3 F L Pulse Rate 110 H 118 H Respiratory 18 Rate Blood Pressure 206/133 203/111 203/111 O2 Sat by Pulse 95 95 95 Oximetry 10/27/18 10/27/18 10/27/18 13:30 13:40 13:50 Temperature Pulse Rate 113 H 118 H 114 H Respiratory 20 Rate Blood Pressure 188/115 189/121 179/125 O2 Sat by Pulse 93 L 94 L 94 L Oximetry 10/27/18 10/27/18 10/27/18 14:00 14:10 14:20 Temperature Pulse Rate 116 H 123 H 124 H Respiratory 19 Rate Blood Pressure 175/120 188/143 199/132 O2 Sat by Pulse 94 L 95 95 Oximetry 10/27/18 10/27/18 10/27/18 14:22 14:30 14:40 Temperature Pulse Rate 120 H 96 102 H Respiratory 18 Rate Blood Pressure 192/117 182/117 184/115 O2 Sat by Pulse 96 91 L 94 L Oximetry 10/27/18 10/27/18 10/27/18 14:50 15:00 15:20 Temperature Pulse Rate 98 112 H Respiratory 16 Rate Blood Pressure 190/119 180/112 180/120 O2 Sat by Pulse 95 93 L Oximetry 10/27/18 15:58 Temperature Pulse Rate 112 H Respiratory 16 Rate Blood Pressure 191/116 O2 Sat by Pulse 92 L Oximetry EKG Findings - EKG Comments: EKG Findings:: A. fib with RVR, rate 114. QRS 86. QT 304. QTC 419. Normal axis. Normal QRS. Nonspecific T waves. Medical Decision Making - Medical Decision Making Patient reevaluated and updated. Case was discussed in detail with Dr. Hancock, who will admit covering for Dr. Ashby. - Lab Data Result diagrams: 10/27/18 13:38 10/27/18 13:38 Lab Results 10/27/18 10/27/18 10/27/18 Range/Units 13:38 13:38 13:38 WBC 15.6 H (3.8-10.6) k/uL RBC 5.59 H (3.80-5.40) m/uL Hgb 16.3 H (11.4-16.0) gm/dL Hct 50.2 H (34.0-46.0) % MCV 89.7 (80.0-100.0) fL MCH 29.2 (25.0-35.0) pg MCHC 32.5 (31.0-37.0) g/dL RDW 15.1 (11.5-15.5) % Plt Count 159 (150-450) k/uL Neutrophils % 86 % Lymphocytes % 6 % Monocytes % 7 % Eosinophils % 1 % Basophils % 0 % Neutrophils # 13.4 H (1.3-7.7) k/uL Lymphocytes # 1.0 (1.0-4.8) k/uL Monocytes # 1.0 (0-1.0) k/uL Eosinophils # 0.1 (0-0.7) k/uL Basophils # 0.0 (0-0.2) k/uL PT 10.1 (9.0-12.0) sec INR 0.9 (<1.2) APTT 19.1 L (22.0-30.0) sec Sodium 142 (137-145) mmol/L Potassium 4.3 (3.5-5.1) mmol/L Chloride 107 (98-107) mmol/L Carbon Dioxide 27 (22-30) mmol/L Anion Gap 8 mmol/L BUN 35 H (7-17) mg/dL Creatinine 1.01 (0.52-1.04) mg/dL Est GFR (CKD-EPI)AfAm 63 (>60 ml/min/1.73 sqM) Est GFR (CKD-EPI)NonAf 55 (>60 ml/min/1.73 sqM) Glucose 123 H (74-99) mg/dL Calcium 10.2 (8.4-10.2) mg/dL Total Bilirubin 1.1 (0.2-1.3) mg/dL AST 33 (14-36) U/L ALT 30 (9-52) U/L Alkaline Phosphatase 85 (38-126) U/L Creatine Kinase 49 (30-135) U/L Troponin I (0.000-0.034) ng/mL Total Protein 7.2 (6.3-8.2) g/dL Albumin 4.2 (3.5-5.0) g/dL Amylase 41 (30-110) U/L Lipase 74 (23-300) U/L 10/27/18 Range/Units 13:38 WBC (3.8-10.6) k/uL RBC (3.80-5.40) m/uL Hgb (11.4-16.0) gm/dL Hct (34.0-46.0) % MCV (80.0-100.0) fL MCH (25.0-35.0) pg MCHC (31.0-37.0) g/dL RDW (11.5-15.5) % Plt Count (150-450) k/uL Neutrophils % % Lymphocytes % % Monocytes % % Eosinophils % % Basophils % % Neutrophils # (1.3-7.7) k/uL Lymphocytes # (1.0-4.8) k/uL Monocytes # (0-1.0) k/uL Eosinophils # (0-0.7) k/uL Basophils # (0-0.2) k/uL PT (9.0-12.0) sec INR (<1.2) APTT (22.0-30.0) sec Sodium (137-145) mmol/L Potassium (3.5-5.1) mmol/L Chloride (98-107) mmol/L Carbon Dioxide (22-30) mmol/L Anion Gap mmol/L BUN (7-17) mg/dL Creatinine (0.52-1.04) mg/dL Est GFR (CKD-EPI)AfAm (>60 ml/min/1.73 sqM) Est GFR (CKD-EPI)NonAf (>60 ml/min/1.73 sqM) Glucose (74-99) mg/dL Calcium (8.4-10.2) mg/dL Total Bilirubin (0.2-1.3) mg/dL AST (14-36) U/L ALT (9-52) U/L Alkaline Phosphatase (38-126) U/L Creatine Kinase (30-135) U/L Troponin I 0.055 H* (0.000-0.034) ng/mL Total Protein (6.3-8.2) g/dL Albumin (3.5-5.0) g/dL Amylase (30-110) U/L Lipase (23-300) U/L - Radiology Data Radiology results: image reviewed (Abdominal x-ray shows no acute process. Chest x-ray shows chronic changes right effusion.) Critical Care Time Critical Care Time: Yes Total Critical Care Time: 32 Disposition Clinical Impression: Atrial fibrillation with RVR, Pleural effusion, Hypertension, Nausea Disposition: ADMITTED IP TO THIS HOSP Is patient prescribed a controlled substance at d/c from ED?: No Referrals: Srikanth Ashby MD [Primary Care Provider] - 1-2 days Decision Time: 16:18
[2018-10-27 13:57] LABS: Basophils % (A) 0 %; Eosinophils # (A) 0.1 k/uL (0-0.7); Eosinophils % (A) 1 %; HCT 50.2 % (34.0-46.0); HGB 16.3 gm/dL (11.4-16.0); Lymphocytes % (A) 6 %; MCH 29.2 pg (25.0-35.0); MCHC 32.5 g/dL (31.0-37.0); MCV 89.7 fL (80.0-100.0); Mean Platelet Volume 8.6; Monocytes % (A) 7 %; Neutrophils # (A) 13.4 k/uL (1.3-7.7); Neutrophils % (A) 86 %; Platelet Count 159 k/uL (150-450); RBC 5.59 m/uL (3.80-5.40); RDW 15.1 % (11.5-15.5); WBC 15.6 k/uL (3.8-10.6)
[2018-10-27 14:05] LABS: Albumin 4.2 g/dL (3.5-5.0); Calcium 10.2 mg/dL (8.4-10.2); Potassium 4.3 mmol/L (3.5-5.1); Total Bilirubin 1.1 mg/dL (0.2-1.3); Total Protein 7.2 g/dL (6.3-8.2)
[2018-10-27 14:11] LABS: INR 0.9 (<1.2); Prothrombin Time 10.1 sec (9.0-12.0)
[2018-10-27 14:23] LABS: Partial Thromboplastin Time 19.1 sec (22.0-30.0)
--- NOTE | 2018-10-27 15:14 | XR ---
EXAMINATION TYPE: XR chest 2V DATE OF EXAM: 10/27/2018 COMPARISON: Chest x-ray June 11, 2017 HISTORY: Chest and abdominal pain. Diaphoresis. History of atrial fibrillation. TECHNIQUE: Frontal and lateral views of the chest are obtained. FINDINGS: There is new Elevated right hemidiaphragm with small to borderline moderate size right pl eural effusion felt present. No mediastinal shift is seen. Background chronic parenchymal change. Lef t lung is clear. The cardiac silhouette size is stable and mildly enlarged with atherosclerotic aort a. The osseous structures remain demineralized. IMPRESSION: Chronic parenchymal changes and cardiomegaly with new small to borderline moderate size right pleural effusion felt present.
--- NOTE | 2018-10-27 15:28 | XR ---
EXAMINATION TYPE: XR KUB DATE OF EXAM: 10/27/2018 COMPARISON: NONE HISTORY: Diaphoresis. Nausea. TECHNIQUE: 2 views supine FINDINGS: There is no sign of intestinal obstruction or pneumoperitoneum. Fecal pattern is normal. Th ere is fusion surgery at L4-5. I see no pathologic calcifications over the kidneys. There is elevated right diaphragm. There is extensive soft tissue calcification over the lateral left buttock that cou ld relate to fat necrosis. IMPRESSION: Nonacute abdomen.
[2018-10-27] MEDS ORDERED: cloNIDine 0.3 MG/24HR PATCH TRANSDERM SCH (16:00)
[2018-10-27] MEDS ORDERED: NALOXONE 0.4 MG/ML 1 ML VIAL IV PRN (16:19)
[2018-10-27] MEDS ORDERED: SODIUM CHLORIDE 0.9% 1,000 ML IV SCH (16:30)
[2018-10-27] MEDS ORDERED: hydrALAZINE HCL 20 MG/ML 1 ML VIAL IVP STA (18:06)
[2018-10-27] MEDS ORDERED: LORazepam 2 MG/ML INJ IV STA (20:25)
[2018-10-27] MEDS ORDERED: BISACODYL 10 MG SUPP RECTAL PRN (23:47)
[2018-10-27] MEDS ORDERED: ALBUTEROL NEBULIZED 2.5 MG/3 ML INHALATION PRN (23:47)
[2018-10-28] MEDS ORDERED: DILTIAZEM 125 MG in SODIUM CHLORIDE 0.9% 100 ML IV SCH ×2
[2018-10-28] MEDS: cloNIDine HCL 0.1 MG TAB PO SCH ×3 (00:03→17:12)
[2018-10-28] MEDS: PANTOPRAZOLE 40 MG TABLET PO SCH (06:12)
[2018-10-28] MEDS: FUROSEMIDE 40 MG TAB PO SCH ×2 (06:12→14:34)
[2018-10-28] MEDS: POTASSIUM CHLORIDE ER 20 MEQ TAB.ER PO SCH (06:13)
[2018-10-28 07:15] LABS: Basophils % (A) 0 %; Eosinophils % (A) 0 %; HCT 44.8 % (34.0-46.0); HGB 13.8 gm/dL (11.4-16.0); Hypochromasia Slight; Lymphocytes # (A) 1.6 k/uL (1.0-4.8); Lymphocytes % (A) 12 %; MCH 28.3 pg (25.0-35.0); MCHC 30.7 g/dL (31.0-37.0); MCV 92.1 fL (80.0-100.0); Mean Platelet Volume 8.7; Monocytes # (A) 1.1 k/uL (0-1.0); Monocytes % (A) 9 %; Neutrophils # (A) 9.7 k/uL (1.3-7.7); Neutrophils % (A) 77 %; Platelet Count 149 k/uL (150-450); RBC 4.86 m/uL (3.80-5.40); RDW 15.2 % (11.5-15.5); WBC 12.6 k/uL (3.8-10.6)
[2018-10-28 07:47] LABS: Albumin 3.8 g/dL (3.5-5.0); Calcium 9.9 mg/dL (8.4-10.2); Potassium 3.9 mmol/L (3.5-5.1); Total Bilirubin 0.9 mg/dL (0.2-1.3); Total Protein 6.6 g/dL (6.3-8.2)
[2018-10-28] MEDS: PRAVASTATIN SODIUM 40 MG TAB PO SCH (08:56)
[2018-10-28] MEDS: MAGNESIUM OXIDE 400 MG TAB PO SCH (08:56)
[2018-10-28] MEDS: FERROUS SULFATE 325 MG TAB PO SCH (08:56)
[2018-10-28] MEDS: LOSARTAN 50 MG TAB PO SCH (08:56)
[2018-10-28] MEDS: MEMANTINE 10 MG TAB PO SCH ×2 (08:56→21:24)
[2018-10-28] MEDS ORDERED: NA PHOS,M-B/NA PHOS,DI-BA 133 ML ENEMA RECTAL PRN (09:00)
[2018-10-28] MEDS ORDERED: PRAVASTATIN SODIUM 40 MG TAB PO SCH (09:00)
[2018-10-28] MEDS: DILTIAZEM ORAL 60 MG TAB PO SCH ×2 (11:20→17:12)
--- NOTE | 2018-10-28 12:27 | ECHOF ---
Referral Reason:afib MEASUREMENTS -------- HEIGHT: 162.6 cm WEIGHT: 93.0 kg BP: 162/91 RVIDd: 4.0 cm (< 3.3) IVSd: 1.5 cm (0.6 - 1.1) LVIDd: 4.2 cm (3.9 - 5.3) LVPWd: 1.5 cm (0.6 - 1.1) IVSs: 2.0 cm LVIDs: 3.0 cm LVPWs: 1.9 cm LA Diam: 4.1 cm (2.7 - 3.8) LAESV Index (A-L): 30.97 ml/m Ao Diam: 3.0 cm (2.0 - 3.7) AV Cusp: 1.4 cm (1.5 - 2.6) MV EXCURSION: 19.436 mm (> 18.000) MV EF SLOPE: 62 mm/s (70 - 150) EPSS: 0.3 cm AV maxP.71 mmHg AV meanP.05 mmHg RAP: 15.00 mmHg RVSP: 34.18 mmHg FINDINGS -------- Atrial fibrillation. This was a technically difficult study with suboptimal views. The left ventricular size is normal. There is moderate concentric left ventricular hypertrophy. O verall left ventricular systolic function is normal with, an EF between 55 - 60 %. The right ventricle is moderately enlarged. LA is midly dilated 29-33ml/m2. The right atrium is normal in size. 3 ml of Lumason was utilized for enhancement of images. Interatrial and interventricular septum intact. There is mild to moderate aortic valve sclerosis. There is mild aortic stenosis present. Peak/aden n gradient across the Aortic Valve is 20.71mmHg / 12.05mmHg. The mitral valve leaflets are mildly thickened. Mild mitral annular calcification present. Mild tricuspid regurgitation present. There is borderline pulmonary hypertension. The right ventr icular systolic pressure, as measured by Doppler, is 34.18mmHg. The pulmonic valve was not well visualized. The aortic root size is normal. Normal inferior vena cava with less than 50% inspiratory collapse consistent with estimated right atr ial pressure of 15 mmHg. There is no pericardial effusion. CONCLUSIONS -------- 1. Atrial fibrillation. 2. This was a technically difficult study with suboptimal views. 3. The left ventricular size is normal. 4. There is moderate concentric left ventricular hypertrophy. 5. Overall left ventricular systolic function is normal with, an EF between 55 - 60 %. 6. The right ventricle is moderately enlarged. 7. LA is midly dilated 29-33ml/m2. 8. The right atrium is normal in size. 9. 3 ml of Lumason was utilized for enhancement of images. 10. Interatrial and interventricular septum intact. 11. There is mild to moderate aortic valve sclerosis. 12. There is mild aortic stenosis present. 13. Peak/mean gradient across the Aortic Valve is 20.71mmHg / 12.05mmHg. 14. The mitral valve leaflets are mildly thickened. 15. Mild mitral annular calcification present. 16. Mild tricuspid regurgitation present. 17. There is borderline pulmonary hypertension. 18. The right ventricular systolic pressure, as measured by Doppler, is 34.18mmHg. 19. The pulmonic valve was not well visualized. 20. The aortic root size is normal. 21. Normal inferior vena cava with less than 50% inspiratory collapse consistent with estimated right atrial pressure of 15 mmHg. 22. There is no pericardial effusion. CUSTOMER SERVICE ADVISOR: Grace Austin RDCS
[2018-10-28 13:01] LABS: Appearance,Urine Cloudy (Clear); Bacteria,Urine Rare /hpf; Bilirubin,Urine Negative (Negative); Blood,Urine Small (Negative); Color,Urine Light Yellow; Glucose,Urine (UA) Negative (Negative); Hyaline Casts,Urine 12 /lpf (0-2); Ketones,Urine Negative (Negative); Leukocyte Esterase,Urine Large (Negative); Mucus,Urine Rare /hpf; Nitrite,Urine Negative (Negative); Protein,Urine Negative (Negative); RBC,Urine 4 /hpf (0-5); Specific Gravity,Urine 1.013 (1.001-1.035); Squamous Epithelial Cell,Urine 2 /hpf (0-4); Urobilinogen,Urine <2.0 mg/dL (<2.0); WBC,Urine 80 /hpf (0-5)
--- NOTE | 2018-10-28 13:52 | P.CRDCN ---
History of Present Illness History of present illness: This is a pleasant 73-year-old female past medical history significant for dementia, hypertension, dyslipidemia, iron deficiency anemia and chronic persistent atrial fibrillation not on long-term anticoagulation secondary to progressive dementia and failure to comply. She follows in the office of Dr. Morales, however has not been in since 2016. We have been asked to see her in consultation secondary to atrial fibrillation with rapid ventricular response, hypertension and pleural effusion. She is seen and examined sitting up resting comfortably in bed in no acute distress. She states she presented to the hospital because she felt her heart flip flopping in her chest. There is some question regarding her dementia and confusion. Apparently the emergency department currently complaint was nausea. She denies any blood pressure on arrival was 206/133 and 203/111. She has been initiated on a Cardizem drip in the emergency department. Heart rates this morning 77 with a blood pressure of 117/67. EKG on admission atrial fibrillation with heart rate of 114 ST abnormalities noted inferiorly. Chest x-ray rest chronic parenchymal changes with small to borderline moderate size right pleural effusion. Abdominal x-rays negative for any acute abdominal process. Laboratory data reviewed, WBC on admission 15.6 repeat this morning 12.6, hemoglobin on admission 16.3 repeat this morning 13.8, platelets 149, sodium 144, potassium 3.9, creatinine 0.9, GFR 63, troponin 0.055, 0.050, 0.057. At home cardiac medications include losartan 100 mg daily, pravastatin 40 mg every other day, diltiazem 30 mg 3 times a day, Lasix 40 mg twice a day, clonidine 0.3 mg 3 times a day. Echocardiogram obtained reveals preserved LV systolic function with ejection fraction 55-60%, mild to moderate aortic valve sclerosis, mild aortic stenosis with a mean gradient of 12 mmHg, tricuspid regurgitation and mild pulmonary hypertension with an RVSP of 34 mmHg. At the time of my exam: CONSTITUTIONAL: Denies fever. Denies chills. EYES: Denies blurred vision. Denies vision changes. Denies eye pain. EARS, NOSE, MOUTH & THROAT: Denies headache. Denies sore throat. Denies ear pain. CARDIOVASCULAR: Denies chest pain. Denies shortness of breath. Denies orthopnea. Denies PND. Denies palpitations. RESPIRATORY: Denies cough. GASTROINTESTINAL: Denies abdominal pain. Denies diarrhea. Denies constipation. Denies nausea. Denies vomiting. MUSCULOSKELETAL: Denies myalgias. INTEGUMENTARY: Denies pruitis. Denies rash. NEUROLOGIC: Denies numbness. Denies tingling. Denies weakness. PSYCHIATRIC: Denies anxiety. Denies depression. ENDOCRINE: Denies fatigue. Denies weight change. Denies polydipsia. Denies polyurina. GENITOURINARY: Denies burning, hematuria or urgency with micturation. HEMATOLOGIC: Denies history of anemia. Denies bleeding. GENERAL: This is a 73-year-old female in no apparent distress at the time of my examination. HEENT: Head is atraumatic, normocephalic. Pupils are equal, round. Sclerae anicteric. Conjunctivae are clear. Mucous membranes of the mouth are moist. Neck is supple. There is no jugular venous distention. No carotid bruit is heard. LUNGS: Clear to auscultation no wheezes, rales or rhonchi. No chest wall tenderness is noted on palpation or with deep breathing. HEART: Irregular rate and rhythm without murmurs, rubs or gallops. S1 and S2 heard. ABDOMEN: Soft, nontender. Bowel sounds are heard. No organomegaly noted. EXTREMITIES: Trace peripheral lower extremity non-pitting edema with chronic dryness and sloughing of skin. No calf tenderness noted. VASCULAR: Radial and dorsalis pedis pulses palpated, no evidence of clubbing. NEUROLOGIC: Patient is awake, alert and oriented x3. ASSESSMENT Atrial fibrillation with mildly rapid ventricular response. Chronic persistent. On long-term anticoagulation secondary to progressive dementia and n oncompliance. Hypertension, uncontrolled on admission. Mild troponin elevation noted indicative of an acute coronary syndrome with no rise and fall pattern. No evidence of LV wall motion abnormality on echocardiogram. Dyslipidemia Leukocytosis PLAN Echocardiogram has been obtained and reviewed. Discontinue cardizem infusion and increase her PO dose to 60 mg TID. Check NTproBNP and TSH. Repeat chest xray in the morning. We will continue to follow. Nurse Practitioner note has been reviewed, I agree with a documented findings and plan of care. Patient was seen and examined. Past Medical History Past Medical History: Atrial Fibrillation, Dementia, GERD/Reflux, Hyperlipidemia, Hypertension, Memory Impairment, Pneumonia Additional Past Medical History / Comment(s): IRON DEFICIENCY, ANEMIA, SPONDYLOPATHY, CERVICAL REGION, DEGEN. DISC DX,CERVICAL AREA., FX 6TH CERVICAL VERTEBRAE, FX RT FEMUR,INTESTINAL BYPASS AND ANASTOMOSIS STATUS, interstitial lung disease History of Any Multi-Drug Resistant Organisms: MRSA Date of last positivie culture/infection: 09/04/18 MDRO Source:: LEG Past Surgical History: Hysterectomy, Joint Replacement, Tonsillectomy Additional Past Surgical History / Comment(s): rt knee replacement; gastric bypass Past Anesthesia/Blood Transfusion Reactions: No Reported Reaction Past Psychological History: Depression Smoking Status: Never smoker Past Alcohol Use History: None Reported Past Drug Use History: None Reported - Past Family History Father History Unknown: Yes Mother Additional Family Medical History / Comment(s): Rheumatic fever, htn, pneumonia, sepsis Medications and Allergies Home Medications Medication Instructions Recorded Confirmed Type Magnesium Oxide [Mag-Ox] 400 mg PO DAILY 08/18/15 10/27/18 History Potassium Chloride [Klor-Con 20] 20 meq PO DAILY@0600 08/18/15 10/27/18 History Pravastatin Sodium [Pravachol] 40 mg PO Q48H 08/18/15 10/27/18 History Furosemide [Lasix] 40 mg PO BID@0600,1400 06/11/17 10/27/18 History Diltiazem Oral [Cardizem*] 30 mg PO TID #0 06/17/17 10/27/18 Rx cloNIDine HCL [Catapres] 0.3 mg PO TID tab 06/17/17 10/27/18 Rx Acetaminophen [Acetaminophen ER] 650 mg PO Q4HR PRN 09/04/18 10/27/18 History Cyanocobalamin [Vitamin B-12 1,000 mg IM QMONTH 09/04/18 10/27/18 History Injection] Ferrous Sulfate [Feosol] 325 mg PO DAILY 09/04/18 10/27/18 History Magnesium Hydroxide [Milk of 2,400 ml PO DAILY PRN 09/04/18 10/27/18 History Magnesia] Memantine HCl [Namenda Xr] 28 mg PO DAILY 09/04/18 10/27/18 History traZODone HCL 25 mg PO HS 09/04/18 10/27/18 History Albuterol Nebulized [Ventolin 2.5 mg INHALATION RT-Q4H PRN 10/27/18 10/27/18 History Nebulized] Bisacodyl [Dulcolax] 10 mg RECTAL DAILY PRN 10/27/18 10/27/18 History Hydrocodone/Acetaminophen [Gates 1 tab PO Q6HR PRN 10/27/18 10/27/18 History 7.5-325] Losartan Potassium 100 mg PO DAILY 10/27/18 10/27/18 History Na Phos,M-B/Na Phos,Di-Ba [Fleet 133 ml RECTAL DAILY PRN 10/27/18 10/27/18 History Adult] Omeprazole [PriLOSEC] 20 mg PO DAILY@0600 10/27/18 10/27/18 History Potassium Chloride [Klor-Con 10] 10 meq PO DAILY@1400 10/27/18 10/27/18 History Allergies Allergy/AdvReac Type Severity Reaction Status Date / Time No Known Allergies Allergy Verified 10/27/18 13:59 Physical Exam Vitals: Vital Signs Temp Pulse Pulse Resp BP BP Pulse Ox 10/28/18 03:12 97.5 F L 95 20 117/66 97 10/28/18 02:00 119/66 10/28/18 00:30 191/96 10/28/18 00:00 97.9 F 123 H 18 189/92 96 10/27/18 20:40 120 H 20 147/82 10/27/18 20:30 119 H 18 161/87 10/27/18 20:20 122 H 16 162/87 10/27/18 20:05 113 H 18 147/99 98 10/27/18 20:00 99.1 F 120 H 18 140/72 94 L 10/27/18 19:00 118 H 16 193/113 10/27/18 17:50 114 H 187/116 94 L 10/27/18 17:40 98 193/115 95 10/27/18 17:30 117 H 178/104 94 L 10/27/18 17:20 120 H 18 177/113 93 L 10/27/18 17:00 111 H 18 169/109 93 L 10/27/18 16:50 100 170/111 93 L 10/27/18 16:40 111 H 18 174/124 94 L 10/27/18 16:30 118 H 181/122 91 L 10/27/18 16:20 112 H 171/118 95 10/27/18 16:10 124 H 191/116 94 L 10/27/18 15:58 112 H 16 191/116 92 L 10/27/18 15:50 117 H 20 199/112 95 10/27/18 15:40 123 H 186/109 94 L 10/27/18 15:30 106 H 197/116 93 L 10/27/18 15:20 112 H 180/120 93 L 10/27/18 15:00 180/112 10/27/18 14:50 98 16 190/119 95 10/27/18 14:40 102 H 184/115 94 L 10/27/18 14:30 96 182/117 91 L 10/27/18 14:22 120 H 18 192/117 96 10/27/18 14:20 124 H 199/132 95 10/27/18 14:10 123 H 188/143 95 10/27/18 14:00 116 H 19 175/120 94 L 10/27/18 13:50 114 H 179/125 94 L 10/27/18 13:40 118 H 20 189/121 94 L 10/27/18 13:30 113 H 188/115 93 L 10/27/18 13:20 118 H 203/111 95 10/27/18 13:12 97.3 F L 110 H 18 203/111 95 10/27/18 13:10 206/133 95 Intake and Output 10/27/18 10/28/18 10/28/18 22:59 06:59 14:59 Intake Total 200 200 Balance 200 200 Intake: Oral 200 200 Other: # Voids 0 1 Weight 91.5 kg 93 kg Results 10/28/18 05:59 10/28/18 05:59 Cardiac Enzymes 10/27/18 10/27/18 10/27/18 Range/Units 13:38 13:38 19:34 AST 33 (14-36) U/L Troponin I 0.055 H* 0.050 H* (0.000-0.034) ng/mL 10/28/18 10/28/18 Range/Units 01:33 05:59 AST 27 (14-36) U/L Troponin I 0.057 H* (0.000-0.034) ng/mL Coagulation 10/27/18 Range/Units 13:38 PT 10.1 (9.0-12.0) sec APTT 19.1 L (22.0-30.0) sec CBC 10/27/18 10/28/18 Range/Units 13:38 05:59 WBC 15.6 H 12.6 H (3.8-10.6) k/uL RBC 5.59 H 4.86 (3.80-5.40) m/uL Hgb 16.3 H 13.8 (11.4-16.0) gm/dL Hct 50.2 H 44.8 (34.0-46.0) % Plt Count 159 149 L (150-450) k/uL Comprehensive Metabolic Panel 10/27/18 10/28/18 Range/Units 13:38 05:59 Sodium 142 144 (137-145) mmol/L Potassium 4.3 3.9 (3.5-5.1) mmol/L Chloride 107 111 H (98-107) mmol/L Carbon Dioxide 27 25 (22-30) mmol/L BUN 35 H 33 H (7-17) mg/dL Creatinine 1.01 0.90 (0.52-1.04) mg/dL Glucose 123 H 106 H (74-99) mg/dL Calcium 10.2 9.9 (8.4-10.2) mg/dL AST 33 27 (14-36) U/L ALT 30 27 (9-52) U/L Alkaline Phosphatase 85 68 (38-126) U/L Total Protein 7.2 6.6 (6.3-8.2) g/dL Albumin 4.2 3.8 (3.5-5.0) g/dL Current Medications Generic Name Dose Route Start Last Admin Trade Name Freq PRN Reason Stop Dose Admin Acetaminophen 650 mg 10/27/18 23:47 Tylenol Tab PO Q4HR PRN Pain Control Hydrocodone Bitart/Acetaminophen 1 each 10/27/18 23:47 Gates 7.5-325 PO Q6HR PRN Pain Albuterol Sulfate 2.5 mg 10/27/18 23:47 Ventolin Nebulized INHALATION RT-Q4H PRN Shortness Of Breath Bisacodyl 10 mg 10/27/18 23:47 Dulcolax RECTAL DAILY PRN Constipation Clonidine 0.3 mg 10/28/18 00:00 10/28/18 00:03 Catapres PO 0.3 mg TID DSETINEY Administration Ferrous Sulfate 325 mg 10/28/18 09:00 Feosol PO DAILY [facility] Furosemide 40 mg 10/28/18 06:00 10/28/18 06:12 Lasix PO 40 mg BID@0600,1400 [facility] Administration Sodium Chloride 1,000 mls @ 20 mls/hr 10/27/18 16:30 10/27/18 17:29 Saline 0.9% IV Not Given .Q24H DESTINEY Diltiazem HCl 125 mg/ Sodium 125 mls @ 5 mls/hr 10/28/18 00:00 10/28/18 00:03 Chloride IV 5 mg/hr .Q24H DESTINEY 5 mls/hr Administration 5 MG/HR Losartan Potassium 100 mg 10/28/18 09:00 Cozaar PO DAILY [facility] Magnesium Hydroxide 2,400 mg 10/27/18 23:47 Milk Of Magnesia PO DAILY PRN Constipation Magnesium Oxide 400 mg 10/28/18 09:00 Mag-Ox PO DAILY [facility] Memantine 10 mg 10/28/18 09:00 Namenda PO BID [facility] Naloxone HCl 0.2 mg 10/27/18 16:19 Narcan IV Q2M PRN Opioid Reversal Pantoprazole Sodium 40 mg 10/28/18 06:00 10/28/18 06:12 Protonix PO 40 mg DAILY@0600 [facility] Administration Potassium Chloride 10 meq 10/28/18 14:00 K-Dur 10 PO DAILY@1400 [facility] Potassium Chloride 20 meq 10/28/18 06:00 10/28/18 06:13 K-Dur 20 PO 20 meq DAILY@0600 [facility] Administration Pravastatin Sodium 40 mg 10/28/18 09:00 Pravachol PO Q48H [facility] Sodium Biphosphate/Sodium Phosphate 133 ml 10/28/18 09:00 Fleet Adult RECTAL DAILY PRN Constipation Trazodone HCl 25 mg 10/28/18 21:00 Desyrel PO HS [facility] Intake and Output 10/27/18 10/28/18 10/28/18 22:59 06:59 14:59 Intake Total 200 200 Balance 200 200 Intake: Oral 200 200 Other: # Voids 0 1 Weight 91.5 kg 93 kg 10/28/18 05:59 10/28/18 05:59
[2018-10-28] MEDS: POTASSIUM CHLORIDE ER 10 MEQ TAB.ER.PRT PO SCH (14:34)
[2018-10-28] MEDS: FUROSEMIDE 10 MG/ML 4 ML VIAL IV SCH (16:14)
--- NOTE | 2018-10-28 16:34 | HP ---
HISTORY AND PHYSICAL DATE OF ADMISSION: 10/27/2018 DATE OF SERVICE: 10/28/2018. PRESENTING COMPLAINT: Nausea, heart racing. HISTORY OF PRESENTING COMPLAINT: This is a 73-year-old patient who is currently a resident of [facility]. Chronic stable medical conditions include obesity, persistent atrial fibrillation, not a candidate for anticoagulation, Alzheimer's dementia, hypertension. The patient is a resident of [facility] on the [place]. EMS was called out. The patient has been complaining of nausea and did not even take her medications on the day of presentation. Heart rate had gone up to about 110s to 120. The patient kept calling out for brother. Patient has underlying dementia. The patient herself not able to give me much of a history. Cannot tell me if she has any really any other symptoms. REVIEW OF SYSTEMS: CONSTITUTIONAL: Tired. HEENT none. RESPIRATORY: Cannot tell. CARDIOVASCULAR: As above. GASTROINTESTINAL: Nausea. GENITOURINARY: None. MUSCULOSKELETAL: Pain in some joints. DERMATOLOGICAL: Chronic lower extremity skin changes. HEMATOLOGICAL, LYMPHATICS: None. PSYCHIATRY: Very forgetful. NEUROLOGICAL: None. PAST MEDICAL HISTORY: Atrial fibrillation, dementia, GERD, hyperlipidemia, hypertension, iron deficiencies, interstitial lung disease. PAST SURGICAL HISTORY: Hysterectomy, right knee replacement, gastric bypass. SOCIAL HISTORY: No smoking, alcohol. Currently resident of [facility]. FAMILY HISTORY: Of hypertension, rheumatic fever. HOME MEDICATIONS: 1. Trazodone 25 mg q.h.s. 2. Catapres 0.3 mg p.o. t.i.d. 3. Pravachol 40 mg q.48 hours. 4. Potassium 20 mEq p.o. daily and 10 mEq at 2:00 pm. 5. Prilosec 20 mg p.o. daily. 6. Adult Fleet 133 mL rectal daily p.r.n. 7. Namenda XR 28 mg p.o. daily. 8. Magnesium oxide 400 mg p.o. daily. 9. Milk of magnesia 2400 mg daily p.r.n. 10.Losartan 100 mg p.o. daily. 11.[place] 7.5 one tab q.6h p.r.n. 12.Lasix 40 mg b.i.d. 13.Iron 325 p.o. daily. 14.Cardizem 30 mg t.i.d. 15.Vitamin B12 1000 mcg every month. 16.Dulcolax 10 mg rectally daily p.r.n. 17.Ventolin 2.5 q.4 p.r.n. 18.Tylenol 650 mg q.4 p.r.n. ALLERGIES: None. PHYSICAL EXAMINATION: VITAL SIGNS: Vital signs on presentation, temperature 97.3, pulse 118, respiration 18, blood pressure was 139/125, pulse 95% on room air. GENERAL APPEARANCE: Well built. BMI 35.2, sitting up, tired-appearing. EYES: Pupils equal. Conjunctivae normal. HEENT: External appearance of nose and ears normal. Oral cavity normal. NECK: JVD unable to assess. Mass not palpable. RESPIRATORY: Effort normal. LUNGS: Fair air entry. CARDIOVASCULAR: Heart sounds irregular. Minimal edema. ABDOMEN: Soft, nontender. Liver and spleen not palpable. LYMPHATICS: No lymph nodes palpable in the neck and axilla. PSYCHIATRY: Patient knows her name, does not know where she is or why she is here. Does not know the month or the year. NEUROLOGICAL: Pupils equal. No facial asymmetry. Does move her limbs. INVESTIGATIONS: White count 15.6, hemoglobin 16.3. Potassium 4.3. BUN 35, creatinine 1.01. Troponin 0.055 and 0.050 and 0.057. ProBNP 4060. 2D echocardiogram, EF of 55-60 percent, moderate concentric left ventricular hypertrophy. EKG tracing personally reviewed by me shows atrial flutter with a rate of 114. Chest x-ray personally reviewed by me shows questionable venous prominence, elevated right diaphragm versus possible right- sided pleural effusion. ASSESSMENT: 1. Persistent atrial fibrillation now with rapid ventricular rate, uncontrolled on presentation. 2. Right pleural effusion could be from congestive heart failure. 3. Acute on chronic congestive heart failure from diastolic dysfunction. Ejection fraction 55-60 percent, precipitated by atrial fibrillation. 4. Major cognitive impairment from late onset dementia. 5. Gastroesophageal reflux disease. 6. Hypertension. 7. Hyperlipidemia. 8. Primary osteoarthritis. 9. Troponin leak probably from congestive heart failure. No obvious evidence of acute coronary syndrome. PLAN: Patient's dose of Cardizem was increased. We will give a couple of doses of IV Lasix. Keep a close eye on the electrolytes. Cardiology was consulted. Copy to Dr. Ashby. MMODL / IJN: [id number] /
[2018-10-28] MEDS: traZODone HCL 50 MG TAB PO SCH (21:24)
[2018-10-29] MEDS: FUROSEMIDE 10 MG/ML 4 ML VIAL IV SCH ×3 (00:03→14:00)
[2018-10-29] MEDS: DILTIAZEM ORAL 60 MG TAB PO SCH ×4 (02:35→22:09)
[2018-10-29] MEDS: PANTOPRAZOLE 40 MG TABLET PO SCH (06:06)
[2018-10-29] MEDS: POTASSIUM CHLORIDE ER 20 MEQ TAB.ER PO SCH (06:06)
--- NOTE | 2018-10-29 06:43 | XR ---
EXAMINATION TYPE: XR chest 2V DATE OF EXAM: 10/29/2018 HISTORY: follow up. REFERENCE: Previous study dated 10/27/2018. FINDINGS: There is chronic apparent elevation of the right hemidiaphragm. The heart is enlarged. No d efinite pleural fluid is seen. The lungs appear clear. IMPRESSION: MILD CARDIOMEGALY.
[2018-10-29 07:18] LABS: Calcium 9.8 mg/dL (8.4-10.2); Potassium 3.8 mmol/L (3.5-5.1)
[2018-10-29] MEDS: LOSARTAN 50 MG TAB PO SCH (08:37)
[2018-10-29] MEDS: FERROUS SULFATE 325 MG TAB PO SCH (08:37)
[2018-10-29] MEDS: MAGNESIUM OXIDE 400 MG TAB PO SCH (08:37)
[2018-10-29] MEDS: MEMANTINE 10 MG TAB PO SCH ×2 (08:37→20:38)
[2018-10-29] MEDS: cloNIDine HCL 0.1 MG TAB PO SCH ×4 (08:37→22:09)
--- NOTE | 2018-10-29 13:29 | P.PN ---
Subjective Progress Note Date: 10/29/18 This is a pleasant 73-year-old female past medical history significant for dementia, hypertension, dyslipidemia, iron deficiency anemia and chronic persistent atrial fibrillation not on long-term anticoagulation secondary to progressive dementia and failure to comply. She follows in the office of Dr. Morales, however has not been in since 2015. We have been asked to see her in consultation secondary to atrial fibrillation with rapid ventricular response, hypertension and pleural effusion. She is seen and examined sitting up resting comfortably in bed in no acute distress. She states she presented to the hospital because she felt her heart flip flopping in her chest. There is some question regarding her dementia and confusion. Apparently the emergency department currently complaint was nausea. She denies any blood pressure on arrival was 206/133 and 203/111. She has been initiated on a Cardizem drip in the emergency department. Heart rates this morning 77 with a blood pressure of 117/67. 10/29/2018 Patient was seen and examined this morning, no complaints. Hemodynamically stable. Blood pressure 102/58 with a heart rate in the 60s, 94% on room air. Sodium 140, potassium 3.8, BUN 28 and creatinine 0.9. Echocardiogram with Doppler study was performed which revealed an ejection fraction of 55-60%, mild to moderate aortic valve sclerosis with mild aortic stenosis. Objective - Vital Signs Vital signs: Vital Signs Temp 98.7 F 10/29/18 11:30 Pulse 61 10/29/18 11:30 Resp 18 10/29/18 11:30 BP 102/58 10/29/18 11:30 Pulse Ox 94 L 10/29/18 11:30 Intake & Output 10/28/18 10/29/18 10/29/18 18:59 06:59 18:59 Intake Total 480 480 Output Total 400 600 Balance 80 -120 Weight 92.5 kg Intake: Oral 480 480 Output: Urine 400 600 Other: Voiding Method Bedpan Bedpan # Voids 3 2 - Exam GENERAL: This is a 73-year-old female in no apparent distress at the time of my examination. HEENT: Head is atraumatic, normocephalic. Pupils are equal, round. Sclerae anicteric. Conjunctivae are clear. Mucous membranes of the mouth are moist. Neck is supple. There is no jugular venous distention. No carotid bruit is heard. LUNGS: Clear to auscultation no wheezes, rales or rhonchi. No chest wall t enderness is noted on palpation or with deep breathing. HEART: Irregular rate and rhythm without murmurs, rubs or gallops. S1 and S2 heard. ABDOMEN: Soft, nontender. Bowel sounds are heard. No organomegaly noted. EXTREMITIES: Trace peripheral lower extremity non-pitting edema with chronic dryness and sloughing of skin. No calf tenderness noted. VASCULAR: Radial and dorsalis pedis pulses palpated, no evidence of clubbing. NEUROLOGIC: Patient is awake, alert and oriented x2. - Labs CBC & Chem 7: 10/28/18 05:59 10/29/18 06:06 Labs: Abnormal Lab Results - Last 24 Hours (Table) 10/29/18 Range/Units 06:06 BUN 28 H (7-17) mg/dL Assessment and Plan Plan: ASSESSMENT AND PLAN #1Atrial fibrillation with mildly rapid ventricular response. Chronic persistent. Not on long-term anticoagulation secondary to progressive dementia and noncompliance. #2Hypertension, uncontrolled on admission. #3Mild troponin elevation noted indicative of an acute coronary syndrome with no rise and fall pattern. No evidence of LV wall motion abnormality on echocardiogram. #4Dyslipidemia #5Leukocytosis Plan Repeat chest x-ray this morning showed mild cardiomegaly. From our perspective, patient may be able to be switched over to oral diuretics from tomorrow. DNP note has been reviewed, I agree with a documented findings and plan of care. Patient was seen and examined.
[2018-10-29] MEDS: POTASSIUM CHLORIDE ER 10 MEQ TAB.ER.PRT PO SCH (14:00)
[2018-10-29] MEDS: traZODone HCL 50 MG TAB PO SCH (20:38)
[2018-10-29] MEDS: ACETAMINOPHEN TAB 325 MG TAB PO PRN (22:49)
--- NOTE | 2018-10-29 23:42 | PN ---
PROGRESS NOTE DATE OF SERVICE: 10/29/2018. PRESENTING COMPLAINT: Tired. INTERVAL HISTORY: This patient admitted with atrial fibrillation, uncontrolled, congestive heart failure exacerbation. Did get IV Lasix. Breathing is better. Tolerating a diet. Overall feeling better. Heart rate is better controlled. REVIEW OF SYSTEMS: Done for constitutional, cardiovascular, GI, pulmonary and relevant findings as above. CURRENT MEDICATIONS: Reviewed that include Cardizem 60 mg t.i.d., IV Lasix is being discontinued. PHYSICAL EXAMINATION: VITAL SIGNS: Temperature 98.8, pulse 58, respirations 16, blood pressure 176/79, pulse ox 97% on room air. GENERAL APPEARANCE: Sitting up, awake. EYES: Pupils equal. Conjunctivae normal. NECK: JVD unable to assess. Mass not palpable. RESPIRATORY: Effort increased. LUNGS: Improved air entry. CARDIOVASCULAR: Heart sounds irregular. Minimal edema. ABDOMEN: Soft, nontender. Liver and spleen not palpable. PSYCHIATRY: Can answer only simple questions. INVESTIGATIONS: Potassium 3.8, BUN 28, creatinine 0.91. ASSESSMENT: 1. Persistent atrial fibrillation with rapid ventricular rate on presentation, heart rate now better controlled. 2. Right pleural effusion could be from congestive heart failure. 3. Acute on chronic congestive heart failure from diastolic dysfunction. Ejection fraction 50-55 percent, precipitated by atrial fibrillation, improved. 4. Major cognitive impairment from late onset dementia. 5. Gastroesophageal reflux disease. 6. Hypertension. 7. Hyperlipidemia. 8. Primary osteoarthritis. 9. Troponin leak from congestive heart failure. PLAN: The patient will be switched to p.o. Lasix tomorrow. If remains stable can be discharged. Prognosis guarded. MMODL / IJN: [id number] /
[2018-10-30] MEDS: PANTOPRAZOLE 40 MG TABLET PO SCH (05:12)
[2018-10-30] MEDS: POTASSIUM CHLORIDE ER 20 MEQ TAB.ER PO SCH (05:12)
[2018-10-30] MEDS: ACETAMINOPHEN TAB 325 MG TAB PO PRN (06:41)
[2018-10-30 07:00] LABS: Calcium 9.7 mg/dL (8.4-10.2)
[2018-10-30] MEDS: HYDROcodone/APAP 7.5-325MG 1 EACH TAB PO PRN (08:34)
[2018-10-30] MEDS: MAGNESIUM OXIDE 400 MG TAB PO SCH (09:10)
[2018-10-30] MEDS: cloNIDine HCL 0.1 MG TAB PO SCH ×3 (09:10→21:03)
[2018-10-30] MEDS: DILTIAZEM ORAL 60 MG TAB PO SCH ×2 (09:11→15:35)
[2018-10-30] MEDS: FUROSEMIDE 40 MG TAB PO SCH ×2 (09:11→15:38)
[2018-10-30] MEDS: MEMANTINE 10 MG TAB PO SCH ×2 (09:11→21:03)
[2018-10-30] MEDS: PRAVASTATIN SODIUM 40 MG TAB PO SCH (09:11)
[2018-10-30] MEDS: FERROUS SULFATE 325 MG TAB PO SCH (09:11)
[2018-10-30] MEDS: LOSARTAN 50 MG TAB PO SCH (11:36)
[2018-10-30] MEDS: MAGNESIUM HYDROXIDE 2,400 MG/10 ML CUP PO PRN (14:05)
[2018-10-30] MEDS: POTASSIUM CHLORIDE ER 10 MEQ TAB.ER.PRT PO SCH (14:05)
--- NOTE | 2018-10-30 15:12 | P.PN ---
Subjective Progress Note Date: 10/30/18 This is a pleasant 73-year-old female past medical history significant for dementia, hypertension, dyslipidemia, iron deficiency anemia and chronic persistent atrial fibrillation not on long-term anticoagulation secondary to progressive dementia and failure to comply. She follows in the office of Dr. Morales, however has not been in since 2015. We have been asked to see her in consultation secondary to atrial fibrillation with rapid ventricular response, hypertension and pleural effusion. She is seen and examined sitting up resting comfortably in bed in no acute distress. She states she presented to the hospital because she felt her heart flip flopping in her chest. There is some question regarding her dementia and confusion. Apparently the emergency department currently complaint was nausea. She denies any blood pressure on arrival was 206/133 and 203/111. She has been initiated on a Cardizem drip in the emergency department. Heart rates this morning 77 with a blood pressure of 117/67. 10/29/2018 Patient was seen and examined this morning, no complaints. Hemodynamically stable. Blood pressure 102/58 with a heart rate in the 60s, 94% on room air. Sodium 140, potassium 3.8, BUN 28 and creatinine 0.9. Echocardiogram with Doppler study was performed which revealed an ejection fraction of 55-60%, mild to moderate aortic valve sclerosis with mild aortic stenosis. 10/30/2018 Patientseen and examined today, no complaints, significant fluctuations in blood pressure noted, at 820 this morning her blood pressure was 188/90, at 9:00 this morning in the left arm 140/100, right arm 150/100. Then at 11 AM her pressure was documented to be 96/60. Once the patient has had her lunch today we will recheck her blood pressures, she does not stand, so we will check a lying and fully sitting up blood pressure in both arms and make medication adjustments accordingly. Objective - Vital Signs Vital signs: Vital Signs Temp 98 F 10/30/18 11:30 Pulse 65 10/30/18 11:30 Resp 20 10/30/18 11:31 BP 96/60 10/30/18 11:30 Pulse Ox 94 L 10/30/18 11:30 Intake & Output 10/29/18 10/30/18 10/30/18 18:59 06:59 18:59 Intake Total 720 240 Output Total 1400 400 Balance -680 -160 Weight 91.5 kg Intake: Oral 720 240 Output: Urine 1400 400 Other: Voiding Method Bedpan Bedpan Bedpan # Voids 1 1 - Exam GENERAL: This is a 73-year-old female in no apparent distress at the time of my examination. HEENT: Head is atraumatic, normocephalic. Pupils are equal, round. Sclerae anicteric. Conjunctivae are clear. Mucous membranes of the mouth are moist. Neck is supple. There is no jugular venous distention. No carotid bruit is heard. LUNGS: Clear to auscultation no wheezes, rales or rhonchi. No chest wall tenderness is noted on palpation or with deep breathing. HEART: Irregular rate and rhythm without murmurs, rubs or gallops. S1 and S2 heard. ABDOMEN: Soft, nontender. Bowel sounds are heard. No organomegaly noted. EXTREMITIES: Trace peripheral lower extremity non-pitting edema with chronic dry ness and sloughing of skin. No calf tenderness noted. VASCULAR: Radial and dorsalis pedis pulses palpated, no evidence of clubbing. NEUROLOGIC: Patient is awake, alert and oriented x2. - Labs CBC & Chem 7: 10/28/18 05:59 10/30/18 05:25 Labs: Abnormal Lab Results - Last 24 Hours (Table) 10/30/18 Range/Units 05:25 BUN 29 H (7-17) mg/dL Glucose 102 H (74-99) mg/dL Assessment and Plan Plan: ASSESSMENT AND PLAN #1Atrial fibrillation with mildly rapid ventricular response. Chronic persistent. Not on long-term anticoagulation secondary to progressive dementia and noncompliance. #2Hypertension, uncontrolled on admission. #3Mild troponin elevation noted indicative of an acute coronary syndrome with no rise and fall pattern. No evidence of LV wall motion abnormality on echocardiogram. #4Dyslipidemia #5Leukocytosis Plan We will check orthostatics, lying and sitting in both arms, and adjustments will be made to her medications accordingly. She continues to be in atrial fibrillation with a controlled ventricular response. DNP note has been reviewed, I agree with a documented findings and plan of care. Patient was seen and examined.
[2018-10-30] MEDS: traZODone HCL 50 MG TAB PO SCH (21:04)
--- NOTE | 2018-10-30 23:55 | PN ---
PROGRESS NOTE DATE OF SERVICE: October 30, 2018. PRESENTING COMPLAINT: Tired. INTERVAL HISTORY: Patient admitted with atrial fibrillation, uncontrolled; congestive heart failure exacerbation. Did get IV Lasix, hardly eating. Nausea is present. Tired. Because of dementia, does not really communicate much. REVIEW OF SYSTEMS: Attempted for constitutional, cardiovascular, GI, pulmonary; relevant findings as above. CURRENT MEDICATIONS: Reviewed that include: p.o. Lasix and Cardizem 60 mg 3 times a day. PHYSICAL EXAMINATION: VITAL SIGNS: Temperature 97.8, pulse 79. Respiratory rate 20, blood pressure 109/63, pulse ox 98% on room air. GENERAL APPEARANCE: Lying in bed, tired-appearing. EYES: Pupils are equal. Conjunctivae normal. NECK: JVD unable to assess. Mass not palpable. RESPIRATORY: Effort increased. LUNGS: Fair air entry. CARDIOVASCULAR: Heart sounds irregular. Minimal edema. ABDOMEN: Soft, nontender. Liver and spleen not palpable. PSYCHIATRY: Can answer only some simple questions. INVESTIGATIONS: Potassium 4, BUN 29, creatinine 0.90. ASSESSMENT: 1. Persistent atrial fibrillation rapid ventricular rate on presentation, heart rate now better controlled. 2. Right pleural effusion that could be from congestive heart failure. 3. Acute on chronic congestive heart failure from diastolic dysfunction. Ejection fraction 50-55 percent presented with atrial fibrillation. 4. Major cognitive impairment from late onset dementia. 5. Gastroesophageal reflux disease. 6. Hypertension. 7. Hyperlipidemia. 8. Primary osteoarthritis. 9. Troponin leak from congestive heart failure. PLAN: We will cut back the dose of p.o. Lasix as patient's oral intake is minimal. We will also stop the Namenda. Does not play a role in advanced dementia. We will also stop the ferrous sulfate that could be contributing to patient's nausea. Follow. MMODL / IJN: [id number] /
[2018-10-31] MEDS: HYDROcodone/APAP 7.5-325MG 1 EACH TAB PO PRN ×2 (01:22→06:31)
[2018-10-31] MEDS: DILTIAZEM ORAL 60 MG TAB PO SCH ×4 (01:27→21:43)
[2018-10-31] MEDS: POTASSIUM CHLORIDE ER 20 MEQ TAB.ER PO SCH (05:30)
[2018-10-31] MEDS: PANTOPRAZOLE 40 MG TABLET PO SCH (05:30)
[2018-10-31 07:25] LABS: Calcium 9.8 mg/dL (8.4-10.2); Potassium 3.6 mmol/L (3.5-5.1)
[2018-10-31] MEDS ORDERED: NITROGLYCERIN SL TABS 0.4 MG TAB SUBLINGUAL STA (09:42)
[2018-10-31] MEDS ORDERED: ONDANSETRON 4 MG/2 ML VIAL IVP STA (09:42)
[2018-10-31] MEDS: cloNIDine HCL 0.1 MG TAB PO SCH ×3 (10:21→21:43)
[2018-10-31] MEDS: FUROSEMIDE 40 MG TAB PO SCH (11:12)
[2018-10-31] MEDS: MAGNESIUM OXIDE 400 MG TAB PO SCH (11:12)
[2018-10-31] MEDS: LOSARTAN 50 MG TAB PO SCH (11:12)
[2018-10-31] MEDS: MAGNESIUM HYDROXIDE 2,400 MG/10 ML CUP PO PRN (11:12)
[2018-10-31 12:10] LABS: Glucose,Whole Blood 174 mg/dL (75-99)
--- NOTE | 2018-10-31 16:34 | P.PN ---
Subjective Progress Note Date: 10/31/18 This is a pleasant 73-year-old female past medical history significant for dementia, hypertension, dyslipidemia, iron deficiency anemia and chronic persistent atrial fibrillation not on long-term anticoagulation secondary to progressive dementia and failure to comply. She follows in the office of Dr. Morales, however has not been in since 2015. We have been asked to see her in consultation secondary to atrial fibrillation with rapid ventricular response, hypertension and pleural effusion. She is seen and examined sitting up resting comfortably in bed in no acute distress. She states she presented to the hospital because she felt her heart flip flopping in her chest. There is some question regarding her dementia and confusion. Apparently the emergency department currently complaint was nausea. She denies any blood pressure on arrival was 206/133 and 203/111. She has been initiated on a Cardizem drip in the emergency department. Heart rates this morning 77 with a blood pressure of 117/67. 10/29/2018 Patient was seen and examined this morning, no complaints. Hemodynamically stable. Blood pressure 102/58 with a heart rate in the 60s, 94% on room air. Sodium 140, potassium 3.8, BUN 28 and creatinine 0.9. Echocardiogram with Doppler study was performed which revealed an ejection fraction of 55-60%, mild to moderate aortic valve sclerosis with mild aortic stenosis. 10/30/2018 Patientseen and examined today, no complaints, significant fluctuations in blood pressure noted, at 820 this morning her blood pressure was 188/90, at 9:00 this morning in the left arm 140/100, right arm 150/100. Then at 11 AM her pressure was documented to be 96/60. Once the patient has had her lunch today we will recheck her blood pressures, she does not stand, so we will check a lying and fully sitting up blood pressure in both arms and make medication adjustments accordingly. 10/31/2018 Patient was seen and examined this morning, complaining of feeling a generalized pain all over her body, very nauseated and quite confused. Blood pressure 187/88 with a heart rate in the 90s. Given a one-time dose of; nitro, as she was given her oral medications and she vomited. Once patient is to keep medication down we will give her antihypertensives. Objective - Vital Signs Vital signs: Vital Signs Temp 98.2 F 10/31/18 16:00 Pulse 91 10/31/18 16:00 Resp 22 10/31/18 16:00 BP 185/86 10/31/18 16:00 Pulse Ox 94 L 10/31/18 09:22 Intake & Output 10/30/18 10/31/18 10/31/18 18:59 06:59 18:59 Intake Total 600 360 40 Output Total 400 300 100 Balance 200 60 -60 Weight 90 kg Intake: IV 40 Invasive Line 2 40 Oral 600 360 Output: Urine 400 300 100 Other: Voiding Method Bedpan Bedpan # Voids 1 1 - Exam GENERAL: This is a 73-year-old female in no apparent distress at the time of my examination. HEENT: Head is atraumatic, normocephalic. Pupils are equal, round. Sclerae anicteric. Conjunctivae are clear. Mucous membranes of the mouth are moist. Neck is supple. There is no jugular venous distention. No carotid bruit is heard. LUNGS: Clear to auscultation no wheezes, rales or rhonchi. No chest wall tenderness is noted on palpation or with deep breathing. HEART: Irregular rate and rhythm without murmurs, rubs or gallops. S1 and S2 heard. ABDOMEN: Soft, nontender. Bowel sounds are heard. No organomegaly noted. EXTREMITIES: Trace peripheral lower extremity non-pitting edema with chronic dryness and sloughing of skin. No calf tenderness noted. VASCULAR: Radial and dorsalis pedis pulses palpated, no evidence of clubbing. NEUROLOGIC: Patient is awake, alert and oriented x2. - Labs CBC & Chem 7: 10/28/18 05:59 10/31/18 06:32 Labs: Abnormal Lab Results - Last 24 Hours (Table) 10/31/18 10/31/18 Range/Units 06:32 11:48 BUN 26 H (7-17) mg/dL Glucose 110 H (74-99) mg/dL POC Glucose (mg/dL) 174 H (75-99) mg/dL Assessment and Plan Plan: ASSESSMENT AND PLAN #1Atrial fibrillation with mildly rapid ventricular response. Chronic persis tent. Not on long-term anticoagulation secondary to progressive dementia and noncompliance. #2Hypertension, uncontrolled on admission. #3Mild troponin elevation noted indicative of an acute coronary syndrome with no rise and fall pattern. No evidence of LV wall motion abnormality on echocardiogram. #4Dyslipidemia #5Leukocytosis Plan From cardiology's perspective, we'll recommend to continue the patient on her current medications. We will continue to follow. DNP note has been reviewed, I agree with a documented findings and plan of care. Patient was seen and examined.
[2018-10-31] MEDS: traZODone HCL 50 MG TAB PO SCH (21:43)
[2018-10-31] MEDS: ACETAMINOPHEN TAB 325 MG TAB PO PRN (21:43)
--- NOTE | 2018-10-31 22:56 | PN ---
PROGRESS NOTE DATE OF SERVICE: 10/31/2018. PRESENTING COMPLAINT: Tired. INTERVAL HISTORY: This patient with advanced dementia presented with atrial fibrillation, uncontrolled CHF. Oral intake is still limited. Has had intermittent nausea. REVIEW OF SYSTEMS: Attempted for constitutional, cardiovascular, GI, pulmonary; relevant findings as above. CURRENT MEDICATIONS: Reviewed that include IV ceftriaxone and p.o. Lasix. PHYSICAL EXAMINATION: Temperature 98.2, pulse 91, respirations 16, blood pressure 114/74. Later on with pain blood pressure did go up. GENERAL APPEARANCE: Lying in bed, awake. Not in distress. EYES: Pupils equal. Conjunctivae normal. NECK: JVD not raised. Respiratory effort normal. LUNGS: Fair air entry. CARDIOVASCULAR: 1st and 2nd heart sounds normal. No edema. ABDOMEN: Soft, nontender. PSYCHIATRY: The patient is able to answer only simple questions. INVESTIGATIONS: Potassium 3.6, BUN 26, creatinine 0.95. ASSESSMENT: 1. Persistent atrial fibrillation with rapid ventricular rate on presentation. 2. Right pleural effusion that could be from CHF. 3. Acute on chronic congestive heart failure exacerbation from diastolic dysfunction. Ejection fraction 50 to 55 percent. 4. Major cognitive impairment from late onset dementia. 5. Gastroesophageal reflux disease. 6. Hypertension. 7. Hyperlipidemia. 8. Primary osteoarthritis. 9. Troponin leak from congestive heart failure. PLAN: Continue current medication and treatment plan. We will check a manual blood pressure right now. Will follow. MMVALERIANOL / IJN: [id number] /
[2018-11-01] MEDS: HYDROcodone/APAP 7.5-325MG 1 EACH TAB PO PRN (01:21)
[2018-11-01] MEDS: POTASSIUM CHLORIDE ER 20 MEQ TAB.ER PO SCH (06:15)
[2018-11-01] MEDS: PANTOPRAZOLE 40 MG TABLET PO SCH (06:15)
[2018-11-01] MEDS: FUROSEMIDE 40 MG TAB PO SCH (06:28)
[2018-11-01] MEDS: cloNIDine HCL 0.1 MG TAB PO SCH ×3 (06:28→21:19)
[2018-11-01 06:52] LABS: Calcium 10.1 mg/dL (8.4-10.2); Potassium 3.9 mmol/L (3.5-5.1)
[2018-11-01] MEDS ORDERED: ONDANSETRON 4 MG/2 ML VIAL IVP STA (07:08)
[2018-11-01] MEDS: DILTIAZEM ORAL 60 MG TAB PO SCH ×3 (09:06→21:19)
[2018-11-01] MEDS: PANTOPRAZOLE 40 MG/10 ML VIAL IVP SCH ×2 (09:06→21:18)
[2018-11-01] MEDS: MAGNESIUM OXIDE 400 MG TAB PO SCH (09:06)
[2018-11-01] MEDS: PRAVASTATIN SODIUM 40 MG TAB PO SCH (09:06)
[2018-11-01] MEDS: LOSARTAN 50 MG TAB PO SCH (09:06)
--- NOTE | 2018-11-01 10:05 | P.CONS ---
History of Present Illness - Reason for Consult Consult date: 11/01/18 Nausea Requesting physician: Hill Hancock - Chief Complaint Nausea - History of Present Illness 73-year-old female mild dementia underlying GERD admitted with nausea and dry heaves A. fib RVR CHF exacerbation. Denies abdominal pain. Consult requested for nausea. Per nursing reports no of hematemesis hematochezia or melena. No fevers. Sodium 140. Potassium 3.9. BUN 19. Creatinine 0.8. White count 12.6. Hemoglobin 13.8. Patient denies epigastric abdominal pain. It appears she may be experiencing some mild oral candidiasis. No recent EGD to her memory. Review of Systems Constitutional: Denies fever, chills, sweats, weight gain, or loss. HEENT: Negative for migraines, blurred vision or loss, earaches, drainage, tinnitus, oral mucosal lesions, dysphagia, or odynophagia. CARDIAC: Negative for chest pain, arrhythmias, or palpitation. RESPIRATORY: Negative for shortness of breath, hemoptysis, cough, or sputum production. GI: See HPI for pertinent findings. : Negative for hematuria, urgency, frequency, polyuria, or dysuria. GYNc: Denies possibility of . Negative vaginal discharge. MUSCULOSKELETAL: Negative for muscle aches, swelling, arthritis, and arthralgias. NEUROLOGIC: Negative for stroke or TIA. ENDOCRINE: Negative for thyroid problems. SKIN: Negative for rash or itching. PSYCHIATRIC: Negative history for depression and anxietyale ROS unobtainable: due to mental status Past Medical History Past Medical History: Atrial Fibrillation, Dementia, GERD/Reflux, Hyperlipidemia, Hypertension, Memory Impairment, Pneumonia Additional Past Medical History / Comment(s): IRON DEFICIENCY, ANEMIA, SPONDYLOPATHY, CERVICAL REGION, DEGEN. DISC DX,CERVICAL AREA., FX 6TH CERVICAL VERTEBRAE, FX RT FEMUR,INTESTINAL BYPASS AND ANASTOMOSIS STATUS, interstitial lung disease History of Any Multi-Drug Resistant Organisms: MRSA Year Discovered:: 09/04/18 MDRO Source:: LEG Past Surgical History: Hysterectomy, Joint Replacement, Tonsillectomy Additional Past Surgical History / Comment(s): rt knee replacement; gastric bypass Past Anesthesia/Blood Transfusion Reactions: No Reported Reaction Past Psychological History: Depression Smoking Status: Never smoker Past Alcohol Use History: None Reported Past Drug Use History: None Reported - Past Family History Father History Unknown: Yes Mother Additional Family Medical History / Comment(s): Rheumatic fever, htn, pneumonia, sepsis Medications and Allergies Home Medications Medication Instructions Recorded Confirmed Type Magnesium Oxide [Mag-Ox] 400 mg PO DAILY 08/18/15 10/27/18 History Potassium Chloride [Klor-Con 20] 20 meq PO DAILY@0600 08/18/15 10/27/18 History Pravastatin Sodium [Pravachol] 40 mg PO Q48H 08/18/15 10/27/18 History Furosemide [Lasix] 40 mg PO BID@0600,1400 06/11/17 10/27/18 History Diltiazem Oral [Cardizem*] 30 mg PO TID #0 06/17/17 10/27/18 Rx cloNIDine HCL [Catapres] 0.3 mg PO TID tab 06/17/17 10/27/18 Rx Acetaminophen [Acetaminophen ER] 650 mg PO Q4HR PRN 09/04/18 10/27/18 History Cyanocobalamin [Vitamin B-12 1,000 mg IM QMONTH 09/04/18 10/27/18 History Injection] Ferrous Sulfate [Feosol] 325 mg PO DAILY 09/04/18 10/27/18 History Magnesium Hydroxide [Milk of 2,400 ml PO DAILY PRN 09/04/18 10/27/18 History Magnesia] Memantine HCl [Namenda Xr] 28 mg PO DAILY 09/04/18 10/27/18 History traZODone HCL 25 mg PO HS 09/04/18 10/27/18 History Albuterol Nebulized [Ventolin 2.5 mg INHALATION RT-Q4H PRN 10/27/18 10/27/18 History Nebulized] Bisacodyl [Dulcolax] 10 mg RECTAL DAILY PRN 10/27/18 10/27/18 History Hydrocodone/Acetaminophen [[place] 1 tab PO Q6HR PRN 10/27/18 10/27/18 History 7.5-325] Losartan Potassium 100 mg PO DAILY 10/27/18 10/27/18 History Na Phos,M-B/Na Phos,Di-Ba [Fleet 133 ml RECTAL DAILY PRN 10/27/18 10/27/18 History Adult] Omeprazole [PriLOSEC] 20 mg PO DAILY@0600 10/27/18 10/27/18 History Potassium Chloride [Klor-Con 10] 10 meq PO DAILY@1400 10/27/18 10/27/18 History Allergies Allergy/AdvReac Type Severity Reaction Status Date / Time No Known Allergies Allergy Verified 10/27/18 13:59 Physical Exam Vitals: Vital Signs Temp Pulse Resp BP BP BP Pulse Ox 11/01/18 06:29 98 F 90 16 170/90 97 11/01/18 04:00 97 F L 70 16 120/64 97 11/01/18 00:00 97 F L 80 16 110/64 124/64 98 10/31/18 20:00 97.2 F L 88 16 98/50 98 10/31/18 16:00 98.2 F 91 22 185/86 10/31/18 14:06 176/90 10/31/18 12:00 94 22 187/88 10/31/18 11:00 220/110 10/31/18 09:48 198/110 10/31/18 09:22 97.6 F 99 22 232/120 94 L 10/31/18 08:00 99 22 Intake and Output 10/31/18 11/01/18 11/01/18 22:59 06:59 14:59 Intake Total 490 Output Total 600 Balance -110 Intake: IV 10 Invasive Line 2 10 Oral 480 Output: Urine 600 Other: Voiding Method Bedpan # Voids 1 1 Weight 89 kg General appearance: The patient is alert, oriented, in no acute distress. HET: Head is normocephalic and atraumatic. Pupils are equal and reactive. Oropharynx is clear however there appears to be some mild oral candidiasis present.. Neck: Supple without lymphadenopathy. Trachea midline. Heart: S1 S2. Regular rate and rhythm. Lungs: No crackles or wheezes are heard. Abdomen: Soft, nontender, nondistended with bowel sounds. No peritoneal signs. No palpable organomegaly or masses. Extremities: Normal skin color and turgor. No cyanosis, rash, ulceration, clubbing, or edema. Radial and pedal pulses are 2/4 bilaterally. Neurological: No focal deficits. Strength and sensation are grossly intact. Results CBC & Chem 7: 10/28/18 05:59 11/01/18 05:44 Labs: Abnormal Lab Results - Last 24 Hours (Table) 10/31/18 10/31/18 11/01/18 Range/Units 06:32 11:48 05:44 BUN 26 H 19 H (7-17) mg/dL Glucose 110 H 114 H (74-99) mg/dL POC Glucose (mg/dL) 174 H (75-99) mg/dL Assessment and Plan (1) Nausea Narrative/Plan: 73-year-old female underlying GERD mild dementia admitted with A. fib RVR CHF nausea with possible underlying oral candidiasis underlying esophageal candidiasis could not be excluded can tubing to her nausea. Presently her nausea is improved however she is receiving antinausea medications and GI p rophylaxis. Current Visit: Yes Status: Acute Code(s): R11.0 - NAUSEA SNOMED Code(s): 422700888 (2) GERD (gastroesophageal reflux disease) Current Visit: Yes Status: Acute Code(s): K21.9 - GASTRO-ESOPHAGEAL REFLUX DISEASE WITHOUT ESOPHAGITIS SNOMED Code(s): 891215079 (3) CHF exacerbation Current Visit: Yes Status: Acute Code(s): I50.9 - HEART FAILURE, UNSPECIFIED SNOMED Code(s): 635089011 (4) Atrial fibrillation with RVR Current Visit: Yes Status: Acute Code(s): I48.91 - UNSPECIFIED ATRIAL FIBRILLATION SNOMED Code(s): 301264958283975 Plan: 1. Zofran 4 mg every 6 hours. Change Protonix to IV 40 mg twice daily. Small meals spaced out. Nothing by mouth after midnight possible EGD evaluation tomorrow with Dr. King. Case was discussed with Dr. Hancock he will evaluate patient and decide if antifungal therapy should be started. We'll follow with you. Thank you for this kind referral and the opportunity to participate in the care of your patient. This consultation was discussed with Dr. King. The impression and plan of care have been directed as dictated.
[2018-11-01] MEDS: ONDANSETRON 4 MG/2 ML VIAL IVP SCH ×3 (11:32→23:15)
--- NOTE | 2018-11-01 13:25 | P.PN ---
Subjective Progress Note Date: 11/01/18 This is a pleasant 73-year-old female past medical history significant for dementia, hypertension, dyslipidemia, iron deficiency anemia and chronic persistent atrial fibrillation not on long-term anticoagulation secondary to progressive dementia and failure to comply. She follows in the office of Dr. Morales, however has not been in since 2016. We have been asked to see her in consultation secondary to atrial fibrillation with rapid ventricular response, hypertension and pleural effusion. She is seen and examined sitting up resting comfortably in bed in no acute distress. She states she presented to the hospital because she felt her heart flip flopping in her chest. There is some question regarding her dementia and confusion. Apparently the emergency department currently complaint was nausea. She denies any blood pressure on arrival was 206/133 and 203/111. She has been initiated on a Cardizem drip in the emergency department. Heart rates this morning 77 with a blood pressure of 117/67. 10/29/2018 Patient was seen and examined this morning, no complaints. Hemodynamically stable. Blood pressure 102/58 with a heart rate in the 60s, 94% on room air. Sodium 140, potassium 3.8, BUN 28 and creatinine 0.9. Echocardiogram with Doppler study was performed which revealed an ejection fraction of 55-60%, mild to moderate aortic valve sclerosis with mild aortic stenosis. 10/30/2018 Patientseen and examined today, no complaints, significant fluctuations in blood pressure noted, at 820 this morning her blood pressure was 188/90, at 9:00 this morning in the left arm 140/100, right arm 150/100. Then at 11 AM her pressure was documented to be 96/60. Once the patient has had her lunch today we will recheck her blood pressures, she does not stand, so we will check a lying and fully sitting up blood pressure in both arms and make medication adjustments accordingly. 10/31/2018 Patient was seen and examined this morning, complaining of feeling a generalized pain all over her body, very nauseated and quite confused. Blood pressure 187/88 with a heart rate in the 90s. Given a one-time dose of; nitro, as she was given her oral medications and she vomited. Once patient is to keep medication down we will give her antihypertensives. 11/01/2018 Patient seen and examined this morning overall feeling much better, sitting up in the chair at bedside. Hemodynamically stable. Objective - Vital Signs Vital signs: Vital Signs Temp 98.5 F 11/01/18 12:02 Pulse 99 11/01/18 12:02 Resp 16 11/01/18 12:02 BP 107/63 11/01/18 12:02 Pulse Ox 99 11/01/18 12:02 Intake & Output 10/31/18 11/01/18 11/01/18 18:59 06:59 18:59 Intake Total 520 Output Total 700 Balance -180 Weight 89 kg Intake: IV 40 Invasive Line 2 40 Oral 480 Output: Urine 700 Other: Voiding Method Bedpan Bedpan # Voids 1 - Exam GENERAL: This is a 73-year-old female in no apparent distress at the time of my examination. HEENT: Head is atraumatic, normocephalic. Pupils are equal, round. Sclerae anicteric. Conjunctivae are clear. Mucous membranes of the mouth are moist. Neck is supple. There is no jugular venous distention. No carotid bruit is heard. LUNGS: Clear to auscultation no wheezes, rales or rhonchi. No chest wall tenderness is noted on palpation or with deep breathing. HEART: Irregular rate and rhythm without murmurs, rubs or gallops. S1 and S2 heard. ABDOMEN: Soft, nontender. Bowel sounds are heard. No organomegaly noted. EXTREMITIES: Trace peripheral lower extremity non-pitting edema with chronic dryness and sloughing of skin. No calf tenderness noted. VASCULAR: Radial and dorsalis pedis pulses palpated, no evidence of clubbing. NEUROLOGIC: Patient is awake, alert and oriented x2. - Labs CBC & Chem 7: 10/28/18 05:59 11/01/18 05:44 Labs: Abnormal Lab Results - Last 24 Hours (Table) 11/01/18 Range/Units 05:44 BUN 19 H (7-17) mg/dL Glucose 114 H (74-99) mg/dL Assessment and Plan Plan: ASSESSMENT AND PLAN #1Atrial fibrillation with mildly rapid ventricular response. Chronic persistent. Not on long-term anticoagulation secondary to progressive dementia and noncompliance. #2Hypertension, uncontrolled on admission. #3Mild troponin elevation noted indicative of an acute coronary syndrome with no rise and fall pattern. No evidence of LV wall motion abnormality on echocardiogram. #4Dyslipidemia #5Leukocytosis Plan From cardiology's perspective, we'll recommend to continue the patient on her current medications. We will follow along with you now on an as-needed basis only, please don't hesitate to call with any questions. DNP note has been reviewed, I agree with a documented findings and plan of care. Patient was seen and examined.
[2018-11-01] MEDS ORDERED: FLUCONAZOLE 100 MG TAB PO ONE (14:30)
[2018-11-01] MEDS: traZODone HCL 50 MG TAB PO SCH (21:19)
--- NOTE | 2018-11-01 23:20 | PN ---
PROGRESS NOTE DATE OF SERVICE: 11/01/2018 PRESENTING COMPLAINT: Tired. INTERVAL HISTORY: Patient with advanced dementia presented with atrial fibrillation, uncontrolled CHF. Was also having nausea, which is much better today. Patient actually had a good breakfast. Sitting up in a chair. Overall feels better, relaxed. REVIEW OF SYSTEMS: Attempted for constitutional, cardiovascular, GI, pulmonary; relevant findings as above. CURRENT MEDICATIONS: Reviewed. They include IV ceftriaxone, p.o. Lasix. PHYSICAL EXAMINATION: Temperature 98.5, pulse 99, respiration 16, blood pressure 107/63, pulse ox 99% on room air. GENERAL APPEARANCE: Sitting up in a chair. Awake. More comfortable. EYES: Pupils equal. Conjunctivae normal. NECK: JVD not raised. Mass not palpable. RESPIRATORY: Effort normal. LUNGS: Fair air entry. CARDIOVASCULAR: First and second sounds normal. No edema. ABDOMEN: Soft, non-tender. PSYCHIATRY: Patient is able to answer simple questions. INVESTIGATIONS: Potassium 3.9, BUN 19, creatinine 0.83. ASSESSMENT: 1. Persistent atrial fibrillation with rapid rate on presentation, now controlled. 2. Right pleural effusion; could be from congestive heart failure. 3. Acute on chronic congestive heart failure from diastolic dysfunction, ejection fraction 50% to 55%, improved. 4. Major cognitive impairment from late-onset dementia. 5. Gastroesophageal reflux disease. 6. Hypertension. 7. Hyperlipidemia. 8. Primary osteoarthritis. 9. Troponin leak from congestive heart failure. 10.Persistent nausea, which is improving. 11.Acute urinary tract infection from cystitis. PLAN: Patient is due for EGD tomorrow. Clinically overall looking better. Will switch the patient over to Omnicef. MMODL / IJN: [id number] /
[2018-11-02] MEDS: ONDANSETRON 4 MG/2 ML VIAL IVP SCH ×3 (06:37→17:04)
[2018-11-02] MEDS: MAGNESIUM OXIDE 400 MG TAB PO SCH (08:46)
[2018-11-02] MEDS: CEFDINIR 300 MG CAP PO SCH ×2 (08:46→21:39)
[2018-11-02] MEDS: LOSARTAN 50 MG TAB PO SCH (08:46)
[2018-11-02] MEDS: PANTOPRAZOLE 40 MG/10 ML VIAL IVP SCH ×2 (08:47→21:39)
[2018-11-02] MEDS: cloNIDine HCL 0.1 MG TAB PO SCH ×3 (08:47→21:39)
[2018-11-02] MEDS: DILTIAZEM ORAL 60 MG TAB PO SCH ×3 (08:47→21:39)
[2018-11-02] MEDS: FUROSEMIDE 40 MG TAB PO SCH (08:47)
[2018-11-02] MEDS: POTASSIUM CHLORIDE ER 20 MEQ TAB.ER PO SCH (08:47)
[2018-11-02] MEDS: FLUCONAZOLE 100 MG TAB PO SCH (08:47)
--- NOTE | 2018-11-02 10:46 | P.PN ---
Subjective Progress Note Date: 11/02/18 Principal diagnosis: Nausea 73-year-old female with underlying dementia A. fib RVR with reported nausea. Patient receiving treatment for oral candidiasis. Nausea is improving. Objective - Vital Signs Vital signs: Vital Signs Temp 98.3 F 11/02/18 05:30 Pulse 89 11/02/18 08:53 Resp 16 11/02/18 08:53 BP 129/81 11/02/18 08:53 Pulse Ox 98 11/02/18 08:53 Intake & Output 11/01/18 11/02/18 11/02/18 18:59 06:59 18:59 Intake Total 330 440 Output Total 850 400 Balance -520 440 -400 Weight 86 kg Intake: Oral 330 440 Output: Urine 850 400 Other: Voiding Method Bedpan Bedpan # Voids 1 - Exam General appearance: The patient is alert, oriented, in no acute distress. HET: Head is normocephalic and atraumatic. Pupils are equal and reactive. Oropharynx is oral candidiasis. Neck: Supple without lymphadenopathy. Trachea midline. Heart: S1 S2. Regular rate and rhythm. Lungs: No crackles or wheezes are heard. Abdomen: Soft, nontender, nondistended with bowel sounds. No peritoneal signs. No palpable organomegaly or masses. Extremities: Normal skin color and turgor. No cyanosis, rash, ulceration, clubbing, or edema. Radial and pedal pulses are 2/4 bilaterally. Neurological: No focal deficits. Strength and sensation are grossly intact. - Labs CBC & Chem 7: 10/28/18 05:59 11/01/18 05:44 Assessment and Plan (1) Nausea Narrative/Plan: 73-year-old female underlying GERD mild dementia admitted with A. fib RVR CHF nausea with possible underlying oral candidiasis underlying esophageal candidiasis could not be excluded can tubing to her nausea. Presently her nause a is improved however she is receiving antinausea medications and GI prophylaxis. Current Visit: Yes Status: Acute Code(s): R11.0 - NAUSEA SNOMED Code(s): 050766547 (2) GERD (gastroesophageal reflux disease) Current Visit: Yes Status: Acute Code(s): K21.9 - GASTRO-ESOPHAGEAL REFLUX DISEASE WITHOUT ESOPHAGITIS SNOMED Code(s): 219130598 (3) CHF exacerbation Current Visit: Yes Status: Acute Code(s): I50.9 - HEART FAILURE, UNSPECIFIED SNOMED Code(s): 055228320 (4) Atrial fibrillation with RVR Current Visit: Yes Status: Acute Code(s): I48.91 - UNSPECIFIED ATRIAL FIBRILLATION SNOMED Code(s): 405970862307495 (5) Oral candidiasis Current Visit: Yes Status: Acute Code(s): B37.0 - CANDIDAL STOMATITIS SNOMED Code(s): 84111330 Plan: 1. Patient is receiving Diflucan for oral candidiasis, oropharyngeal esophageal candidiasis can not be excluded. EGD scheduled for tomorrow morning. Cardiac diet today. Nothing by mouth after midnight. We'll continue to follow with you. The credit verifier has discussed the risks, benefits and alternative therapies for the above-mentioned procedure and for both sedation/analgesia as well as necessary blood product administration, if indicated, as they pertain to this patient. The patient has indicated understanding and acceptance of the risks and procedures discussed. Assessment plan a care discussed with Dr. King
[2018-11-02 13:51] VITALS: BMI 32.5
[2018-11-02] MEDS: traZODone HCL 50 MG TAB PO SCH (21:39)
--- NOTE | 2018-11-02 23:50 | PN ---
PROGRESS NOTE DATE OF SERVICE: 11/02/2018 PRESENTING COMPLAINT: Tired. INTERVAL HISTORY: Patient has advanced dementia present, atrial fibrillation, uncontrolled CHF. Also having nausea. Nausea is much improved. Awaiting the EGD. Otherwise patient is stable. REVIEW OF SYSTEMS: Done for constitutional, cardiovascular, GI, pulmonary; relevant findings as above. CURRENT MEDICATIONS: Reviewed that include Protonix. PHYSICAL EXAMINATION: VITAL SIGNS: Temperature 98.4, pulse 102, respiration 16, blood pressure 120/78, pulse ox 98% on room air. GENERAL APPEARANCE: Sitting up, comfortable. EYES: Pupils equal. Conjunctivae normal. NECK: JVD not raised. Mass not palpable. RESPIRATORY: Effort normal. LUNGS: Fair air entry. CARDIOVASCULAR: Heart sounds irregular. No edema. ABDOMEN: Soft, nontender. Liver and spleen not palpable. PSYCHIATRY: Awake, answering simple questions. INVESTIGATIONS: Potassium 3.9, BUN 19, creatinine 0.83. ASSESSMENT: 1. Persistent atrial fibrillation rapid ventricular rate on presentation now better controlled. 2. Right pleural effusion from congestive heart failure. 3. Acute on chronic congestive heart failure from diastolic dysfunction. Ejection fraction 50-55 percent, much improved. 4. Major cognitive impairment from late onset dementia. 5. Gastroesophageal reflux disease. 6. Hypertension. 7. Hyperlipidemia. 8. Primary osteoarthritis. 9. Troponin leak from congestive heart failure. 10.Persistent nausea, much improved. 11.Acute urinary tract infection from cystitis. PLAN: Patient overall doing much better. Awaiting EGD. Other medication and treatment plan to continue. Should be able to go to the [facility] tomorrow. MMODL / IJN: [id number] /
[2018-11-03] MEDS: ONDANSETRON 4 MG/2 ML VIAL IVP SCH ×3 (01:44→11:04)
[2018-11-03] MEDS ORDERED: LACTATED RINGERS 1,000 ML IV SCH (05:49)
[2018-11-03] MEDS ORDERED: LIDOCAINE 1% 20 ML VIAL (10MG/ML) FOR IV START INTRADERMA PRN (05:49)
[2018-11-03] MEDS ORDERED: PROPOFOL 10 MG/ML 20 ML VIAL IV ONE (08:09)
[2018-11-03] MEDS ORDERED: IV FLUID CONTINUATION 950 ML IV ONE (08:09)
[2018-11-03] MEDS ORDERED: LIDOCAINE 1% INJ 10MG/ML (20 ML MDV) ONE (08:09)
--- NOTE | 2018-11-03 08:22 | P.PCN ---
Date of Procedure: 11/03/18 Procedure(s) Performed: BRIEF HISTORY: Patient is a 73-year-old, pleasant, , scheduled for an upper endoscopy as a part of evaluation of chronic persistent nausea of several days duration. History of gastric bypass surgery many years ago. PROCEDURE PERFORMED: Esophagogastroduodenoscopy with biopsy . PREOPERATIVE DIAGNOSIS: chronic persistent nausea \ IV sedation per anesthesia. PROCEDURE: After informed consent was obtained, the patient was brought into the endoscopy unit. IV sedation was administered by Anesthesia under continuous monitoring. Initially the Olympus GIF-140 video endoscope was inserted into the mouth. Esophagus intubated without any difficulty. It was gradually advanced into the stomach . There was evidence of previous gastric bypass surgery with Lacey-en-Y anastomosis noted and appeared normal. The afferent and efferent loops appeared normal. The scope was then withdrawn into the gastric pouch was mild gastritis noted which was biopsied. There were no ulcerations identified. The scope was then withdrawn into the esophagus. The GE junction was located at 39 cm from the incisors. The esophagus appeared normal. There were no erosions or ulcerations seen and the patient tolerated the procedure well. IMPRESSION: 1. Evidence of previous gastric bypass surgery with Lacey-en-Y anastomosis 2. Mild gastritis of the gastric pouch.. RECOMMENDATIONS: The findings of this examination were discussed with the patient. She was advised to follow with the biopsy results and continue antiemetics as needed
[2018-11-03] MEDS: PRAVASTATIN SODIUM 40 MG TAB PO SCH (09:02)
[2018-11-03] MEDS: FUROSEMIDE 40 MG TAB PO SCH (09:02)
[2018-11-03] MEDS: CEFDINIR 300 MG CAP PO SCH (09:02)
[2018-11-03] MEDS: FLUCONAZOLE 100 MG TAB PO SCH (09:02)
[2018-11-03] MEDS: DILTIAZEM ORAL 60 MG TAB PO SCH (09:02)
[2018-11-03] MEDS: LOSARTAN 50 MG TAB PO SCH (09:02)
[2018-11-03] MEDS: PANTOPRAZOLE 40 MG/10 ML VIAL IVP SCH (09:02)
[2018-11-03] MEDS: POTASSIUM CHLORIDE ER 20 MEQ TAB.ER PO SCH (09:02)
[2018-11-03] MEDS: cloNIDine HCL 0.1 MG TAB PO SCH (09:06)
[2018-11-03] MEDS: MAGNESIUM OXIDE 400 MG TAB PO SCH (09:07)
[2018-11-03 10:12] VITALS: BP 202/102; PULSE 89; RESP 20; TEMP 97.7
--- NOTE | 2018-11-03 12:32 | DS ---
DISCHARGE SUMMARY DATE OF ADMISSION: 10/27/2018 DATE OF DISCHARGE: 11/03/2018 FINAL DIAGNOSES: 1. Persistent atrial fibrillation rapid ventricular rate on presentation. 2. Right pleural effusion from congestive heart failure. 3. Acute on chronic congestive heart failure from diastolic dysfunction, ejection fraction 50% to 55%, present on admission. 4. Major cognitive impairment from late onset Alzheimer's dementia. 5. Gastroesophageal reflux disease. 6. Essential hypertension. 7. Hyperlipidemia. 8. Primary osteoarthritis. 9. Troponin leak from congestive heart failure, not acute coronary syndrome. 10.Persistent nausea, probably from gastritis, improved. 11.Acute urinary tract infection from cystitis. 12.History of gastric bypass surgery with Lacey-en-Y anastomosis. 13.Oral candidiasis. CONSULTATIONS: Dr. Radha King from GI; Dr. Lorenzo Uribe from Cardiology. PROCEDURE: EGD. HOSPITAL COURSE: This patient presented with heart racing, nausea, was in atrial fibrillation. Heart rate was eventually controlled with current medications. Nausea eventually did settle down. EGD showed evidence of gastritis and history of prior Lacey-en-Y gastric bypass surgery. Otherwise, patient tolerating a diet, comfortable. Patient did have a 2-D echocardiogram that showed EF 55% to 60%. On examination, temperature 97.7, pulse 89, respiration 20, blood pressure 128/72 earlier today. LABS: Potassium 3.9. BUN 19, creatinine 0.83. DISCHARGE MEDICATIONS: 1. Magnesium oxide 400 mg p.o. daily. 2. Pravachol 40 mg q.48 hours. 3. Catapres 0.3 mg p.o. t.i.d. 4. Tylenol 650 mg q.4 p.r.n. 5. Vitamin B12, 1000 IM every month. 6. Iron 325 p.o. daily. 7. Milk of Magnesia 2400 mL daily p.r.n. 8. Trazodone 25 mg at bedtime. 9. Ventolin 2.5 q.4 p.r.n. 10.Dulcolax 10 mg rectal daily p.r.n. 11.Losartan 100 mg p.o. daily. 12.Potassium 10 mEq p.o. daily. 13.Omnicef 300 mg p.o. b.i.d., 6 capsules. 14.Cardizem 60 mg p.o. t.i.d. 15.Diflucan 100 mg p.o. daily for 7 days. 16.Lasix 40 mg p.o. daily. 17.[place] 7.5 one tablet q.6 p.r.n. 18.Prilosec 20 mg b.i.d. DISPOSITION: [facility]. CODE STATUS: DO NOT RESUSCITATE. Follow up with Dr. Ashby and also follow up with Dr. Lorenzo Uribe in 2 weeks. MMODL / IJN: [id number] /
[2018-11-03] MEDS ORDERED: PANTOPRAZOLE 40 MG TABLET PO SCH (21:00)
== END 2018-11-03 14:14 | DRG 308 ==
LOC: EC 13:02 → 3SCARD 16:19 → 4MS4W 11-03 09:43
PROVIDERS: ADMIT Hospitalist; ATTEND Hospitalist
PROC: 0DB68ZX Excision of Stomach, Via Natural or Artificial Opening Endoscopic, Diagnostic (ICD-10-PCS; principal; 2018-11-03 07:00)
DX: I48.1 Persistent atrial fibrillation (principal); I50.33 Acute on chronic diastolic (congestive) heart failure; B37.0 Candidal stomatitis; I24.9 Acute ischemic heart disease, unspecified; K29.50 Unspecified chronic gastritis without bleeding; I11.0 Hypertensive heart disease with heart failure; M19.91 Primary osteoarthritis, unspecified site; E78.5 Hyperlipidemia, unspecified; N30.90 Cystitis, unspecified without hematuria; E66.9 Obesity, unspecified; I27.20 Pulmonary hypertension, unspecified; K21.9 Gastro-esophageal reflux disease without esophagitis; Z96.651 Presence of right artificial knee joint; F02.80 Dementia in other diseases classified elsewhere, unspecified severity, without behavioral disturbance, psychotic disturbance, mood disturbance, and anxiety; I35.8 Other nonrheumatic aortic valve disorders; G30.1 Alzheimer's disease with late onset; Z66 Do not resuscitate; Z86.14 Personal history of Methicillin resistant Staphylococcus aureus infection; Z90.710 Acquired absence of both cervix and uterus; Z90.89 Acquired absence of other organs; Z82.49 Family history of ischemic heart disease and other diseases of the circulatory system; Z98.84 Bariatric surgery status; Z79.01 Long term (current) use of anticoagulants; Z79.899 Other long term (current) drug therapy
CPT/HCPCS: 36415; 43239; 71046; 74018; 80048; 80053; 81001; 82150; 82550; 83690; 83880; 84443; 84484; 85025; 85610; 85730; 88305; 93005; 93306; 94640; 96361; 96374; 96375; 96376; 99291

== ENCOUNTER 2018-11-04 22:21 | Emergency (ER) | payer MEDICARE, OTHER ==
[2018-11-04 23:18] VITALS: RESP 18
[2018-11-04 23:25] LABS: Appearance,Urine Cloudy (Clear); Bilirubin,Urine Negative (Negative); Blood,Urine Negative (Negative); Color,Urine Yellow; Glucose,Urine (UA) Negative (Negative); Hyaline Casts,Urine 74 /lpf (0-2); Ketones,Urine Trace (Negative); Leukocyte Esterase,Urine Moderate (Negative); Mucus,Urine Rare /hpf; Nitrite,Urine Negative (Negative); Protein,Urine Trace (Negative); RBC,Urine 3 /hpf (0-5); Specific Gravity,Urine 1.026 (1.001-1.035); Squamous Epithelial Cell,Urine 2 /hpf (0-4); WBC,Urine 27 /hpf (0-5)
--- NOTE | 2018-11-05 00:27 | ED ---
General Adult HPI - General Chief complaint: Recheck/Abnormal Lab/Rx Stated complaint: Hypotension Source: patient, EMS Mode of arrival: EMS Limitations: no limitations - History of Present Illness Initial comments: Makeda 73-year-old female sent to the emergency department today by EMS from [facility] for evaluation of low blood pressure. Per caregivers at their facility they've noted the patient's blood pressures in the 80s over 60s 2 times today patient's currently being treated for urinary tract infection with oral antibiotics they're concerned she may be becoming septic social they advised to come to ER for evaluation. Patient reports she's been feeling well she has no complaints and she doesn't know why she had to come to the ER. Reports the blood pressure was 112 over 80s an [id number] patient was afebrile not tachycardic with no complaints. - Related Data Home Medications Medication Instructions Recorded Confirmed Magnesium Oxide [Mag-Ox] 400 mg PO DAILY 08/18/15 10/27/18 Pravastatin Sodium [Pravachol] 40 mg PO Q48H 08/18/15 10/27/18 Acetaminophen [Acetaminophen ER] 650 mg PO Q4HR PRN 09/04/18 10/27/18 Cyanocobalamin [Vitamin B-12 1,000 mg IM QMONTH 09/04/18 10/27/18 Injection] Ferrous Sulfate [Feosol] 325 mg PO DAILY 09/04/18 10/27/18 Magnesium Hydroxide [Milk of 2,400 ml PO DAILY PRN 09/04/18 10/27/18 Magnesia] traZODone HCL 25 mg PO HS 09/04/18 10/27/18 Albuterol Nebulized [Ventolin 2.5 mg INHALATION RT-Q4H PRN 10/27/18 10/27/18 Nebulized] Bisacodyl [Dulcolax] 10 mg RECTAL DAILY PRN 10/27/18 10/27/18 Losartan Potassium 100 mg PO DAILY 10/27/18 10/27/18 Potassium Chloride [Klor-Con 10] 10 meq PO DAILY@1400 10/27/18 10/27/18 Previous Rx's Medication Instructions Recorded cloNIDine HCL [Catapres] 0.3 mg PO TID tab 06/17/17 Cefdinir [Omnicef] 300 mg PO BID #6 cap 11/03/18 Diltiazem Oral [Cardizem*] 60 mg PO TID tab 11/03/18 Fluconazole [Diflucan] 100 mg PO DAILY #7 tab 11/03/18 Furosemide [Lasix] 40 mg PO DAILY #0 11/03/18 Hydrocodone/Acetaminophen [[place] 1 tab PO Q6HR PRN #12 tablet 11/03/18 7.5-325] Omeprazole [PriLOSEC] 20 mg PO BID #0 11/03/18 Allergies Allergy/AdvReac Type Severity Reaction Status Date / Time No Known Allergies Allergy Verified 11/04/18 22:37 Review of Systems ROS Statement: Those systems with pertinent positive or pertinent negative responses have been documented in the HPI. ROS Other: All systems not noted in ROS Statement are negative. Past Medical History Past Medical History: Atrial Fibrillation, Dementia, GERD/Reflux, Hyperlipidem ia, Hypertension, Memory Impairment, Pneumonia Additional Past Medical History / Comment(s): IRON DEFICIENCY, ANEMIA, SPONDYLOPATHY, CERVICAL REGION, DEGEN. DISC DX,CERVICAL AREA., FX 6TH CERVICAL VERTEBRAE, FX RT FEMUR,INTESTINAL BYPASS AND ANASTOMOSIS STATUS, interstitial lung disease History of Any Multi-Drug Resistant Organisms: MRSA Date of last positivie culture/infection: 09/04/18 MDRO Source:: LEG Past Surgical History: Hysterectomy, Joint Replacement, Tonsillectomy Additional Past Surgical History / Comment(s): rt knee replacement; gastric bypass Past Anesthesia/Blood Transfusion Reactions: No Reported Reaction Past Psychological History: Depression Smoking Status: Never smoker Past Alcohol Use History: None Reported Past Drug Use History: None Reported - Past Family History Father History Unknown: Yes Mother Additional Family Medical History / Comment(s): Rheumatic fever, htn, pneumonia, sepsis General Exam - General Exam Comments Initial Comments: Physical Exam GENERAL: Patient is well-developed and well-nourished. Patient is nontoxic and well-hydrated and is in no distress. HENT: Normocephalic, Atraumatic. EYES: PERRL, EOMI PULMONARY: Unlabored respirations. CARDIOVASCULAR: RRR ABDOMEN: Soft and nontender with normal bowel sounds. SKIN: Skin is clear with no lesions or rashes and otherwise unremarkable. : Deferred NEUROLOGIC: Patient is alert and oriented x3. Moving all extremities spontaneously MUSCULOSKELETAL: Normal extremities with adequate strength and full range of motion. No lower extremity swelling or edema. No calf tenderness. PSYCHIATRIC: Situational agitation Limitations: no limitations Course Vital Signs 11/04/18 11/04/18 11/04/18 22:28 22:30 22:50 Temperature 97.2 F L Pulse Rate 66 Respiratory 20 Rate Blood Pressure 112/69 112/69 126/74 O2 Sat by Pulse 97 96 96 Oximetry 11/04/18 11/04/18 11/04/18 23:16 23:20 23:50 Temperature Pulse Rate 77 Respiratory 18 Rate Blood Pressure 117/80 117/80 106/69 O2 Sat by Pulse 97 96 97 Oximetry 11/05/18 01:31 Temperature 97.8 F Pulse Rate 79 Respiratory 18 Rate Blood Pressure 118/74 O2 Sat by Pulse 97 Oximetry Medical Decision Making - Medical Decision Making The patient was seen and evaluated history is obtained from the patient, EMS and caregivers at [facility] Per [facility] caregivers patient was hypotensive, blood pressure for EMS and us was not hypotensive patient had no complaints repeat urine with urine culture was obtained Patient remained hemodynamic stable without complaint patient was discharged back to [facility] for continued management with oral antibiotics - Lab Data Lab Results 11/04/18 Range/Units 23:11 Urine Color Yellow Urine Appearance Cloudy H (Clear) Urine pH 5.0 (5.0-8.0) Ur Specific [place] 1.026 (1.001-1.035) Urine Protein Trace H (Negative) Urine Glucose (UA) Negative (Negative) Urine Ketones Trace H (Negative) Urine Blood Negative (Negative) Urine Nitrite Negative (Negative) Urine Bilirubin Negative (Negative) Urine Urobilinogen 3.0 (<2.0) mg/dL Ur Leukocyte Esterase Moderate H (Negative) Urine RBC 3 (0-5) /hpf Urine WBC 27 H (0-5) /hpf Ur Squamous Epith Cells 2 (0-4) /hpf Hyaline Casts 74 H (0-2) /lpf Urine Mucus Rare H (None) /hpf Disposition Clinical Impression: UTI (urinary tract infection) Disposition: HOME SELF-CARE Condition: Stable Instructions (If sedation given, give patient instructions): Urinary Tract Infection in Women (DC) Additional Instructions: Continue your oral antibiotics for urinary tract infection. Is patient prescribed a controlled substance at d/c from ED?: No Referrals: Srikanth Ashby MD [Primary Care Provider] - 1-2 days
[2018-11-05 01:32] VITALS: BP 118/74; PULSE 79; TEMP 97.8
== END 2018-11-05 02:15 | disposition home or self-care (01) ==
LOC: EC 22:21
DX: N39.0 Urinary tract infection, site not specified (principal); F32.9 Major depressive disorder, single episode, unspecified; I48.91 Unspecified atrial fibrillation; I10 Essential (primary) hypertension; E78.5 Hyperlipidemia, unspecified; K21.9 Gastro-esophageal reflux disease without esophagitis; Z79.899 Other long term (current) drug therapy; Z98.84 Bariatric surgery status; Z96.651 Presence of right artificial knee joint; Z86.14 Personal history of Methicillin resistant Staphylococcus aureus infection
CPT/HCPCS: 81001; 87086; 99285

== ENCOUNTER 2019-01-26 10:39 | Emergency (ER) | payer MEDICARE ==
[2019-01-26] MEDS ORDERED: ONDANSETRON 4 MG/2 ML VIAL IVP STA (11:16)
--- NOTE | 2019-01-26 11:17 | ED ---
General Adult HPI - General Chief complaint: Nausea/Vomiting/Diarrhea Stated complaint: Hypertension Time Seen by Provider: 01/26/19 10:45 Source: EMS Mode of arrival: EMS Limitations: physical limitation - History of Present Illness Initial comments: Dictation was produced using [employer] dictation software. please excuse any grammatical, word or spelling errors. Chief Complaint: 73-year-old female sent in from [facility] for hypertension and nausea. History of Present Illness: Patient is a 73-year-old female she has past medical history of Alzheimer's dementia and hypertension. She was sent here from [facility] for hypertension and nausea. Patient was found have elevated blood pressures prompting transfer to emergency department. She doesn't unreliable historian. She does complain of some nausea and abdominal pain. She does report that her symptoms were only today. She does not know when her last bowel movement was. The ROS documented in this emergency department record has been reviewed and confirmed by me. Those systems with pertinent positive or negative responses have been documented in the HPI. All other systems are other negative and/or noncontributory. PHYSICAL EXAM: General Impression: Alert and oriented x3/4, not in acute distress HEENT: Normocephalic atraumatic, extra-ocular movements intact, pupils equal and reactive to light bilaterally, mucous membranes moist. Cardiovascular: Heart regular rate and rhythm, S1&S2 audible, no murmurs, rubs or gallops Chest: Lungs clear to auscultation bilaterally, no rhonchi, no wheeze, no rales Abdomen: Bowel sounds present, palpable mass in the suprapubic area Musculoskeletal: Pulses present and equal in all extremities, no peripheral edema Motor: no focal deficits noted Neurological: CN II-XII grossly intact, no focal motor or sensory deficits noted Skin: Intact with no visualized rashes Psych: Normal affect and mood ED course: 73-year-old female transferred to the emergency department for hypertension and nausea. Patient given 4 mg of Zofran. Patient has palpable mass with abdominal examination. Patient is unreliable historian given past medical history of dementia. She is otherwise well-appearing. Ends upon arrival shows blood pressure 179/85, rest of vital signs within acceptable limits. Patient does have a history of hypertension for which she takes multiple antihypertensive medications. Patient given Zofran. Laboratory evaluation obtained. CBC, coag panel, metabolic panel is unremarkable. Abdominal x-rays with chest x-ray was performed showing no acute processes. Abdomen is soft nontender. There is a double bubble mass. Discussed endometriosis is a fibroid. No corresponding findings seen on imaging studies. It is likely chronic. Patient had a bowel movement on the commode. She is tolerating by mouth at bedside. Patient's well-appearing. Vital signs are stable. Patient to follow-up with primary care physician for outpatient management of elevated blood pressure. Since elevated blood pressures likely secondary to asymptomatic hypertension. no concerns for hypertensive emergency. EKG interpretation: Ventricular rate 81, atrial fibrillation, care is 96, QTC 462. No WI prolongation, no QTC prolongation, no ST or T-wave changes noted. EKG compared to 10/27/2018 showing no changes. Overall, this EKG is unremarkable - Related Data Home Medications Medication Instructions Recorded Confirmed Pravastatin Sodium [Pravachol] 40 mg PO Q48H 08/18/15 01/26/19 Cyanocobalamin [Vitamin B-12 1,000 mg IM QMONTH 09/04/18 01/26/19 Injection] Ferrous Sulfate [Feosol] 325 mg PO DAILY 09/04/18 01/26/19 Magnesium Hydroxide [Milk of 2,400 ml PO DAILY PRN 09/04/18 01/26/19 Magnesia] traZODone HCL 25 mg PO HS 09/04/18 01/26/19 Albuterol Nebulized [Ventolin 2.5 mg INHALATION RT-Q4H PRN 10/27/18 01/26/19 Nebulized] Bisacodyl [Dulcolax] 10 mg RECTAL DAILY PRN 10/27/18 01/26/19 Losartan Potassium 100 mg PO DAILY 10/27/18 01/26/19 Acetaminophen Tab [Tylenol Tab] 650 mg PO Q4H PRN 01/26/19 01/26/19 Apixaban [Eliquis] 2.5 mg PO BID 01/26/19 01/26/19 Colloidal Oatmeal [Eucerin Eczema 1 applic TOPICAL HS 01/26/19 01/26/19 Relief] Furosemide [Lasix] 40 mg PO BID@0900,1500 01/26/19 01/26/19 Magnesium Oxide 400 mg PO DAILY 01/26/19 01/26/19 Mylanta Ds 30 ml PO Q4H PRN 01/26/19 01/26/19 Ondansetron HCl [Zofran] 4 mg PO DAILY PRN 01/26/19 01/26/19 Povidone-Iodine [Betadine] 1 applic TOPICAL HS 01/26/19 01/26/19 Soothe & Cool Powder 1 applic TOPICAL BID 01/26/19 01/26/19 Spironolactone [Aldactone] 25 mg PO DAILY 01/26/19 01/26/19 cloNIDine HCL [Catapres] 0.1 mg PO TID 01/26/19 01/26/19 Previous Rx's Medication Instructions Recorded Diltiazem Oral [Cardizem*] 60 mg PO TID tab 11/03/18 Hydrocodone/Acetaminophen [[place] 1 tab PO Q6HR PRN #12 tablet 11/03/18 7.5-325] Omeprazole [PriLOSEC] 20 mg PO BID #0 11/03/18 Allergies Allergy/AdvReac Type Severity Reaction Status Date / Time No Known Allergies Allergy Verified 01/26/19 11:25 Review of Systems ROS Statement: Those systems with pertinent positive or pertinent negative responses have been documented in the HPI. ROS Other: All systems not noted in ROS Statement are negative. Past Medical History Past Medical History: Atrial Fibrillation, Dementia, GERD/Reflux, Hyperlipidemia, Hypertension, Memory Impairment, Pneumonia Additional Past Medical History / Comment(s): IRON DEFICIENCY, ANEMIA, SPONDYLOPATHY, CERVICAL REGION, DEGEN. DISC DX,CERVICAL AREA., FX 6TH CERVICAL VERTEBRAE, FX RT FEMUR,INTESTINAL BYPASS AND ANASTOMOSIS STATUS, interstitial lung disease History of Any Multi-Drug Resistant Organisms: MRSA Date of last positivie culture/infection: 09/04/18 MDRO Source:: LEG Past Surgical History: Hysterectomy, Joint Replacement, Tonsillectomy Additional Past Surgical History / Comment(s): rt knee replacement; gastric bypass Past Anesthesia/Blood Transfusion Reactions: No Reported Reaction Past Psychological History: Depression Smoking Status: Never smoker Past Alcohol Use History: None Reported Past Drug Use History: None Reported - Past Family History Father History Unknown: Yes Mother Additional Family Medical History / Comment(s): Rheumatic fever, htn, pneumonia, sepsis General Exam Limitations: physical limitation Course Vital Signs 01/26/19 10:42 Temperature 98 F Pulse Rate 81 Respiratory 16 Rate Blood Pressure 179/85 O2 Sat by Pulse 97 Oximetry Medical Decision Making - Lab Data Result diagrams: 01/26/19 11:10 01/26/19 11:10 Lab Results 01/26/19 01/26/19 01/26/19 Range/Units 11:10 11:10 11:10 WBC 9.3 (3.8-10.6) k/uL RBC 4.42 (3.80-5.40) m/uL Hgb 13.3 (11.4-16.0) gm/dL Hct 41.1 (34.0-46.0) % MCV 92.9 (80.0-100.0) fL MCH 30.2 (25.0-35.0) pg MCHC 32.5 (31.0-37.0) g/dL RDW 14.8 (11.5-15.5) % Plt Count 212 (150-450) k/uL Neutrophils % 90 % Lymphocytes % 6 % Monocytes % 3 % Eosinophils % 0 % Basophils % 0 % Neutrophils # 8.4 H (1.3-7.7) k/uL Lymphocytes # 0.6 L (1.0-4.8) k/uL Monocytes # 0.3 (0-1.0) k/uL Eosinophils # 0.0 (0-0.7) k/uL Basophils # 0.0 (0-0.2) k/uL PT 10.0 (9.0-12.0) sec INR 0.9 (<1.2) Sodium 141 (137-145) mmol/L Potassium 3.9 (3.5-5.1) mmol/L Chloride 104 (98-107) mmol/L Carbon Dioxide 25 (22-30) mmol/L Anion Gap 12 mmol/L BUN 17 (7-17) mg/dL Creatinine 0.87 (0.52-1.04) mg/dL Est GFR (CKD-EPI)AfAm 76 (>60 ml/min/1.73 sqM) Est GFR (CKD-EPI)NonAf 66 (>60 ml/min/1.73 sqM) Glucose 162 H (74-99) mg/dL Calcium 10.2 (8.4-10.2) mg/dL Magnesium 2.0 (1.6-2.3) mg/dL Disposition Clinical Impression: Hypertension, Nausea Disposition: HOME SELF-CARE Condition: Good Instructions (If sedation given, give patient instructions): Acute Nausea and Vomiting (ED) Is patient prescribed a controlled substance at d/c from ED?: No Referrals: Srikanth Ashby MD [Primary Care Provider] - 1-2 days Time of Disposition: 12:34
[2019-01-26 11:39] LABS: Basophils % (A) 0 %; Eosinophils % (A) 0 %; HCT 41.1 % (34.0-46.0); HGB 13.3 gm/dL (11.4-16.0); Lymphocytes # (A) 0.6 k/uL (1.0-4.8); Lymphocytes % (A) 6 %; MCH 30.2 pg (25.0-35.0); MCHC 32.5 g/dL (31.0-37.0); MCV 92.9 fL (80.0-100.0); Mean Platelet Volume 9.6; Monocytes # (A) 0.3 k/uL (0-1.0); Monocytes % (A) 3 %; Neutrophils # (A) 8.4 k/uL (1.3-7.7); Neutrophils % (A) 90 %; Platelet Count 212 k/uL (150-450); RBC 4.42 m/uL (3.80-5.40); RDW 14.8 % (11.5-15.5); WBC 9.3 k/uL (3.8-10.6)
--- NOTE | 2019-01-26 11:40 | XR ---
EXAMINATION TYPE: XR abdomen 1V DATE OF EXAM: 01/26/2019 COMPARISON: 10/27/2018 HISTORY: Pain TECHNIQUE: One view abdominal series FINDINGS: The osseous structures are intact. The bowel gas pattern is nonspecific. Postsurgical changes and di ffuse osteopenia noted. Arthropathy of the hips. Postsurgical change involving the iliac wings. Calci fications in the pelvis are nonspecific. IMPRESSION: 1. Nonspecific abdomen. No diagnostic evidence of obstruction.
--- NOTE | 2019-01-26 11:41 | XR ---
EXAMINATION TYPE: XR chest 2V DATE OF EXAM: 01/26/2019 COMPARISON: 10/29/2018 TECHNIQUE: PA and lateral views submitted. HISTORY: Pain FINDINGS: Elevation the right hemidiaphragm with subsegmental basilar consolidation and pleural thickening or t iny effusion. Heart is stable in size. Arthropathy of the shoulders with diffuse osteopenia. Correlat e for calcific tendinosis on the right. Atherosclerotic change aorta. No pneumothorax. Hypertrophic a nd degenerative change of the spine. IMPRESSION: 1. Persistent elevated right hemidiaphragm with basilar atelectasis or infiltrate correlate clinicall y.
[2019-01-26 11:49] LABS: Calcium 10.2 mg/dL (8.4-10.2); Potassium 3.9 mmol/L (3.5-5.1)
[2019-01-26 12:20] LABS: INR 0.9 (<1.2)
[2019-01-26 13:30] VITALS: BP 160/89; PULSE 77; RESP 18; TEMP 98
== END 2019-01-26 13:31 | disposition home or self-care (01) ==
LOC: EC 10:39
DX: I10 Essential (primary) hypertension (principal); N80.9 Endometriosis, unspecified; G30.9 Alzheimer's disease, unspecified; F02.80 Dementia in other diseases classified elsewhere, unspecified severity, without behavioral disturbance, psychotic disturbance, mood disturbance, and anxiety; I48.91 Unspecified atrial fibrillation; E78.5 Hyperlipidemia, unspecified; D50.9 Iron deficiency anemia, unspecified; F32.9 Major depressive disorder, single episode, unspecified; Z79.899 Other long term (current) drug therapy; Z79.01 Long term (current) use of anticoagulants; Z87.01 Personal history of pneumonia (recurrent); Z96.651 Presence of right artificial knee joint; Z98.84 Bariatric surgery status; Z86.14 Personal history of Methicillin resistant Staphylococcus aureus infection
CPT/HCPCS: 36415; 93005; 80048; 83735; 85025; 85610; 71046; 74018; 96374; 99284; J2405

== ENCOUNTER 2019-01-27 15:04 | Inpatient (IN) | payer MEDICARE ==
[2019-01-27] MEDS ORDERED: DILTIAZEM ORAL 60 MG TAB PO STA (15:24)
[2019-01-27] MEDS ORDERED: SODIUM CHLORIDE 0.9% 1,000 ML IV STA (15:24)
[2019-01-27] MEDS ORDERED: METOCLOPRAMIDE 5 MG/ML 2 ML VIAL IVP STA (15:24)
--- NOTE | 2019-01-27 15:29 | ED ---
General Adult HPI - General Chief complaint: Nausea/Vomiting/Diarrhea Stated complaint: Hypertension Time Seen by Provider: 01/27/19 15:13 Source: patient, EMS, RN notes reviewed, old records reviewed Mode of arrival: EMS Limitations: no limitations - History of Present Illness Initial comments: Patient is a pleasant 74-year-old female presenting to the emergency department with nausea and hypertension. Patient has dementia and is a poor historian. Family does arrive and provides majority of history. Patient had blood pressure of 260/120 prior to arrival. Patient has been nauseated and family questioned if she has been taking her medication. Patient does complain of continued nausea. Patient denies any abdominal pain or pain. Further history is limited. - Related Data Home Medications Medication Instructions Recorded Confirmed Pravastatin Sodium [Pravachol] 40 mg PO Q48H 08/18/15 01/26/19 Cyanocobalamin [Vitamin B-12 1,000 mg IM QMONTH 09/04/18 01/26/19 Injection] Ferrous Sulfate [Feosol] 325 mg PO DAILY 09/04/18 01/26/19 Magnesium Hydroxide [Milk of 2,400 ml PO DAILY PRN 09/04/18 01/26/19 Magnesia] traZODone HCL 25 mg PO HS 09/04/18 01/26/19 Albuterol Nebulized [Ventolin 2.5 mg INHALATION RT-Q4H PRN 10/27/18 01/26/19 Nebulized] Bisacodyl [Dulcolax] 10 mg RECTAL DAILY PRN 10/27/18 01/26/19 Losartan Potassium 100 mg PO DAILY 10/27/18 01/26/19 Acetaminophen Tab [Tylenol Tab] 650 mg PO Q4H PRN 01/26/19 01/26/19 Apixaban [Eliquis] 2.5 mg PO BID 01/26/19 01/26/19 Colloidal Oatmeal [Eucerin Eczema 1 applic TOPICAL HS 01/26/19 01/26/19 Relief] Furosemide [Lasix] 40 mg PO BID@0900,1500 01/26/19 01/26/19 Magnesium Oxide 400 mg PO DAILY 01/26/19 01/26/19 Mylanta Ds 30 ml PO Q4H PRN 01/26/19 01/26/19 Ondansetron HCl [Zofran] 4 mg PO DAILY PRN 01/26/19 01/26/19 Povidone-Iodine [Betadine] 1 applic TOPICAL HS 01/26/19 01/26/19 Soothe & Cool Powder 1 applic TOPICAL BID 01/26/19 01/26/19 Spironolactone [Aldactone] 25 mg PO DAILY 01/26/19 01/26/19 cloNIDine HCL [Catapres] 0.1 mg PO TID 01/26/19 01/26/19 Previous Rx's Medication Instructions Recorded Diltiazem Oral [Cardizem*] 60 mg PO TID tab 11/03/18 Hydrocodone/Acetaminophen [[place] 1 tab PO Q6HR PRN #12 tablet 11/03/18 7.5-325] Omeprazole [PriLOSEC] 20 mg PO BID #0 11/03/18 Allergies Allergy/AdvReac Type Severity Reaction Status Date / Time No Known Allergies Allergy Verified 01/26/19 11:25 Review of Systems ROS Statement: Those systems with pertinent positive or pertinent negative responses have been documented in the HPI. ROS Other: All systems not noted in ROS Statement are negative. Constitutional: Denies: fever Eyes: Denies: eye pain ENT: Denies: ear pain Respiratory: Denies: cough Cardiovascular: Denies: chest pain Endocrine: Denies: fatigue Gastrointestinal: Reports: nausea. Denies: abdominal pain Genitourinary: Denies: dysuria Musculoskeletal: Denies: back pain Skin: Denies: rash Neurological: Denies: headache Past Medical History Past Medical History: Atrial Fibrillation, Dementia, GERD/Reflux, H yperlipidemia, Hypertension, Memory Impairment, Pneumonia Additional Past Medical History / Comment(s): IRON DEFICIENCY, ANEMIA, SPONDYLOPATHY, CERVICAL REGION, DEGEN. DISC DX,CERVICAL AREA., FX 6TH CERVICAL VERTEBRAE, FX RT FEMUR,INTESTINAL BYPASS AND ANASTOMOSIS STATUS, interstitial lung disease History of Any Multi-Drug Resistant Organisms: MRSA Date of last positivie culture/infection: 09/04/18 MDRO Source:: LEG Past Surgical History: Hysterectomy, Joint Replacement, Tonsillectomy Additional Past Surgical History / Comment(s): rt knee replacement; gastric bypass Past Anesthesia/Blood Transfusion Reactions: No Reported Reaction Past Psychological History: Depression Smoking Status: Never smoker Past Alcohol Use History: None Reported Past Drug Use History: None Reported - Past Family History Father History Unknown: Yes Mother Additional Family Medical History / Comment(s): Rheumatic fever, htn, pneumonia, sepsis General Exam Limitations: no limitations General appearance: alert, in no apparent distress Head exam: Present: atraumatic Eye exam: Present: normal appearance ENT exam: Present: normal oropharynx Neck exam: Present: normal inspection Respiratory exam: Present: normal lung sounds bilaterally Cardiovascular Exam: Present: regular rate, normal rhythm GI/Abdominal exam: Present: soft. Absent: tenderness Extremities exam: Present: pedal edema (+1 bilateral). Absent: calf tenderness Neurological exam: Present: alert, altered. Absent: motor sensory deficit Expanded Patient oriented to: Present: person. Absent: place, time Psychiatric exam: Present: normal affect, normal mood Skin exam: Present: normal color Course Vital Signs 01/27/19 01/27/19 01/27/19 15:09 15:47 16:12 Temperature 98.4 F 99.3 F Pulse Rate 104 H 105 H Respiratory 18 18 18 Rate Blood Pressure 181/95 166/93 160/85 O2 Sat by Pulse 96 94 L Oximetry EKG Findings - EKG Comments: EKG Findings:: Irregular narrow complex rhythm with a rate of 94. QRS 92. QT 334. QTC 417. Normal axis. Normal QRS. Nonspecific T waves. Medical Decision Making - Medical Decision Making Patient reevaluated and resting comfortably in bed. Patient states nausea has improved. Family updated on results. Family requests admission Feel comfortable with discharge home. Case was discussed with Dr. nguyen, who will admit. - Lab Data Result diagrams: 01/27/19 15:30 01/27/19 15:30 Lab Results 01/27/19 01/27/19 Range/Units 15:30 15:30 WBC 14.0 H (3.8-10.6) k/uL RBC 4.40 (3.80-5.40) m/uL Hgb 13.2 (11.4-16.0) gm/dL Hct 40.0 (34.0-46.0) % MCV 90.8 (80.0-100.0) fL MCH 29.9 (25.0-35.0) pg MCHC 33.0 (31.0-37.0) g/dL RDW 14.8 (11.5-15.5) % Plt Count 217 (150-450) k/uL Neutrophils % 85 % Lymphocytes % 7 % Monocytes % 7 % Eosinophils % 1 % Basophils % 0 % Neutrophils # 11.9 H (1.3-7.7) k/uL Lymphocytes # 1.0 (1.0-4.8) k/uL Monocytes # 1.0 (0-1.0) k/uL Eosinophils # 0.1 (0-0.7) k/uL Basophils # 0.0 (0-0.2) k/uL Sodium 140 (137-145) mmol/L Potassium 3.6 (3.5-5.1) mmol/L Chloride 103 (98-107) mmol/L Carbon Dioxide 27 (22-30) mmol/L Anion Gap 10 mmol/L BUN 21 H (7-17) mg/dL Creatinine 0.90 (0.52-1.04) mg/dL Est GFR (CKD-EPI)AfAm 72 (>60 ml/min/1.73 sqM) Est GFR (CKD-EPI)NonAf 63 (>60 ml/min/1.73 sqM) Glucose 133 H (74-99) mg/dL Calcium 10.0 (8.4-10.2) mg/dL Total Bilirubin 1.2 (0.2-1.3) mg/dL AST 30 (14-36) U/L ALT 27 (9-52) U/L Alkaline Phosphatase 78 (38-126) U/L Total Protein 7.1 (6.3-8.2) g/dL Albumin 4.1 (3.5-5.0) g/dL Amylase 36 (30-110) U/L Lipase 31 (23-300) U/L - Radiology Data Radiology results: image reviewed Disposition Clinical Impression: Hypertension, Vomiting Disposition: ADMITTED IP TO THIS [facility] Is patient prescribed a controlled substance at d/c from ED?: No Referrals: Srikanth Ashby MD [Primary Care Provider] - 1-2 days Decision Time: 16:50
[2019-01-27 15:45] LABS: Basophils % (A) 0 %; Eosinophils # (A) 0.1 k/uL (0-0.7); Eosinophils % (A) 1 %; HGB 13.2 gm/dL (11.4-16.0); Lymphocytes % (A) 7 %; MCH 29.9 pg (25.0-35.0); MCV 90.8 fL (80.0-100.0); Mean Platelet Volume 9.1; Monocytes % (A) 7 %; Neutrophils # (A) 11.9 k/uL (1.3-7.7); Neutrophils % (A) 85 %; Platelet Count 217 k/uL (150-450); RDW 14.8 % (11.5-15.5)
[2019-01-27 15:54] LABS: Albumin 4.1 g/dL (3.5-5.0); Potassium 3.6 mmol/L (3.5-5.1); Total Bilirubin 1.2 mg/dL (0.2-1.3); Total Protein 7.1 g/dL (6.3-8.2)
[2019-01-27] MEDS ORDERED: NALOXONE 0.4 MG/ML 1 ML VIAL IV PRN (16:50)
[2019-01-27] MEDS ORDERED: ONDANSETRON 4 MG TAB PO PRN (16:52)
[2019-01-27 17:12] LABS: Appearance,Urine Clear (Clear); Bilirubin,Urine Negative (Negative); Blood,Urine Negative (Negative); Color,Urine Yellow; Glucose,Urine (UA) Negative (Negative); Hyaline Casts,Urine 7 /lpf (0-2); Ketones,Urine 1+ (Negative); Leukocyte Esterase,Urine Negative (Negative); Mucus,Urine Rare /hpf; Nitrite,Urine Negative (Negative); PH, Urine 5.5 (5.0-8.0); Protein,Urine 1+ (Negative); RBC,Urine 4 /hpf (0-5); Specific Gravity,Urine 1.017 (1.001-1.035); WBC,Urine 2 /hpf (0-5)
[2019-01-27] MEDS: DILTIAZEM ORAL 60 MG TAB PO SCH ×2 (18:13→20:27)
[2019-01-27] MEDS: METOCLOPRAMIDE 5 MG/ML 2 ML VIAL IVP SCH ×2 (18:38→23:24)
[2019-01-27] MEDS: SODIUM CHLORIDE 0.9% 1,000 ML IV SCH (18:39)
[2019-01-27] MEDS: hydrALAZINE HCL 20 MG/ML 1 ML VIAL IVP PRN (19:01)
[2019-01-27] MEDS: traZODone HCL 50 MG TAB PO SCH (20:27)
[2019-01-27] MEDS: cloNIDine HCL 0.1 MG TAB PO SCH (20:27)
[2019-01-27] MEDS: APIXABAN 2.5 MG TABLET PO SCH (20:27)
[2019-01-27] MEDS: HYDROcodone/APAP 7.5-325MG 1 EACH TAB PO PRN (20:28)
--- NOTE | 2019-01-27 21:51 | XR ---
EXAMINATION TYPE: XR KUB DATE OF EXAM: 01/27/2019 4:07 PM CLINICAL HISTORY: Abdominal pain, nausea TECHNIQUE: Single supine KUB image of the abdomen is obtained. COMPARISON: None. FINDINGS: No dilated bowel. Moderate stool burden. Evaluation for free air limited due to supine technique. No abnormal intra-abdominal calcifications. Lower lumbar spine fusion hardware. Coarse calcifications in the left gluteal soft tissues. IMPRESSION: Overall nonobstructive bowel gas pattern.
--- NOTE | 2019-01-27 21:51 | XR ---
EXAMINATION TYPE: XR chest 1V portable DATE OF EXAM: 01/27/2019 COMPARISON: Chest radiograph 01/26/2019 HISTORY: Pain, weakness TECHNIQUE: Single frontal view of the chest is obtained. FINDINGS: Unchanged appearance elevation of right hemidiaphragm with subsegmental basilar consolidat ion and/or pleural effusion. Left lung is clear. No pneumothorax. Cardiac silhouette stable in size. Atherosclerotic aortic calcifications. Osseous structures are intact. IMPRESSION: Stable exam with persistent apparent elevation of right hemidiaphragm.
[2019-01-28] MEDS: HYDROcodone/APAP 7.5-325MG 1 EACH TAB PO PRN (02:16)
[2019-01-28] MEDS: METOCLOPRAMIDE 5 MG/ML 2 ML VIAL IVP SCH ×4 (05:43→23:20)
[2019-01-28] MEDS: SODIUM CHLORIDE 0.9% 1,000 ML IV SCH ×2 (05:43→21:13)
[2019-01-28] MEDS: hydrALAZINE HCL 20 MG/ML 1 ML VIAL IVP PRN (05:47)
[2019-01-28] MEDS: LOSARTAN 50 MG TAB PO SCH (09:35)
[2019-01-28] MEDS: APIXABAN 2.5 MG TABLET PO SCH ×2 (09:35→20:05)
[2019-01-28] MEDS: SPIRONOLACTONE 25 MG TAB PO SCH (09:36)
[2019-01-28] MEDS: PANTOPRAZOLE 40 MG/10 ML VIAL IV SCH (09:36)
[2019-01-28] MEDS: cloNIDine HCL 0.1 MG TAB PO SCH ×3 (09:36→21:12)
[2019-01-28] MEDS ORDERED: ONDANSETRON 4 MG TAB PO PRN (10:32)
[2019-01-28] MEDS ORDERED: BISACODYL 10 MG SUPP RECTAL PRN (11:58)
[2019-01-28] MEDS ORDERED: ACETAMINOPHEN TAB 325 MG TAB PO PRN (11:58)
[2019-01-28] MEDS ORDERED: ALBUTEROL NEBULIZED 2.5 MG/3 ML INHALATION PRN (11:58)
[2019-01-28] MEDS: PRAVASTATIN SODIUM 40 MG TAB PO SCH (13:13)
[2019-01-28] MEDS: PANTOPRAZOLE 40 MG TABLET PO SCH (17:39)
[2019-01-28] MEDS: FUROSEMIDE 40 MG TAB PO SCH (17:39)
[2019-01-28] MEDS: DILTIAZEM ORAL 60 MG TAB PO SCH (17:39)
[2019-01-28] MEDS: traZODone HCL 50 MG TAB PO SCH (20:05)
--- NOTE | 2019-01-28 20:15 | P.HPIM ---
History of Present Illness H&P Date: 01/28/19 Chief Complaint: -Blood pressure nausea History of presenting complaint: This is a 74-year-old patient who follows with Dr. Ashby at [facility]. Chronic stable medical conditions include atrial fibrillation, CHF from diastolic dysfunction EF 50-55%, major cognitive impairment, GERD, hypertension, hyperlipidemia, or strength redness, history of Lacey-en-Y gastric bypass warren rgery. Patient was brought in when patient been complaining of 1 or 2 days of increasing blood pressure and nausea. Decreased appetite. Patient herself is a limited historian. EMS run sheet cyst that patient's blood pressure initially was recorded at 195/90 then a repeat blood pressure was 145/107. Patient been having nausea and decreased appetite. No fever no chills. Patient to baseline is able to transfer herself from bed to the wheelchair. Not really ambulatory. Denies any chest pain fever or chills. No shortness of breath. Review of systems: GEN.: Tired EYES: None HEENT: None NECK: None RESPIRATORY: None CARDIOVASCULAR: None GASTROINTESTINAL: Nausea] GENITOURINARY: None MUSCULOSKELETAL: Some pain in joints LYMPHATICS: None HEMATOLOGICAL: None PSYCHIATRY: Forgetful NEUROLOGICAL: Barely able to stand, uses a wheelchair Past medical history to include: Persistent atrial fibrillation, chronic congestive heart failure from diastolic dysfunction EF 50-55%, major cognitive impairment from late onset Alzheimer's dementia, GERD, hypertension, hyperlipidemia, primary [place] arthritis, gastric bypass surgery with Lacey-en-Y surgery, chronic medical debility uses wheelchair, interstitial lung disease Social history: No smoking. No alcohol. Resident of [facility] Family history: Hypertension, rheumatic fever Physical examination: VITAL SIGNS: 98.4, 104, 18, 180 one by 95, 96% room air GENERAL: BMI is 36, sitting up in bed, relatively [place]. EYES: Pupils equal. Conjunctiva normal. HEENT: External appearance of nose and ears normal, oral cavity grossly normal. NECK: JVD not raised; masses not palpable. HEART: Irregular heart sounds; some edema]. LUNGS: Respiratory rate normal; clear to auscultation. ABDOMEN: Soft, nontender, liver spleen not palpable, no masses palpable. PSYCH: Patient is limited rather not answering questionsl. NEUROLOGICAL: Cranial nerves grossly intact; no facial asymmetry, power and sensation grossly intact. LYMPHATICS: No lymph nodes palpable in the axilla and neck MUSCULOSKELETAL: Evidence of OA in the hands INVESTIGATIONS, reviewed in the clinical context: White count 14, hemoglobin 13.2 potassium 3.6 creatinine 0.9 UA negative EKG tracing personally reviewed by me-atrial flutter fibrillation with a ventricular rate of 94 Chest x-ray film personally reviewed by me-showing some cardiomegaly, elevated right diaphragm, questionable right infiltrate Assessment: -Possible right lower lobe pneumonia suspected gram-negative organism -Essential hypertension with urgency -Persistent atrial flutter fibrillation, rate controlled -Chronic congestive heart failure from gastric dysfunction EF 50-55% -Hypertensive heart disease -Major cognitive impairment from late onset is in seventh dementia -GERD -Hyperlipidemia -Primary osteoarthritis -Gastric bypass surgery with Lacey-en-Y, chronic -Chronic medical debility uses a wheelchair -Interstitial lung disease, chronic -DO NOT RESUSCITATE Plan: We'll start the patient on IV ceftriaxone. Home medications resumed. We'll change the patient to long-acting Cardizem 240 mg a day. Care was discussed with the patient. Past Medical History Past Medical History: Atrial Fibrillation, Dementia, GERD/Reflux, Hyperlipidemia, Hypertension, Memory Impairment, Pneumonia Additional Past Medical History / Comment(s): IRON DEFICIENCY, ANEMIA, SPONDYLOPATHY, CERVICAL REGION, DEGEN. DISC DX,CERVICAL AREA., FX 6TH CERVICAL VERTEBRAE, FX RT FEMUR,INTESTINAL BYPASS AND ANASTOMOSIS STATUS, interstitial lung disease History of Any Multi-Drug Resistant Organisms: MRSA Date of last positivie culture/infection: 09/04/18 MDRO Source:: LEG Past Surgical History: Hysterectomy, Joint Replacement, Tonsillectomy Additional Past Surgical History / Comment(s): rt knee replacement; gastric bypa ss Past Anesthesia/Blood Transfusion Reactions: No Reported Reaction Past Psychological History: Depression Smoking Status: Never smoker Past Alcohol Use History: None Reported Past Drug Use History: None Reported - Past Family History Father History Unknown: Yes Mother Additional Family Medical History / Comment(s): Rheumatic fever, htn, pneumonia, sepsis Medications and Allergies Home Medications Medication Instructions Recorded Confirmed Type Pravastatin Sodium [Pravachol] 40 mg PO Q48H 08/18/15 01/27/19 History Cyanocobalamin [Vitamin B-12 1,000 mg IM Q30D 09/04/18 01/27/19 History Injection] Ferrous Sulfate [Feosol] 325 mg PO DAILY@0900 09/04/18 01/27/19 History Magnesium Hydroxide [Milk of 2,400 mg PO DAILY PRN 09/04/18 01/27/19 History Magnesia] traZODone HCL 25 mg PO HS@2100 09/04/18 01/27/19 History Albuterol Nebulized [Ventolin 2.5 mg INHALATION RT-Q4H PRN 10/27/18 01/27/19 History Nebulized] Bisacodyl [Dulcolax] 10 mg RECTAL DAILY PRN 10/27/18 01/27/19 History Losartan Potassium 100 mg PO DAILY@0900 10/27/18 01/27/19 History Hydrocodone/Acetaminophen [[place] 1 tab PO Q6HR PRN #12 tablet 11/03/18 01/27/19 Rx 7.5-325] Acetaminophen Tab [Tylenol Tab] 650 mg PO Q4H PRN 01/26/19 01/27/19 History Apixaban [Eliquis] 2.5 mg PO BID@0900,2100 01/26/19 01/27/19 History Colloidal Oatmeal [Eucerin Eczema 1 applic TOPICAL HS 01/26/19 01/27/19 History Relief] Furosemide [Lasix] 40 mg PO BID@0900,1500 01/26/19 01/27/19 History Magnesium Oxide 400 mg PO DAILY@0900 01/26/19 01/27/19 History Mylanta Ds 30 ml PO Q4H PRN 01/26/19 01/27/19 History Ondansetron HCl [Zofran] 4 mg PO Q4H PRN 01/26/19 01/27/19 History Povidone-Iodine [Betadine] 1 applic TOPICAL HS 01/26/19 01/27/19 History Soothe & Cool Powder 1 applic TOPICAL BID 01/26/19 01/27/19 History Spironolactone [Aldactone] 25 mg PO DAILY@0900 01/26/19 01/27/19 History cloNIDine HCL [Catapres] 0.1 mg PO TID@0600,1400,2200 01/26/19 01/27/19 History Diltiazem Oral [Cardizem Oral] 60 mg PO TID@0600,1400,2200 01/27/19 01/27/19 History Omeprazole [PriLOSEC] 20 mg PO BID@0600,1700 01/27/19 01/27/19 History Allergies Allergy/AdvReac Type Severity Reaction Status Date / Time No Known Allergies Allergy Verified 01/27/19 17:05 Physical Exam Vitals: Vital Signs Temp Pulse Pulse Resp BP BP Pulse Ox 01/28/19 08:00 97.8 F 109 H 187/104 92 L 01/28/19 06:37 175/92 01/28/19 05:47 188/97 01/28/19 03:10 98.2 F 105 H 16 172/80 92 L 01/27/19 23:10 98.4 F 73 18 156/81 92 L 01/27/19 20:10 170/84 01/27/19 19:45 20 01/27/19 18:55 99.1 F 108 H 20 173/96 01/27/19 18:06 106 H 18 157/98 96 01/27/19 16:12 18 160/85 01/27/19 15:47 99.3 F 105 H 18 166/93 94 L 01/27/19 15:09 98.4 F 104 H 18 181/95 96 Intake and Output 01/27/19 01/28/19 01/28/19 22:59 06:59 14:59 Output Total 200 Balance -200 Output: Urine 200 Straight 200 Other: # Voids 1 Weight 95.254 kg Results CBC & Chem 7: 01/27/19 15:30 01/27/19 15:30 Labs: Abnormal Lab Results - Last 24 Hours (Table) 01/27/19 01/27/19 01/27/19 Range/Units 15:30 15:30 17:06 WBC 14.0 H (3.8-10.6) k/uL Neutrophils # 11.9 H (1.3-7.7) k/uL BUN 21 H (7-17) mg/dL Glucose 133 H (74-99) mg/dL Urine Protein 1+ H (Negative) Urine Ketones 1+ H (Negative) Hyaline Casts 7 H (0-2) /lpf Urine Mucus Rare H (None) /hpf
[2019-01-28] MEDS ORDERED: POVIDONE IODINE TOPICAL SCH (21:00)
[2019-01-28] MEDS ORDERED: NON-FORMULARY DRUG (Colloidal Oatmeal [Eucerin Eczema Relief] 1 APPLIC) TOPICAL SCH (21:00)
[2019-01-28] MEDS: DILTIAZEM CD 240 MG CAP.ER.24H PO SCH (21:12)
[2019-01-29] MEDS: PANTOPRAZOLE 40 MG TABLET PO SCH ×2 (05:57→16:12)
[2019-01-29] MEDS: METOCLOPRAMIDE 5 MG/ML 2 ML VIAL IVP SCH ×3 (05:57→17:36)
[2019-01-29 06:22] LABS: Basophils % (A) 0 %; Eosinophils % (A) 0 %; HCT 39.6 % (34.0-46.0); HGB 12.9 gm/dL (11.4-16.0); Lymphocytes % (A) 8 %; MCH 30.3 pg (25.0-35.0); MCHC 32.7 g/dL (31.0-37.0); MCV 92.7 fL (80.0-100.0); Mean Platelet Volume 9.7; Monocytes % (A) 8 %; Neutrophils # (A) 10.2 k/uL (1.3-7.7); Neutrophils % (A) 82 %; Platelet Count 191 k/uL (150-450); RBC 4.27 m/uL (3.80-5.40); RDW 15.2 % (11.5-15.5); WBC 12.4 k/uL (3.8-10.6)
[2019-01-29 06:38] LABS: Calcium 9.5 mg/dL (8.4-10.2); Potassium 3.1 mmol/L (3.5-5.1)
[2019-01-29] MEDS: FUROSEMIDE 40 MG TAB PO SCH ×2 (08:56→16:12)
[2019-01-29] MEDS: APIXABAN 2.5 MG TABLET PO SCH ×2 (08:56→20:48)
[2019-01-29] MEDS: cloNIDine HCL 0.1 MG TAB PO SCH (08:56)
[2019-01-29] MEDS: SPIRONOLACTONE 25 MG TAB PO SCH (08:56)
[2019-01-29] MEDS: PANTOPRAZOLE 40 MG/10 ML VIAL IV SCH (08:57)
[2019-01-29] MEDS: LOSARTAN 50 MG TAB PO SCH (08:57)
[2019-01-29] MEDS: SODIUM CHLORIDE 0.9% 1,000 ML IV SCH ×2 (08:57→20:50)
--- NOTE | 2019-01-29 14:11 | P.PN ---
Progress Note - Text Progress Note Date: 01/29/19 Chief Complaint: -Increased Blood pressure , nausea Interval history: This is a 74-year-old patient who follows with Dr. Ashby at [facility]. Chronic stable medical conditions include atrial fibrillation, CHF from diastolic dysfunction EF 50-55%, major cognitive impairment, GERD, hypertension, hyperlipidemia, or strength redness, history of Lacey-en-Y gastric bypass surgery. Patient was brought in when patient been complaining of 1 or 2 days of increasing blood pressure and nausea. Decreased appetite. Patient herself is a limited historian. EMS run sheet cyst that patient's blood pressure initially was recorded at 195/90 then a repeat blood pressure was 145/107. Patient been having nausea and decreased appetite. No fever no chills. Patient to baseline is able to transfer herself from bed to the wheelchair. Not really ambulatory. Denies any chest pain fever or chills. No shortness of breath. Patient admitted with a working diagnosis of limited blood pressure, right lower lobe pneumonia Today-propped up in bed. Feels more comfortable. Much improved nausea. Did tolerate some diet. No cough. Review of systems: Was done for constitutional, cardiovascular, GI, pulmonary. relevant finding as above Active Medications Acetaminophen (Tylenol Tab) 650 mg PO Q4H PRN PRN Reason: GENERAL DISCOMFORT Hydrocodone Bitart/Acetaminophen ([place] 7.5-325) 1 each PO Q6H PRN PRN Reason: Pain Last Admin: 01/28/19 02:16 Dose: 1 each Documented by: Albuterol Sulfate (Ventolin Nebulized) 2.5 mg INHALATION RT-Q4H PRN PRN Reason: Shortness Of Breath Apixaban (Eliquis) 2.5 mg PO BID [facility] Last Admin: 01/29/19 08:56 Dose: 2.5 mg Documented by: Bisacodyl (Dulcolax) 10 mg RECTAL DAILY PRN PRN Reason: Constipation Clonidine (Catapres) 0.1 mg PO TID [facility] Last Admin: 01/29/19 08:56 Dose: 0.1 mg Documented by: Diltiazem HCl (Cardizem Cd) 240 mg PO HS [facility] Last Admin: 01/28/19 21:12 Dose: 240 mg Documented by: Furosemide (Lasix) 40 mg PO BID@0900,1500 [facility] Last Admin: 01/29/19 08:56 Dose: 40 mg Documented by: Hydralazine HCl (Apresoline) 10 mg IVP Q4HR PRN PRN Reason: Blood Pressure - High Last Admin: 01/28/19 05:47 Dose: 10 mg Documented by: Sodium Chloride (Saline 0.9%) 1,000 mls @ 75 mls/hr IV .[id number] [facility] Last Admin: 01/29/19 08:57 Dose: 75 mls/hr Documented by: Losartan Potassium (Cozaar) 100 mg PO DAILY [facility] Last Admin: 01/29/19 08:57 Dose: 100 mg Documented by: Metoclopramide HCl (Reglan) 10 mg IVP Q6HR [facility] Last Admin: 01/29/19 12:15 Dose: 10 mg Documented by: Naloxone HCl (Narcan) 0.2 mg IV Q2M PRN PRN Reason: Opioid Reversal Ondansetron HCl (Zofran) 4 mg PO Q6HR PRN PRN Reason: Nausea Pantoprazole Sodium (Protonix) 40 mg PO BID@0600,1700 [facility] Last Admin: 01/29/19 05:57 Dose: 40 mg Documented by: Pravastatin Sodium (Pravachol) 40 mg PO Q48H [facility] Last Admin: 01/28/19 13:13 Dose: 40 mg Documented by: Spironolactone (Aldactone) 25 mg PO DAILY [facility] Last Admin: 01/29/19 08:56 Dose: 25 mg Documented by: Trazodone HCl (Desyrel) 25 mg PO HS [facility] Last Admin: 01/28/19 20:05 Dose: 25 mg Documented by: Physical examination: VITAL SIGNS: 98.1, 1 or 2, 16, 164.86, 90% room air GENERAL: BMI is 36, propped up in bed, tired appearing. EYES: Pupils equal. Conjunctiva normal. HEENT: External appearance of nose and ears normal, oral cavity grossly normal. NECK: JVD not raised; masses not palpable. HEART: Irregular heart sounds; some edema]. LUNGS: Respiratory rate normal; clear to auscultation. ABDOMEN: Soft, nontender, liver spleen not palpable, no masses palpable. PSYCH: Answering simple questions, a bit of a blank affect. MUSCULOSKELETAL: Evidence of OA in the hands INVESTIGATIONS, reviewed in the clinical context: White count 12.4 increased neutrophils potassium 3.1 creatinine 0.87 Admission tests: White count 14, hemoglobin 13.2 potassium 3.6 creatinine 0.9 UA negative EKG tracing personally reviewed by me-atrial flutter fibrillation with a ventricular rate of 94 Chest x-ray film personally reviewed by me-showing some cardiomegaly, elevated right diaphragm, questionable right infiltrate Assessment: -Possible right lower lobe pneumonia suspected gram-negative organism, improving -Essential hypertension with urgency, improving -Persistent atrial flutter fibrillation, rate controlled -Chronic congestive heart failure from diastolic dysfunction EF 50-55% -Hypertensive heart disease -Major cognitive impairment from late onset is in seventh dementia -GERD -Hyperlipidemia -Primary osteoarthritis -Gastric bypass surgery with Lacey-en-Y, chronic -Chronic medical debility uses a wheelchair -Interstitial lung disease, chronic -DO NOT RESUSCITATE Plan: Continue with IV ceftriaxone. Was put on long-acting Cardizem yesterday. Replace potassium. Will increase Catapres to 0.2 mg every 12
[2019-01-29] MEDS ORDERED: POTASSIUM CHLORIDE ER 20 MEQ TAB.ER PO STA (15:04)
[2019-01-29] MEDS: DILTIAZEM CD 240 MG CAP.ER.24H PO SCH (20:48)
[2019-01-29] MEDS: cloNIDine HCL 0.2 MG TAB PO SCH (20:48)
[2019-01-29] MEDS: traZODone HCL 50 MG TAB PO SCH (20:48)
[2019-01-30] MEDS: METOCLOPRAMIDE 5 MG/ML 2 ML VIAL IVP SCH ×3 (00:48→11:16)
[2019-01-30 04:43] VITALS: RESP 16
[2019-01-30] MEDS: PANTOPRAZOLE 40 MG TABLET PO SCH (05:22)
[2019-01-30] MEDS: SPIRONOLACTONE 25 MG TAB PO SCH (08:24)
[2019-01-30] MEDS: LOSARTAN 50 MG TAB PO SCH (08:25)
[2019-01-30] MEDS: FUROSEMIDE 40 MG TAB PO SCH ×2 (08:25→14:42)
[2019-01-30] MEDS: cloNIDine HCL 0.2 MG TAB PO SCH (08:25)
[2019-01-30] MEDS: APIXABAN 2.5 MG TABLET PO SCH (08:25)
[2019-01-30 09:19] LABS: Calcium 9.2 mg/dL (8.4-10.2)
[2019-01-30 09:38] LABS: Basophils % (A) 0 %; Eosinophils # (A) 0.1 k/uL (0-0.7); Eosinophils % (A) 1 %; HCT 40.5 % (34.0-46.0); Lymphocytes # (A) 1.1 k/uL (1.0-4.8); Lymphocytes % (A) 12 %; MCH 29.5 pg (25.0-35.0); MCV 92.1 fL (80.0-100.0); Mean Platelet Volume 9.4; Monocytes # (A) 0.8 k/uL (0-1.0); Monocytes % (A) 8 %; Neutrophils # (A) 7.1 k/uL (1.3-7.7); Neutrophils % (A) 77 %; Platelet Count 200 k/uL (150-450); RDW 14.5 % (11.5-15.5); WBC 9.2 k/uL (3.8-10.6)
[2019-01-30] MEDS: PRAVASTATIN SODIUM 40 MG TAB PO SCH (11:16)
[2019-01-30] MEDS: SODIUM CHLORIDE 0.9% 1,000 ML IV SCH (11:16)
[2019-01-30 11:58] VITALS: BP 137/81; PULSE 82; TEMP 97.9
[2019-01-30] MEDS ORDERED: CEFDINIR 300 MG CAP PO STA (12:56)
--- NOTE | 2019-01-30 12:56 | P.DS ---
Providers Date of admission: 01/27/19 16:50 Expected date of discharge: 01/30/19 Attending physician: Hill Hancock Primary care physician: Srikanth Ashby Hospital Course: Chief Complaint: -Increased Blood pressure , nausea Hospital course: This is a 74-year-old patient who follows with Dr. Ashby at [facility]. Chronic stable medical conditions include atrial fibrillation, CHF from diastolic dysfunction EF 50-55%, major cognitive impairment, GERD, hypertension, hyperlipidemia, history of Lacey-en-Y gastric bypass surgery. Patient was brought in when patient been complaining of 1 or 2 days of increasing blood pressure and nausea. Decreased appetite. Patient herself is a limited historian. EMS run sheet stated that patient's blood pressure initially was recorded at 195/90 then a repeat blood pressure was 145/107. Patient been having nausea and decreased appetite. No fever no chills. Patient to baseline is able to transfer herself from bed to the wheelchair. Not really ambulatory. Denies any chest pain fever or chills. No shortness of breath. Patient admitted with a working diagnosis of limited blood pressure, right lower lobe pneumonia. Regarding much better by the time of discharge. No further nausea. Blood pressure controlled. Today-propped up in bed. Feels more comfortable. Much improved nausea. Did tolerate some diet. No cough. Review of systems: Was done for constitutional, cardiovascular, GI, pulmonary. relevant finding as above Physical examination: VITAL SIGNS: 97.9, 82, 16, 1 37 x 81, 95% room air GENERAL: BMI is 30 4. propped up in bed, comfortable. EYES: Pupils equal. Conjunctiva normal. HEENT: External appearance of nose and ears normal, oral cavity grossly normal. NECK: JVD not raised; masses not palpable. HEART: Irregular heart sounds; some edema]. LUNGS: Respiratory rate normal; clear to auscultation. ABDOMEN: Soft, nontender, liver spleen not palpable, no masses palpable. PSYCH: Answering simple questions, t. MUSCULOSKELETAL: Evidence of OA in the hands INVESTIGATIONS, reviewed in the clinical context: White count 9.2 hemoglobin 13 creatinine 0.77 Admission tests: White count 14, hemoglobin 13.2 potassium 3.6 creatinine 0.9 UA negative EKG tracing personally reviewed by me-atrial flutter fibrillation with a ventricular rate of 94 Chest x-ray film personally reviewed by me-showing some cardiomegaly, elevated right diaphragm, questionable right infiltrate Assessment: -Possible right lower lobe pneumonia suspected gram-negative organism, improving -Essential hypertension with urgency, improved -Persistent atrial flutter fibrillation, rate controlled -Chronic congestive heart failure from diastolic dysfunction EF 50-55% -Hypertensive heart disease -Major cognitive impairment from late onset is in seventh dementia -GERD -Hyperlipidemia -Primary osteoarthritis -Gastric bypass surgery with Lacey-en-Y, chronic -Chronic medical debility uses a wheelchair -Interstitial lung disease, chronic -DO NOT RESUSCITATE Disposition: [facility]CF/[facility] Patient Condition at Discharge: Stable Plan - Discharge Summary New Discharge Prescriptions: New Diltiazem Cd [Cardizem CD] 240 mg PO HS cap.er.24h cloNIDine HCL [Catapres] 0.2 mg PO BID tab Continue Pravastatin Sodium [Pravachol] 40 mg PO Q48H traZODone HCL 25 mg PO HS@2100 Ferrous Sulfate [Feosol] 325 mg PO DAILY@0900 Cyanocobalamin [Vitamin B-12 Injection] 1,000 mg IM Q30D Magnesium Hydroxide [Milk of Magnesia] 2,400 mg PO DAILY PRN PRN Reason: Constipation Bisacodyl [Dulcolax] 10 mg RECTAL DAILY PRN PRN Reason: Constipation Albuterol Nebulized [Ventolin Nebulized] 2.5 mg INHALATION RT-Q4H PRN PRN Reason: Shortness Of Breath Losartan Potassium 100 mg PO DAILY@0900 Magnesium Oxide 400 mg PO DAILY@0900 Spironolactone [Aldactone] 25 mg PO DAILY@0900 Furosemide [Lasix] 40 mg PO BID@0900,1500 Apixaban [Eliquis] 2.5 mg PO BID@0900,2100 Acetaminophen Tab [Tylenol] 650 mg PO Q4H PRN PRN Reason: GENERAL DISCOMFORT Soothe & Cool Powder 1 applic TOPICAL BID Mylanta Ds 30 ml PO Q4H PRN PRN Reason: INDIGESTION/GAS/HEARTBURN/NAUS Ondansetron HCl [Zofran] 4 mg PO Q4H PRN PRN Reason: Nausea Povidone-Iodine [Betadine] 1 applic TOPICAL HS Colloidal Oatmeal [Eucerin Eczema Relief] 1 applic TOPICAL HS Omeprazole [PriLOSEC] 20 mg PO BID@0600,1700 Hydrocodone/Acetaminophen [[place] 7.5-325] 1 tab PO Q6HR PRN #12 tablet PRN Reason: Pain Discontinued cloNIDine HCL [Catapres] 0.1 mg PO TID@0600,1400,2200 Diltiazem Oral [Cardizem Oral] 60 mg PO TID@0600,1400,2200 Discharge Medication List Pravastatin Sodium [Pravachol] 40 mg PO Q48H 08/18/15 [History] Cyanocobalamin [Vitamin B-12 Injection] 1,000 mg IM Q30D 09/04/18 [History] Ferrous Sulfate [Feosol] 325 mg PO DAILY@0900 09/04/18 [History] Magnesium Hydroxide [Milk of Magnesia] 2,400 mg PO DAILY PRN 09/04/18 [History] traZODone HCL 25 mg PO HS@2100 09/04/18 [History] Albuterol Nebulized [Ventolin Nebulized] 2.5 mg INHALATION RT-Q4H PRN 10/27/18 [History] Bisacodyl [Dulcolax] 10 mg RECTAL DAILY PRN 10/27/18 [History] Losartan Potassium 100 mg PO DAILY@0900 10/27/18 [History] Acetaminophen Tab [Tylenol] 650 mg PO Q4H PRN 01/26/19 [History] Apixaban [Eliquis] 2.5 mg PO BID@0900,2100 01/26/19 [History] Colloidal Oatmeal [Eucerin Eczema Relief] 1 applic TOPICAL HS 01/26/19 [History] Furosemide [Lasix] 40 mg PO BID@0900,1500 01/26/19 [History] Magnesium Oxide 400 mg PO DAILY@0900 01/26/19 [History] Mylanta Ds 30 ml PO Q4H PRN 01/26/19 [History] Ondansetron HCl [Zofran] 4 mg PO Q4H PRN 01/26/19 [History] Povidone-Iodine [Betadine] 1 applic TOPICAL HS 01/26/19 [History] Soothe & Cool Powder 1 applic TOPICAL BID 01/26/19 [History] Spironolactone [Aldactone] 25 mg PO DAILY@0900 01/26/19 [History] Omeprazole [PriLOSEC] 20 mg PO BID@0600,1700 01/27/19 [History] Diltiazem Cd [Cardizem CD] 240 mg PO HS cap.er.24h 01/30/19 [Rx] Hydrocodone/Acetaminophen [[place] 7.5-325] 1 tab PO Q6HR PRN #12 tablet 01/30/19 [Rx] cloNIDine HCL [Catapres] 0.2 mg PO BID tab 01/30/19 [Rx] Follow up Appointment(s)/Referral(s): Srikanth Ashby MD [Primary Care Provider] - 01/31/19
[2019-01-30] MEDS ORDERED: POTASSIUM CHLORIDE ER 20 MEQ TAB.ER PO STA (13:32)
== END 2019-01-30 16:11 | DRG 178 ==
LOC: EC 15:04 → 3SCARD 16:50
PROVIDERS: ADMIT Hospitalist; ATTEND Hospitalist
DX: J15.6 Pneumonia due to other Gram-negative bacteria (principal); I48.92 Unspecified atrial flutter; I50.32 Chronic diastolic (congestive) heart failure; J84.9 Interstitial pulmonary disease, unspecified; E78.5 Hyperlipidemia, unspecified; F32.9 Major depressive disorder, single episode, unspecified; I11.0 Hypertensive heart disease with heart failure; I48.91 Unspecified atrial fibrillation; K21.9 Gastro-esophageal reflux disease without esophagitis; M19.91 Primary osteoarthritis, unspecified site; Z66 Do not resuscitate; Z79.01 Long term (current) use of anticoagulants; Z79.899 Other long term (current) drug therapy; Z82.49 Family history of ischemic heart disease and other diseases of the circulatory system; Z90.710 Acquired absence of both cervix and uterus; Z96.651 Presence of right artificial knee joint; Z98.0 Intestinal bypass and anastomosis status; Z98.84 Bariatric surgery status; L30.9 Dermatitis, unspecified; G30.9 Alzheimer's disease, unspecified; F02.80 Dementia in other diseases classified elsewhere, unspecified severity, without behavioral disturbance, psychotic disturbance, mood disturbance, and anxiety; R53.81 Other malaise; Z99.3 Dependence on wheelchair
CPT/HCPCS: 36415; 71045; 71046; 74018; 80048; 80053; 81001; 82150; 83690; 83735; 85025; 85610; 93005; 96361; 96374; 99284; 99285

== ENCOUNTER → 2019-08-03 | Outpatient (CLI) | payer MEDICARE, OTHER ==
--- NOTE | 2019-08-03 15:41 | US ---
EXAMINATION TYPE: US kidneys/renal and bladder DATE OF EXAM: 08/03/2019 COMPARISON: NONE CLINICAL HISTORY: N17.9 Acute kidney injury. EXAM MEASUREMENTS: Right Kidney: 9.0 x 6.0 x 5.0 cm Left Kidney: 9.1 x 5.5 x 4.9 cm Morbidly obese patient with Alzheimer's disease. Severe overlying bowel gas, technically difficult st udy. Right Kidney: partially obscured by overlying bowel, 1 posterior intercostal window, no hydro visuali zed, no obvious masses Left Kidney: Inferior pole obscured by overlying bowel gas Bladder: not fully distended, nonvisualized There is no gross evidence of evidence for hydronephrosis at this point in time. No nephrolithiasis is seen. The urinary poorly distended and nonvisualized. IMPRESSION: Exam is limited by overlying bowel gas and patient body habitus. No gross evidence of hyd ronephrosis or nephrolithiasis.
== END | disposition home or self-care (01) ==
LOC: RADUSWWP 14:43
PROVIDERS: ATTEND Family Medicine
DX: N17.9 Acute kidney failure, unspecified (principal)
CPT/HCPCS: 76770